=== PATIENT | male | born 1945 | race American Indian/Alaskan Native ===

== ENCOUNTER 2016-12-11 07:38 | Inpatient (IN) | payer MEDICARE ==
[2016-12-11] MEDS ORDERED: ECOTRIN PO ONE (08:07)
[2016-12-11 08:35] LABS: Hematocrit 33.3 % (35.5-45.6); Hemoglobin 10.6 gm/dl (11.8-15.2); Mean Corpuscular HGB Conc 32 % (32-34); Mean Corpuscular Volume 80 fl (84-94); Red Blood Count 4.17 M/mm3 (3.65-5.03); Red Cell Distribution Width 16.8 % (13.2-15.2)
[2016-12-11 08:37] LABS: Mean Corpuscular Hemoglobin 26 pg (28-32)
[2016-12-11] MEDS ORDERED: HEPARIN/NS 5000 UNIT/500ML(CATH LAB) 0 ML IR ONE (08:37)
[2016-12-11 08:44] LABS: INR 0.99 (0.87-1.13)
[2016-12-11] MEDS ORDERED: HEPARIN/NS 5000 UNIT/500ML(CATH LAB) 1,000 ML IR ONE (08:50)
[2016-12-11 08:54] LABS: Anion Gap 19 mmol/L; Blood Urea Nitrogen 18 mg/dL (9-20); Carbon Dioxide 26 mmol/L (22-30); Chloride 95.5 mmol/L (98-107); Glucose 241 mg/dL (75-100); Potassium 4.2 mmol/L (3.6-5.0); Sodium 136 mmol/L (137-145)
[2016-12-11] MEDS ORDERED: NACL 0.9% 500 ML 500 ML IV SCH (09:00)
[2016-12-11 09:33] LABS: Blastocytes % (Manual) 0 %
[2016-12-11 09:34] LABS: Ovalocytes 1+; White Blood Count 18.3 K/mm3 (4.5-11.0)
[2016-12-11 09:35] LABS: Anisocytosis Few; Elliptocytes Few; Polychromasia 1+
[2016-12-11 09:36] LABS: Diff Status Complete
[2016-12-11 10:02] LABS: Platelet Count 237 K/mm3 (140-440)
[2016-12-11] MEDS: SUBLIMAZE ONE ×2 (10:20→10:33)
[2016-12-11] MEDS: VERSED ONE ×2 (10:21→10:33)
[2016-12-11] MEDS: CALAN ONE ×2 (10:22→10:35)
[2016-12-11] MEDS: XYLOCAINE 2% INFILTRATI ONE ×2 (10:22→10:34)
[2016-12-11] MEDS: HEPARIN 10,000 UNITS/10 ML ONE ×2 (10:23→10:35)
[2016-12-11] MEDS: NITROGLYCERIN SYRINGE 3 ML ONE ×2 (10:23→10:35)
[2016-12-11] MEDS ORDERED: MILK OF MAGNESIA PO PRN (11:24)
[2016-12-11] MEDS ORDERED: DULCOLAX PR PRN (11:24)
[2016-12-11] MEDS ORDERED: TYLENOL PO PRN (11:24)
[2016-12-11] MEDS ORDERED: ZOFRAN IV PRN (11:24)
--- NOTE | 2016-12-11 12:58 | Event Note ---
Date: 12/11/16 Patient with multiple obstructive CAD lesions mid LAD 70% Mid Cx (OM2 bifurcation) 70 to 80% 100% mid RCA occlusion at the site of a previous stent LVEF 30-35% Recommendations: Admit overnight Dr Maxwell to review angiograms ? PCI VS CABG Continue holding xarelto
--- NOTE | 2016-12-11 13:11 | XRay Report ---
ROUTINE CHEST, TWO VIEWS: HISTORY: Leukocytosis, fever. Heart size and pulmonary vascularity are within normal limits. There is focal thickening along the right minor fissure which was also seen on 10/10/16 and 09/02/16 exam. This probably represents segmental atelectasis or loculated fluid. Consider further evaluation with CT chest with contrast if needed. The remainder of the lungs are clear. IMPRESSION: No acute cardiopulmonary process. Right lung opacity as outlined above.
--- NOTE | 2016-12-11 16:15 | Cardiac Catherization Report ---
NUCLEAR CARDIAC IMAGING INDICATION FOR PROCEDURE: Chest pain, abnormal right cardiac perfusion scan. ORDERING PHYSICIAN: Oswald Kurtz MD PROCEDURES PERFORMED: 1. Selective left and right coronary angiography. 2. Left ventriculography. DESCRIPTION OF PROCEDURE: 1. After obtaining written consent, the patient was draped using sterile technique. 2. A 2% lidocaine was injected into the right wrist. 3. A 5-Georgian vascular sheath was inserted into the right radial artery. 4. A 5-Georgian catheter JL 3.5 was used to selectively engage the left coronary artery. 5. A 5-Georgian JR4 catheter was used to selectively engage the right coronary artery. 6. A 5-Georgian JR4 catheter was used to hand inject the right ventriculogram. 7. No complications occurred during the procedure. 8. Hemostasis was achieved at the end of the procedure using manual pressure. ESTIMATED BLOOD LOSS: Minimal. SPECIMEN REMOVED: None. FINDINGS: HEMODYNAMICS: Aortic pressure was 140/77, LV systolic pressure was 159 mmHg, and left ventricular end-diastolic pressure was measured at 26 mmHg. There was no significant gradient noted across the left ventricular outflow tract. CARDIAC STRUCTURES: The left ventricle is mildly dilated. There is evidence of moderate global left ventricular hypokinesis. The left ventricular ejection fraction is estimated between 30 and 35%. CORONARY ANATOMY: 1. This is a right dominant circulation. 2. The left main had mild nonobstructive luminal irregularities. 3. The left anterior descending artery has evidence for a focal 70% stenosis noted in the mid segment. 4. The left circumflex artery has evidence of a 70 to 80% lesion distal to the bifurcation of the second obtuse marginal. The second obtuse marginal has a patent stent noted in the mid segment. There is also another patent stent noted in the proximal portion of the posterolateral of obtuse marginal branch. 5. The right coronary artery noted to be a 100% occluded in the mid segment at the site of the previously placed stent. There is evidence of faint left to right collaterals noted. IMPRESSION: 1. Evidence of significant 3-vessel disease with a 70% focal stenosis of the mid LAD, 70 to 80% focal stenosis of the mid circumflex artery at the bifurcation of the second obtuse marginal and 100% occlusion of the mid right coronary artery at the previously placed stent. The right coronary artery with patent was noted to be patent back in 01/2014. 2. Moderate global left ventricular hypokinesis with an ejection fraction estimated between 30 and 35%. 3. Elevated LVEDP measured at 26 mmHg. RECOMMENDATIONS: The patient will be recommended for inpatient admission for IV hydration. The patient angiograms will be issued by the Interventional Cardiology and appropriate plan of percutaneous coronary intervention versus coronary artery bypass grafting will be decided based on this review. JOB# [id number] PHILLIP/YVONNE
[2016-12-11] MEDS: GLUCOTROL XL PO SCH ×2 (17:51→17:59)
[2016-12-12 05:43] LABS: Anion Gap 16 mmol/L; Blood Urea Nitrogen 15 mg/dL (9-20); Calcium 8.4 mg/dL (8.4-10.2); Carbon Dioxide 28 mmol/L (22-30); Chloride 98.7 mmol/L (98-107); Glucose 211 mg/dL (75-100); Potassium 4.1 mmol/L (3.6-5.0); Sodium 139 mmol/L (137-145)
[2016-12-12] MEDS ORDERED: ASPIRIN PO SCH (10:00)
[2016-12-12] MEDS ORDERED: COLCRYS PO SCH (10:00)
[2016-12-12] MEDS ORDERED: ZESTRIL PO SCH (10:00)
[2016-12-12] MEDS ORDERED: NON-FORMULARY (Colchicine [Colchicine] 0.6 MG) PO SCH (10:00)
[2016-12-12] MEDS ORDERED: NON-FORMULARY (Atorvastatin [Lipitor] 80 MG) PO SCH (10:00)
[2016-12-12] MEDS ORDERED: LOVENOX SUB-Q SCH (10:00)
--- NOTE | 2016-12-12 10:17 | Admit Criteria Form ---
Admission Criteria Documentation: TELEMETRY CARE Telemetry Admission Guidelines (Place 'X' for any and all applicable criteria): Admission to telemetry [A] may be indicated for ANY ONE of the following(1)(2)(3 )(4)(5): [X]I. Cardiac disease, including ANY ONE of the following (9)(10)(11)(12)(13 ): [ ]a) Postacute NE [ ]b) Low-risk patients with ST-segment elevation NE who have undergone successful percutaneous coronary intervention [ ]c) Unstable angina [ ]d) Suspected NE (until it is ruled out) [ ]e) Post cardiac surgery (first 48 to 72 hours unless complications occur) [ ]f) Acute arrhythmias (including significant tachycardia or bradycardia) [B] [ ]g) Firing of an implantable cardioverter defibrillator [C] [ ]h) Suspected pacemaker or implantable cardioverter defibrillator malfunction (10) [ ]i) New administration or adjustment of an antiarrhythmic drug [D ] [ ]j) Child admitted for acute congestive heart failure [ ]j) Long QT syndrome [ ]k) Advanced heart block (eg, second-degree Mobitz type II, third- degree heart block) [ ]l) Acute myocarditis or pericarditis [X]m) Short-term (ambulatory or inpatient) monitoring after a cardiac procedure as indicated by ANY ONE of the following [E]: [ ]i) Electrophysiologic studies [X]ii) Percutaneous coronary intervention with stent placement [ ]iii) Pacemaker placement with cardiac conduction defect [ ]iv) Implantable cardiac defibrillator placement [ ]II. Drug overdose or poisoning with substance that causes arrhythmias or QT prolongation (eg, phenothiazines, sympathomimetic agents, cyclic antidepressants, digitalis, antiarrhythmic drugs)(15) [ ]III. Short-term (ambulatory or inpatient) monitoring after therapeutic or diagnostic procedure requiring conscious sedation or anesthesia (eg, endoscopy, elective cardioversion) [ ]IV. Acute cerebrovascular even[F](18) [ ]V. Massive blood transfusion (eg, at least 10 units of packed red blood cells in 24 hours) [ ]. Variceal bleeding after endoscopy, sclerotherapy, or IV vasopressin [ ]VII. Uncorrected electrolyte abnormalities associated with an increased risk of dangerous arrhythmia [G]; examples include [ ]a) Hyperkalemia with attributable ECG changes [ ]b) Potassium greater than 6.5 mmol/L (mEq/L) in a patient without history of chronic renal disease [ ]c) Prolonged QT attributed to hypokalemia, hypomagnesemia, or hypocalcemia [ ]VIII.Unexplained syncope or other neurologic event suspected of being due to arrhythmia due to a finding that increases risk; examples include(19)(20)(21): [ ]a) High-risk ECG findings (eg, bifascicular block, bradycardia, abnormal QT interval, ventricular pre- excitation) [ ]b) History of previous syncope due to arrhythmia [ ]c) Abnormal ventricular function (eg, reduced ejection fraction ) [ ]d) Exertional or supine syncope [ ]e) Concerning syncope characteristics (eg, sudden loss of consciousness without prodrome) [ ]f) Family history of sudden [ ]g) Use of arrhythmogenic medication [ ]h) Suspected cardiac ischemia [ ]i) Known channelopathy (eg, long QT syndrome, Brugada syndrome, or catecholaminergic paroxysmal ventricular tachycardia) [ ]j) Known structural heart disease (eg, hypertrophic cardiomyopathy , severe valvular disease) [ ]k) Palpitations preceding syncope The original [employer] content created by [employer] has been revised. The portions of the content which have been revised are identified through the use of italic text or in bold, and [email or web address] has neither reviewed nor approved the modified material. All other unmodified content is copyright [employer]. Please see references footnoted in the original [employer] edition 2016 Admission Criteria Met: Yes
[2016-12-12] MEDS: GLUCOTROL XL PO SCH (10:18)
--- NOTE | 2016-12-12 10:52 | Short Stay Summary ---
<ALBERT CAMERON - Last Filed: 12/12/16 11:22> Short Stay Documentation Date of service: 12/12/16 - History H&P: obtained from office - Allergies and Medications Current Medications: Allergies No Known Allergies Allergy (Verified 04/28/15 18:04) Home Medications Medication Instructions Recorded Confirmed Last Taken Type Atorvastatin [Lipitor] 80 mg PO QDAY #30 tablet 02/04/14 12/11/16 12/10/16 Rx 80mg Lisinopril [Zestril TAB] 2.5 mg PO QDAY #30 tablet 02/04/14 12/11/16 12/11/16 Rx 2.5mg glipiZIDE [glipiZIDE XL] 10 mg PO Q12H #60 tab.er.24 02/04/14 12/11/16 12/10/16 Rx 10mg metFORMIN [Glucophage] 1,000 mg PO BID #60 tablet 02/04/14 12/11/16 12/08/16 Rx 1000mg Aspirin [Adult Low Dose Aspirin EC] 81 mg PO DAILY 11/10/15 12/11/16 12/08/16 History 81mg guaiFENesin ER [Mucinex ER] 600 mg PO BID #14 tablet 09/04/16 12/11/16 12/10/16 Rx 600mg Colchicine 0.6 mg PO DAILY 10/10/16 12/11/16 12/10/16 History 0.6mg Rivaroxaban [Xarelto] 20 mg PO QDAY 10/10/16 12/11/16 12/08/16 History 20mg Active Medications Acetaminophen (Tylenol) 650 mg PO Q4H PRN PRN Reason: Pain MILD(1-3)/Fever >100.5/BOND Last Admin: 12/11/16 21:06 Dose: 650 mg Aspirin (Aspirin) 325 mg PO QDAY [facility] Last Admin: 12/12/16 10:18 Dose: 325 mg Atorvastatin Calcium (Lipitor) 80 mg PO QHS [facility] Last Admin: 12/11/16 21:06 Dose: 80 mg Bisacodyl (Dulcolax) 10 mg HI QDAY PRN PRN Reason: Constipation unrelieved by MOM Colchicine (Colcrys) 0.6 mg PO QDAY [facility] Last Admin: 12/12/16 10:18 Dose: 0.6 mg Enoxaparin Sodium (Lovenox) 40 mg SUB-Q DAILY [facility] Last Admin: 12/12/16 10:18 Dose: 40 mg Glipizide (Glucotrol Xl) 10 mg PO BIDDIAB [facility] Last Admin: 12/12/16 10:18 Dose: 10 mg Lisinopril (Zestril) 2.5 mg PO QDAY [facility] Last Admin: 12/12/16 10:18 Dose: 2.5 mg Magnesium Hydroxide (Milk Of Magnesia) 30 ml PO Q4H PRN PRN Reason: Constipation Ondansetron HCl (Zofran) 4 mg IV Q8H PRN PRN Reason: N/V unrelieved by Reglan - Physical exam General appearance: no acute distress HEENT: PERRLA Lungs: Clear to auscultation Heart: Regular rate Neurological: Normal speech - Brief post op/procedure progress note Condition: stable - Disposition Condition at discharge: Good Disposition: DISCHARGED TO HOME OR SELFCARE Short Stay Discharge Plan Activity: advance as tolerated Diet: low fat, low cholesterol, low salt, diabetic Special Instructions: other (Post cardiac cath instructions) Additional Instructions: RESTART METFORMIN 48HRS POST CARDIAC CATH Follow up with: PRIMARY CAREMD [Primary Care Provider] - 7 Days SARITHA PRASAD MD [Staff Physician] - 7 Days Forms: [facility] PCI D/C Instructions Prescriptions: ISOSORBIDE MONOnitrate [Imdur ER] 60 mg PO QDAY #30 tab.er.24h Clopidogrel [Plavix] 75 mg PO QDAY #30 tablet Ranolazine [Ranexa] 500 mg PO BID #60 tab.er.12h <MAURO RODRIGUEZ - Last Filed: 12/12/16 11:58> Short Stay Documentation - Allergies and Medications Current Medications: Allergies No Known Allergies Allergy (Verified 04/28/15 18:04) Home Medications Medication Instructions Recorded Confirmed Last Taken Type Atorvastatin [Lipitor] 80 mg PO QDAY #30 tablet 02/04/14 12/11/16 12/10/16 Rx 80mg Lisinopril [Zestril TAB] 2.5 mg PO QDAY #30 tablet 02/04/14 12/11/16 12/11/16 Rx 2.5mg glipiZIDE [glipiZIDE XL] 10 mg PO Q12H #60 tab.er.24 02/04/14 12/11/16 12/10/16 Rx 10mg metFORMIN [Glucophage] 1,000 mg PO BID #60 tablet 02/04/14 12/11/16 12/08/16 Rx 1000mg Colchicine 0.6 mg PO DAILY 10/10/16 12/11/16 12/10/16 History 0.6mg Rivaroxaban [Xarelto] 20 mg PO QDAY 10/10/16 12/11/16 12/08/16 History 20mg Clopidogrel [Plavix] 75 mg PO QDAY #30 tablet 12/12/16 Unknown Rx ISOSORBIDE MONOnitrate [Imdur ER] 60 mg PO QDAY #30 tab.er.24h 12/12/16 Unknown Rx Ranolazine [Ranexa] 500 mg PO BID #60 tab.er.12h 12/12/16 Unknown Rx Active Medications Acetaminophen (Tylenol) 650 mg PO Q4H PRN PRN Reason: Pain MILD(1-3)/Fever >100.5/BOND Last Admin: 12/11/16 21:06 Dose: 650 mg Aspirin (Aspirin) 325 mg PO QDAY [facility] Last Admin: 12/12/16 10:18 Dose: 325 mg Atorvastatin Calcium (Lipitor) 80 mg PO QHS [facility] Last Admin: 12/11/16 21:06 Dose: 80 mg Bisacodyl (Dulcolax) 10 mg HI QDAY PRN PRN Reason: Constipation unrelieved by MOM Colchicine (Colcrys) 0.6 mg PO QDAY [facility] Last Admin: 12/12/16 10:18 Dose: 0.6 mg Enoxaparin Sodium (Lovenox) 40 mg SUB-Q DAILY [facility] Last Admin: 12/12/16 10:18 Dose: 40 mg Glipizide (Glucotrol Xl) 10 mg PO BIDDIAB [facility] Last Admin: 12/12/16 10:18 Dose: 10 mg Lisinopril (Zestril) 2.5 mg PO QDAY [facility] Last Admin: 12/12/16 10:18 Dose: 2.5 mg Magnesium Hydroxide (Milk Of Magnesia) 30 ml PO Q4H PRN PRN Reason: Constipation Ondansetron HCl (Zofran) 4 mg IV Q8H PRN PRN Reason: N/V unrelieved by Reglan - Hospital course Hospital course: The patient's angiograms were reviewed. The right coronary artery is extensively stented, from the proximal segment all the way down to the acute margin. Within this stented segment, there is a long chronic total occlusion of this vessel, with collateralization of small caliber distal segments from the left coronary system. The circumflex artery is also extensively stented, and demonstrates a moderate severity, nonobstructive de bella bifurcation stenosis in its midsegment. The LAD was not previously stented, has mild to moderate diffuse atherosclerosis, also with a moderate severity, nonobstructive stenosis of its proximal to mid segment. After review of the angiograms, recommend medical therapy and aggressive risk factor modification. We'll add long-acting nitrates to the patient's regimen, in addition to Ranexa 500 mg twice a day.
--- NOTE | 2016-12-12 12:00 | Event Note ---
Date: 12/12/16 The patient's angiograms were reviewed. The right coronary artery is extensively stented, from the proximal segment all the way down to the acute margin. Within this stented segment, there is a long chronic total occlusion of this vessel, with collateralization of small caliber distal segments from the left coronary system. The circumflex artery is also extensively stented, and demonstrates a moderate severity, nonobstructive de bella bifurcation stenosis in its midsegment. The LAD was not previously stented, has mild to moderate diffuse atherosclerosis, also with a moderate severity, nonobstructive stenosis of its proximal to mid segment. After review of the angiograms, recommend medical therapy and aggressive risk factor modification. We'll add long-acting nitrates to the patient's regimen, in addition to Ranexa 500 mg twice a day.
[2016-12-12 12:14] VITALS: BP 139/72
== END 2016-12-12 14:21 | disposition home or self-care (01) | DRG 287 ==
LOC: OPU 07:38 → 4A 11:24
PROVIDERS: ADMIT Internal Medicine Cardiovascular Disease; ATTEND Internal Medicine Cardiovascular Disease
PROC: 4A023N7 Measurement of Cardiac Sampling and Pressure, Left Heart, Percutaneous Approach (ICD-10-PCS; principal; 2016-12-11)
PROC: B2111ZZ Fluoroscopy of Multiple Coronary Arteries using Low Osmolar Contrast (ICD-10-PCS; 2016-12-11)
PROC: B2151ZZ Fluoroscopy of Left Heart using Low Osmolar Contrast (ICD-10-PCS; 2016-12-11)
DX: T82.855A Stenosis of coronary artery stent, initial encounter (principal); I25.10 Atherosclerotic heart disease of native coronary artery without angina pectoris; E78.5 Hyperlipidemia, unspecified; E11.9 Type 2 diabetes mellitus without complications; I25.82 Chronic total occlusion of coronary artery; I10 Essential (primary) hypertension; E66.9 Obesity, unspecified; E78.00 Pure hypercholesterolemia, unspecified; Z86.73 Personal history of transient ischemic attack (TIA), and cerebral infarction without residual deficits; Z79.82 Long term (current) use of aspirin; Z79.899 Other long term (current) drug therapy
CPT/HCPCS: 36415; 71020; 80048; 82962; 85007; 85025; 85610; 85730; 93005; 93010; 93458; A9270-GY; C1894; J1644; J1650; J2250; J3010; J7040; Q9967

== ENCOUNTER 2017-09-30 09:07 | Outpatient (CLI) | payer MEDICARE ==
--- NOTE | 2017-09-30 11:40 | Ultrasound Report ---
Renal ultrasound: Renal failure. The right renal length is 10.7 cm and the left renal length is 10.2 cm. The echogenicity of both kidneys is unremarkable. There is no renal mass and no hydronephrosis. Imaging of the urinary bladder is unremarkable. Impression: Normal exam. Bladder residual: The prevoid bladder has a volume of 300 mL. Post void bladder volume is 145 mL.
== END 2017-09-30 09:08 | disposition home or self-care (01) ==
LOC: US 09:07
PROVIDERS: ATTEND Internal Medicine Nephrology
DX: R94.4 Abnormal results of kidney function studies (principal)
CPT/HCPCS: 76770; 76857

== ENCOUNTER 2017-10-06 13:57 | Outpatient (CLI) | payer MEDICARE ==
[2017-10-06 14:43] LABS: Basophils % (Auto) 0.7 % (0.0-1.8); Eosinophils % (Auto) 1.8 % (0.0-4.3); Hematocrit 35.6 % (35.5-45.6); Hemoglobin 11.4 gm/dl (11.8-15.2); Mean Corpuscular HGB Conc 32 % (32-34); Mean Corpuscular Hemoglobin 27 pg (28-32); Mean Corpuscular Volume 83 fl (84-94); Platelet Count 197 K/mm3 (140-440); Red Blood Count 4.28 M/mm3 (3.65-5.03); Red Cell Distribution Width 15.1 % (13.2-15.2); White Blood Count 7.4 K/mm3 (4.5-11.0)
[2017-10-06 14:51] LABS: Anion Gap 19 mmol/L; BUN/Creatinine Ratio 16; Blood Urea Nitrogen 21 mg/dL (9-20); Carbon Dioxide 26 mmol/L (22-30); Glucose 134 mg/dL (75-100); Potassium 3.9 mmol/L (3.6-5.0); Sodium 141 mmol/L (137-145)
== END 2017-10-06 13:58 | disposition home or self-care (01) ==
LOC: LAB 13:57
PROVIDERS: ATTEND Internal Medicine Nephrology
DX: I13.0 Hypertensive heart and chronic kidney disease with heart failure and stage 1 through stage 4 chronic kidney disease, or unspecified chronic kidney disease (principal); I50.9 Heart failure, unspecified; N18.9 Chronic kidney disease, unspecified; E11.22 Type 2 diabetes mellitus with diabetic chronic kidney disease; M10.9 Gout, unspecified; R94.4 Abnormal results of kidney function studies
CPT/HCPCS: 36415; 80048; 80074; 82040; 82565; 82570; 82575; 84100; 84165; 85025; 86021; 86225

== ENCOUNTER 2018-01-15 10:43 | Outpatient (CLI) | payer MEDICARE ==
[2018-01-15 11:14] LABS: Basophils # (Auto) 0.1 K/mm3 (0.0-0.1); Basophils % (Auto) 0.9 % (0.0-1.8); Eosinophils # (Auto) 0.2 K/mm3 (0.0-0.4); Eosinophils % (Auto) 1.9 % (0.0-4.3); Hematocrit 35.8 % (35.5-45.6); Hemoglobin 11.7 gm/dl (11.8-15.2); Lymphocytes # (Auto) 2.1 K/mm3 (1.2-5.4); Lymphocytes % (Auto) 26.5 % (13.4-35.0); Mean Corpuscular HGB Conc 33 % (32-34); Mean Corpuscular Hemoglobin 28 pg (28-32); Mean Corpuscular Volume 84 fl (84-94); Monocytes # (Auto) 0.8 K/mm3 (0.0-0.8); Monocytes % (Auto) 9.6 % (0.0-7.3); Platelet Count 180 K/mm3 (140-440); Red Blood Count 4.25 M/mm3 (3.65-5.03); Red Cell Distribution Width 14.3 % (13.2-15.2)
[2018-01-15 11:22] LABS: Albumin 3.8 g/dL (3.9-5); BUN/Creatinine Ratio 12; Blood Urea Nitrogen 17 mg/dL (9-20); Calcium 8.7 mg/dL (8.4-10.2); Hemolysis Index 16
== END 2018-01-15 10:44 | disposition home or self-care (01) ==
LOC: LAB 10:43
PROVIDERS: ATTEND Internal Medicine Nephrology
DX: I13.0 Hypertensive heart and chronic kidney disease with heart failure and stage 1 through stage 4 chronic kidney disease, or unspecified chronic kidney disease (principal); I50.9 Heart failure, unspecified; N18.9 Chronic kidney disease, unspecified; E11.22 Type 2 diabetes mellitus with diabetic chronic kidney disease; M10.9 Gout, unspecified; E66.9 Obesity, unspecified; R94.4 Abnormal results of kidney function studies; J44.9 Chronic obstructive pulmonary disease, unspecified; I25.10 Atherosclerotic heart disease of native coronary artery without angina pectoris; E78.00 Pure hypercholesterolemia, unspecified
CPT/HCPCS: 36415; 80048; 82040; 84100; 85025; 86334

== ENCOUNTER 2018-03-23 10:45 | Outpatient (CLI) | payer MEDICARE ==
[2018-03-23 11:03] LABS: Basophils % (Auto) 0.1 % (0.0-1.8); Eosinophils # (Auto) 0.1 K/mm3 (0.0-0.4); Eosinophils % (Auto) 1.8 % (0.0-4.3); Hematocrit 34.2 % (35.5-45.6); Hemoglobin 10.6 gm/dl (11.8-15.2); Lymphocytes # (Auto) 1.9 K/mm3 (1.2-5.4); Lymphocytes % (Auto) 27.7 % (13.4-35.0); Mean Corpuscular HGB Conc 31 % (32-34); Mean Corpuscular Hemoglobin 26 pg (28-32); Mean Corpuscular Volume 83 fl (84-94); Monocytes # (Auto) 0.6 K/mm3 (0.0-0.8); Monocytes % (Auto) 9.2 % (0.0-7.3); Platelet Count 178 K/mm3 (140-440)
[2018-03-23 11:31] LABS: Albumin 3.7 g/dL (3.9-5); BUN/Creatinine Ratio 13; Blood Urea Nitrogen 18 mg/dL (9-20); Calcium 8.7 mg/dL (8.4-10.2); Hemolysis Index 4
== END 2018-03-23 10:46 | disposition home or self-care (01) ==
LOC: LAB 10:45
PROVIDERS: ATTEND Internal Medicine Nephrology
DX: R94.4 Abnormal results of kidney function studies (principal)
CPT/HCPCS: 36415; 80048; 82040; 84100; 85025; 86334

== ENCOUNTER 2018-05-11 16:04 | Emergency (ER) | payer MEDICARE ==
[2018-05-11 17:13] LABS: Hematocrit 36.1 % (35.5-45.6); Hemoglobin 11.7 gm/dl (11.8-15.2); Mean Corpuscular HGB Conc 32 % (32-34); Mean Corpuscular Hemoglobin 26 pg (28-32); Mean Corpuscular Volume 82 fl (84-94); Platelet Count 185 K/mm3 (140-440); Red Blood Count 4.43 M/mm3 (3.65-5.03); Red Cell Distribution Width 15.6 % (13.2-15.2)
[2018-05-11 17:40] LABS: Calcium 9.4 mg/dL (8.4-10.2)
[2018-05-11 20:57] VITALS: BP 128/56
--- NOTE | 2018-05-11 21:46 | Emergency Department Report ---
ED General Adult HPI - General Chief complaint: Medical Clearance Stated complaint: ABNORMAL LABS Time Seen by Provider: 05/11/18 19:59 Source: patient Mode of arrival: Ambulatory Limitations: No Limitations - History of Present Illness Initial comments: Patient is a 73-year-old male past medical history of renal insufficiency congestive heart failure diabetes type 2 and coronary disease with stents 4 who is presenting with need for her kidney function rechecked. Patient saw his primary doctor on April 29 and had blood work drawn for because of some increased swelling in his lower extremities. Patient was called today because his kidney function was abnormal. Patient does have the labs here and his BUN/creatinine was 47 and 2.5 to. On the beginning of last month his kidney for was 18 and 1.4 respectively. Patient states he has no increased shortness of breath cough fever chills nausea vomiting diarrhea chest pain. Patient states he feels as though he is at his baseline. Severity scale (0 -10): 0 - Related Data Home Medications Medication Instructions Recorded Confirmed Last Taken Rivaroxaban [Xarelto] 20 mg PO QDAY 10/10/16 09/01/17 09/01/17 Allopurinol [Zyloprim] 100 mg PO BID 09/01/17 09/01/17 09/01/17 Carvedilol [Coreg] 12.5 mg PO BID 09/01/17 09/01/17 09/01/17 Cholecalciferol (Vitamin D3) 400 unit PO DAILY 09/01/17 09/01/17 09/01/17 [Vitamin D3] Fish Oil/Borage/Flax/Om3,6,9 1 1,200 mg PO DAILY 09/01/17 09/01/17 Unknown [[place] 3-6-9 1,200 mg Softgel] HYDROcodone/APAP 7.5-325 [[place] 1 tab PO DAILY PRN 09/01/17 09/01/17 Unknown 7.5-325 mg TAB] ISOSORBIDE MONOnitrate [Imdur ER] 60 mg PO BID 09/01/17 09/01/17 09/01/17 Ipratropium/Albuterol Sulfate 1 puff IH Q8H PRN 09/01/17 09/01/17 Unknown [Combivent Respimat] Nitroglycerin [Nitrostat] 0.4 mg SL Q5M PRN 09/01/17 09/01/17 Unknown Previous Rx's Medication Instructions Recorded Last Taken Type AtorvaSTATin [Lipitor] 80 mg PO QDAY tablet 09/04/17 Unknown Rx Cholecalciferol Vit D3 [Vitamin D3] 400 unit PO QDAY tablet 09/04/17 Unknown Rx Clopidogrel [Plavix] 75 mg PO QDAY tablet 09/04/17 Unknown Rx Colchicine [Colcrys] 0.6 mg PO QDAY tablet 09/04/17 Unknown Rx Metolazone [Zaroxolyn] 5 mg PO 1XW #4 tablet 09/04/17 Unknown Rx Torsemide [Demadex] 40 mg PO DAILY #30 tablet 09/04/17 Unknown Rx glipiZIDE [Glipizide] 10 mg PO BID 30 Days tablet 09/04/17 Unknown Rx glipiZIDE [Glucotrol] 10 mg PO BID #60 tablet 09/04/17 Unknown Rx Allergies Allergy/AdvReac Type Severity Reaction Status Date / Time No Known Allergies Allergy Verified 04/28/15 18:04 ED Review of Systems ROS: Stated complaint: ABNORMAL LABS Other details as noted in HPI Comment: All other systems reviewed and negative ED Past Medical Hx - Past Medical History Hx Hypertension: Yes Hx CVA: Yes Hx Heart Attack/AMI: Yes Hx Congestive Heart Failure: Yes Hx Diabetes: Yes (type 2) Hx Deep Vein Thrombosis: Yes Hx Pulmonary Embolism: Yes Hx GERD: No Hx Liver Disease: No Hx Renal Disease: No Hx Sickle Cell Disease: No Hx Arthritis: Yes (knees gout) Hx Headaches / Migraines: No Hx Seizures: No Hx Kidney Stones: No Hx Psychiatric Treatment: No Hx Asthma: No Hx COPD: No Hx Tuberculosis: No Hx Dementia: No Hx HIV: No Additional medical history: Cardiac Angioplasty/ stent placement x 4 in the RCA (most recent February 2013). CAD,AFIB. SLEEP APNEA,GOUT, HOME O2 2L - Surgical History Hx Coronary Stent: Yes Hx Open Heart Surgery: No Hx Pacemaker: No Hx Internal Defibrillator: No Hx Cholecystectomy: No Hx Appendectomy: No Hx Breast Surgery: No - Social History Smoking Status: Never Smoker Substance Use Type: None - Medications Home Medications: Home Medications Medication Instructions Recorded Confirmed Last Taken Type Rivaroxaban [Xarelto] 20 mg PO QDAY 10/10/16 09/01/17 09/01/17 History Allopurinol [Zyloprim] 100 mg PO BID 09/01/17 09/01/17 09/01/17 History Carvedilol [Coreg] 12.5 mg PO BID 09/01/17 09/01/17 09/01/17 History Cholecalciferol (Vitamin D3) 400 unit PO DAILY 09/01/17 09/01/17 09/01/17 History [Vitamin D3] Fish Oil/Borage/Flax/Om3,6,9 1 1,200 mg PO DAILY 09/01/17 09/01/17 Unknown History [[place] 3-6-9 1,200 mg Softgel] HYDROcodone/APAP 7.5-325 [[place] 1 tab PO DAILY PRN 09/01/17 09/01/17 Unknown History 7.5-325 mg TAB] ISOSORBIDE MONOnitrate [Imdur ER] 60 mg PO BID 09/01/17 09/01/17 09/01/17 History Ipratropium/Albuterol Sulfate 1 puff IH Q8H PRN 09/01/17 09/01/17 Unknown History [Combivent Respimat] Nitroglycerin [Nitrostat] 0.4 mg SL Q5M PRN 09/01/17 09/01/17 Unknown History AtorvaSTATin [Lipitor] 80 mg PO QDAY tablet 09/04/17 Unknown Rx Cholecalciferol Vit D3 [Vitamin D3] 400 unit PO QDAY tablet 09/04/17 Unknown Rx Clopidogrel [Plavix] 75 mg PO QDAY tablet 09/04/17 Unknown Rx Colchicine [Colcrys] 0.6 mg PO QDAY tablet 09/04/17 Unknown Rx Metolazone [Zaroxolyn] 5 mg PO 1XW #4 tablet 09/04/17 Unknown Rx Torsemide [Demadex] 40 mg PO DAILY #30 tablet 09/04/17 Unknown Rx glipiZIDE [Glipizide] 10 mg PO BID 30 Days tablet 09/04/17 Unknown Rx glipiZIDE [Glucotrol] 10 mg PO BID #60 tablet 09/04/17 Unknown Rx ED Physical Exam - General Limitations: No Limitations General appearance: alert, in no apparent distress - Head Head exam: Present: atraumatic, normocephalic - Eye Eye exam: Present: normal appearance - ENT ENT exam: Present: mucous membranes moist - Neck Neck exam: Present: normal inspection - Respiratory Respiratory exam: Present: normal lung sounds bilaterally. Absent: respiratory distress, wheezes, rales, rhonchi - Cardiovascular Cardiovascular Exam: Present: regular rate, normal rhythm. Absent: systolic murmur, diastolic murmur, rubs, gallop - GI/Abdominal GI/Abdominal exam: Present: soft, normal bowel sounds. Absent: distended, tenderness, guarding, rebound - Rectal Rectal exam: Present: deferred - Extremities Exam Extremities exam: Present: normal inspection - Back Exam Back exam: Present: normal inspection - Neurological Exam Neurological exam: Present: alert, oriented X3 - Psychiatric Psychiatric exam: Present: normal affect, normal mood - Skin Skin exam: Present: warm, dry, intact, normal color. Absent: rash ED Course Vital Signs 05/11/18 05/11/18 05/11/18 16:44 20:18 20:56 Temperature 98.1 F Pulse Rate 92 H 54 L Respiratory 16 20 20 Rate Blood Pressure 106/48 Blood Pressure 128/56 [Right] O2 Sat by Pulse 98 100 Oximetry ED Medical Decision Making - Lab Data Result diagrams: 05/11/18 17:01 05/11/18 17:01 - Medical Decision Making Patient's kidney function is improved from the labs that he had last week done by his primary care physician. 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 Dr. Taylor stated that he feels comfortable having the patient go home since he is asymptomatic and has some improvement of his kidney function. Critical care attestation.: If time is entered above; I have spent that time in minutes in the direct care of this critically ill patient, excluding procedure time. ED Disposition Clinical Impression: Renal insufficiency Disposition: -01 TO HOME OR SELFCARE Is pt being admited?: No Does the pt Need Aspirin: No Condition: Stable Referrals: EMERY GARZA MD [Staff Physician] - 24 Hours (please see the kidney doctors tomorrow at 930 am )
== END 2018-05-11 22:37 | disposition home or self-care (01) ==
LOC: ED 16:04
DX: I13.0 Hypertensive heart and chronic kidney disease with heart failure and stage 1 through stage 4 chronic kidney disease, or unspecified chronic kidney disease (principal); E11.29 Type 2 diabetes mellitus with other diabetic kidney complication; N18.9 Chronic kidney disease, unspecified; Z86.718 Personal history of other venous thrombosis and embolism; Z86.711 Personal history of pulmonary embolism; M10.9 Gout, unspecified; Z95.1 Presence of aortocoronary bypass graft; I48.91 Unspecified atrial fibrillation; G47.30 Sleep apnea, unspecified
CPT/HCPCS: 36415; 80053; 83880; 85027; 93005; 93010; 99283

== ENCOUNTER 2018-06-22 14:09 | Outpatient (CLI) | payer MEDICARE ==
[2018-06-22 14:40] LABS: Basophils % (Auto) 0.7 % (0.0-1.8); Eosinophils # (Auto) 0.2 K/mm3 (0.0-0.4); Eosinophils % (Auto) 2.2 % (0.0-4.3); Hematocrit 33.3 % (35.5-45.6); Hemoglobin 10.7 gm/dl (11.8-15.2); Lymphocytes # (Auto) 2.1 K/mm3 (1.2-5.4); Mean Corpuscular HGB Conc 32 % (32-34); Mean Corpuscular Hemoglobin 28 pg (28-32); Mean Corpuscular Volume 87 fl (84-94); Monocytes # (Auto) 0.7 K/mm3 (0.0-0.8); Monocytes % (Auto) 10.4 % (0.0-7.3); Platelet Count 169 K/mm3 (140-440); Red Blood Count 3.85 M/mm3 (3.65-5.03); Red Cell Distribution Width 16.5 % (13.2-15.2)
[2018-06-22 14:44] LABS: Bacteria,Urine 1+ /HPF (Negative); Bilirubin,Urine NEG (Negative); Blood,Urine SM (Negative); Color,Urine Yellow (Yellow); Mucus,Urine FEW /HPF; Protein,Urine <15 mg/dL mg/dL (Negative); Urobilinogen,Urine < 2.0 mg/dL (<2.0); WBC,Urine > 182.0 /HPF (0.0-6.0)
[2018-06-22 14:56] LABS: Creatinine,Urine 166.4 mg/dL (0.1-20.0)
[2018-06-22 14:57] LABS: Albumin 3.7 g/dL (3.9-5); BUN/Creatinine Ratio 14; Blood Urea Nitrogen 17 mg/dL (9-20); Calcium 8.7 mg/dL (8.4-10.2); Hemolysis Index 8; Iron 79 ug/dL (49-181); Total Iron Binding Capacity 250 mcg/dL (250-450)
== END 2018-06-22 14:10 | disposition home or self-care (01) ==
LOC: LAB 14:09
DX: R94.4 Abnormal results of kidney function studies (principal); D64.9 Anemia, unspecified; M10.9 Gout, unspecified; I13.0 Hypertensive heart and chronic kidney disease with heart failure and stage 1 through stage 4 chronic kidney disease, or unspecified chronic kidney disease; E11.22 Type 2 diabetes mellitus with diabetic chronic kidney disease; N18.1 Chronic kidney disease, stage 1; I50.9 Heart failure, unspecified; I25.119 Atherosclerotic heart disease of native coronary artery with unspecified angina pectoris; E78.5 Hyperlipidemia, unspecified; J44.9 Chronic obstructive pulmonary disease, unspecified
CPT/HCPCS: 36415; 80048; 81001; 82040; 82306; 82570; 83550; 84100; 84156; 85025

== ENCOUNTER 2018-12-09 13:09 | Outpatient (CLI) | payer MEDICARE ==
[2018-12-09 13:55] LABS: Hematocrit 32.4 % (35.5-45.6); Hemoglobin 10.7 gm/dl (11.8-15.2); Mean Corpuscular HGB Conc 33 % (32-34); Mean Corpuscular Volume 84 fl (84-94); Platelet Count 211 K/mm3 (140-440); Red Blood Count 3.87 M/mm3 (3.65-5.03)
[2018-12-09 14:02] LABS: Bacteria,Urine 1+ /HPF (Negative); Bilirubin,Urine NEG (Negative); Blood,Urine MOD (Negative); Color,Urine Yellow (Yellow); Mucus,Urine FEW /HPF; Protein,Urine <15 mg/dL mg/dL (Negative); Urobilinogen,Urine < 2.0 mg/dL (<2.0)
[2018-12-09 14:03] LABS: Protein/Creatinine Ratio,Urine 0.75
[2018-12-09 14:07] LABS: WBC,Urine > 182.0 /HPF (0.0-6.0)
[2018-12-09 14:14] LABS: Albumin 3.7 g/dL (3.9-5); Calcium 9.2 mg/dL (8.4-10.2)
== END 2018-12-09 13:10 | disposition home or self-care (01) ==
LOC: LAB 13:09 → EDBD 13:09 → LAB 13:10
PROVIDERS: ATTEND Internal Medicine Nephrology
DX: R94.4 Abnormal results of kidney function studies (principal); E11.22 Type 2 diabetes mellitus with diabetic chronic kidney disease; M10.9 Gout, unspecified; E66.9 Obesity, unspecified; G47.30 Sleep apnea, unspecified; D64.9 Anemia, unspecified; R60.9 Edema, unspecified; N39.41 Urge incontinence; E78.5 Hyperlipidemia, unspecified; I11.0 Hypertensive heart disease with heart failure; I50.9 Heart failure, unspecified; E78.00 Pure hypercholesterolemia, unspecified; M19.90 Unspecified osteoarthritis, unspecified site
CPT/HCPCS: 36415; 80048; 81001; 82040; 82570; 82728; 83550; 84100; 84156; 85027; 87076; 87086; 87186

== ENCOUNTER 2019-03-11 09:22 | Outpatient (CLI) | payer MEDICARE ==
[2019-03-11] MEDS ORDERED: XYLOCAINE TOPICAL 4% TP ONE (09:35)
== END 2019-03-11 09:23 | disposition home or self-care (01) ==
LOC: WOUND 09:22
PROVIDERS: ATTEND Surgery
DX: I87.312 Chronic venous hypertension (idiopathic) with ulcer of left lower extremity (principal); L97.822 Non-pressure chronic ulcer of other part of left lower leg with fat layer exposed; I11.0 Hypertensive heart disease with heart failure; I50.9 Heart failure, unspecified; I89.0 Lymphedema, not elsewhere classified
CPT/HCPCS: 97597; 97598

== ENCOUNTER 2019-03-23 10:46 | Outpatient (CLI) | payer MEDICARE ==
[2019-03-23] MEDS ORDERED: XYLOCAINE TOPICAL 4% TP ONE (12:00)
== END 2019-03-23 10:47 | disposition home or self-care (01) ==
LOC: WOUND 10:46
PROVIDERS: ATTEND Surgery
DX: E11.622 Type 2 diabetes mellitus with other skin ulcer (principal); I87.312 Chronic venous hypertension (idiopathic) with ulcer of left lower extremity; L97.828 Non-pressure chronic ulcer of other part of left lower leg with other specified severity; I11.0 Hypertensive heart disease with heart failure; I50.9 Heart failure, unspecified; I87.2 Venous insufficiency (chronic) (peripheral); I89.0 Lymphedema, not elsewhere classified
CPT/HCPCS: 99213; G0463

== ENCOUNTER 2019-04-26 11:25 | Outpatient (CLI) | payer MEDICARE ==
[2019-04-26 12:08] LABS: Bilirubin,Urine NEG (Negative); Blood,Urine SM (Negative); Color,Urine Yellow (Yellow); Hyaline Casts,Urine 1 /LPF; Mucus,Urine FEW /HPF; Protein,Urine <15 mg/dL mg/dL (Negative); Urobilinogen,Urine < 2.0 mg/dL (<2.0)
[2019-04-26 12:17] LABS: Creatinine,Urine 211.2 mg/dL (0.1-20.0); Protein/Creatinine Ratio,Urine 0.13
[2019-04-26 12:23] LABS: Hematocrit 36.2 % (35.5-45.6); Hemoglobin 11.7 gm/dl (11.8-15.2); Mean Corpuscular HGB Conc 32 % (32-34); Mean Corpuscular Volume 83 fl (84-94); Platelet Count 199 K/mm3 (140-440); Red Blood Count 4.36 M/mm3 (3.65-5.03); Red Cell Distribution Width 14.4 % (13.2-15.2)
[2019-04-26 12:24] LABS: % Iron Saturation 16.61 %; Albumin 3.7 g/dL (3.9-5); Calcium 8.9 mg/dL (8.4-10.2)
== END 2019-04-26 11:26 | disposition home or self-care (01) ==
LOC: LAB 11:25
PROVIDERS: ATTEND Internal Medicine Nephrology
DX: E11.22 Type 2 diabetes mellitus with diabetic chronic kidney disease (principal); D64.9 Anemia, unspecified; R94.4 Abnormal results of kidney function studies; N39.41 Urge incontinence; I13.0 Hypertensive heart and chronic kidney disease with heart failure and stage 1 through stage 4 chronic kidney disease, or unspecified chronic kidney disease; I50.9 Heart failure, unspecified; N18.9 Chronic kidney disease, unspecified; M10.9 Gout, unspecified; E66.9 Obesity, unspecified; R60.9 Edema, unspecified; E78.00 Pure hypercholesterolemia, unspecified
CPT/HCPCS: 36415; 80048; 81001; 82040; 82570; 83550; 84100; 84156; 85027; 87086

== ENCOUNTER 2019-05-05 22:05 | Observation (INO) | payer MEDICARE ==
--- NOTE | 2019-05-05 22:47 | Emergency Department Report ---
ED Chest Pain HPI - General Chief Complaint: Chest Pain Stated Complaint: CHEST PAIN Time Seen by Provider: 05/05/19 22:21 Source: patient, EMS Mode of arrival: Stretcher Limitations: No Limitations - History of Present Illness Initial Comments: 74-year-old -Armenian male presents to the emergency department via EMS from home with complaints of some midsternal to right sided chest pain with some radiation towards the right shoulder that started about 2 hours prior to arrival. Patient took multiple doses of sublingual nitroglycerin without any relief. He has a past medical history of CHF, coronary artery disease with previous DE and 4 stents, atrial fibrillation, Pacemaker, DVT/PE on Xarelto, chronic lymphedema, hypertension, hyperlipidemia. Patient's primary care physician is a Dr. 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 Kurtz. No recent travel or sick contacts at home. He denies any tobacco or illicit drug use. - Related Data Home Medications Medication Instructions Recorded Confirmed Last Taken Rivaroxaban [Xarelto] 20 mg PO QDAY 10/10/16 11/11/18 09/01/17 Allopurinol [Zyloprim] 100 mg PO BID 09/01/17 11/11/18 09/01/17 Carvedilol [Coreg] 12.5 mg PO BID 09/01/17 11/11/18 09/01/17 Fish Oil/Borage/Flax/Om3,6,9 1 1,200 mg PO DAILY 09/01/17 11/11/18 Unknown [[place] 3-6-9 1,200 mg Softgel] ISOSORBIDE MONOnitrate [Imdur ER] 60 mg PO BID 09/01/17 11/11/18 09/01/17 Ipratropium/Albuterol Sulfate 1 puff IH Q8H PRN 09/01/17 11/11/18 Unknown [Combivent Respimat] Nitroglycerin [Nitrostat] 0.4 mg SL Q5M PRN 09/01/17 11/11/18 Unknown Previous Rx's Medication Instructions Recorded Last Taken Type AtorvaSTATin [Lipitor] 80 mg PO QDAY tablet 09/04/17 Unknown Rx Cholecalciferol Vit D3 [Vitamin D3 400 unit PO QDAY tablet 09/04/17 Unknown Rx 400 UNIT TAB] Colchicine [Colcrys] 0.6 mg PO QDAY tablet 09/04/17 Unknown Rx Torsemide [Demadex] 40 mg PO DAILY #30 tablet 09/04/17 Unknown Rx glipiZIDE [Glucotrol] 10 mg PO BID #60 tablet 09/04/17 Unknown Rx metOLazone [Zaroxolyn] 5 mg PO 1XW #4 tablet 09/04/17 Unknown Rx Pantoprazole [Protonix TAB] 40 mg PO QDAY #30 tablet 11/20/18 Unknown Rx Ranolazine ER [Ranexa ER] 500 mg PO BID #30 tablet 11/20/18 Unknown Rx oxyCODONE /ACETAMINOPHEN [Percocet 1 tab PO Q6HR PRN #10 tablet 11/20/18 Unknown Rx 5/325] Clindamycin [Clindamycin CAP] 300 mg PO Q8H #21 cap 03/08/19 Unknown Rx Allergies Allergy/AdvReac Type Severity Reaction Status Date / Time No Known Allergies Allergy Verified 04/28/15 18:04 Heart Score - HEART Score History: Moderately suspicious EKG: Non-specific Age: > 65 Risk factors: > 3 risk factors or hx of atherosclerotic disease Troponin: < normal limit HEART Score: 6 - Critical Actions Critical Actions: 4-6 pts:12-16.6% risk of adverse cardiac event. Should be admitted ED Review of Systems ROS: Stated complaint: CHEST PAIN Other details as noted in HPI Comment: All other systems reviewed and negative Constitutional: denies: chills, fever Eyes: denies: eye pain, vision change ENT: denies: ear pain, throat pain Respiratory: shortness of breath. denies: cough Cardiovascular: chest pain. denies: palpitations Gastrointestinal: denies: abdominal pain, vomiting Genitourinary: denies: dysuria, discharge Musculoskeletal: denies: back pain, arthralgia Skin: denies: rash, lesions Neurological: denies: headache, weakness ED Past Medical Hx - Past Medical History Hx Hypertension: Yes Hx CVA: No Hx Heart Attack/AMI: Yes (4 stents) Hx Congestive Heart Failure: Yes Hx Diabetes: Yes Hx Deep Vein Thrombosis: Yes Hx Pulmonary Embolism: Yes Hx GERD: No Hx Liver Disease: No Hx Renal Disease: Yes (VANGIE) Hx Sickle Cell Disease: No Hx Arthritis: Yes Hx Headaches / Migraines: No Hx Seizures: No Hx Kidney Stones: No Hx Psychiatric Treatment: No Hx Asthma: No Hx COPD: No Hx Tuberculosis: No Hx Dementia: No Hx HIV: No Additional medical history: Cardiac Angioplasty/ stent placement x 4 in the RCA (most recent February 2013). CAD,AFIB,lymphadema. SLEEP APNEA,GOUT, HOME O2 2L - Surgical History Hx Coronary Stent: Yes Hx Open Heart Surgery: No Hx Pacemaker: No Hx Internal Defibrillator: No Hx Cholecystectomy: No Hx Appendectomy: No Hx Breast Surgery: No Additional Surgical History: pacemaker - Social History Smoking Status: Never Smoker Substance Use Type: None - Medications Home Medications: Home Medications Medication Instructions Recorded Confirmed Last Taken Type Rivaroxaban [Xarelto] 20 mg PO QDAY 10/10/16 11/11/18 09/01/17 History Allopurinol [Zyloprim] 100 mg PO BID 09/01/17 11/11/18 09/01/17 History Carvedilol [Coreg] 12.5 mg PO BID 09/01/17 11/11/18 09/01/17 History Fish Oil/Borage/Flax/Om3,6,9 1 1,200 mg PO DAILY 09/01/17 11/11/18 Unknown History [Longs 3-6-9 1,200 mg Softgel] ISOSORBIDE MONOnitrate [Imdur ER] 60 mg PO BID 09/01/17 11/11/18 09/01/17 History Ipratropium/Albuterol Sulfate 1 puff IH Q8H PRN 09/01/17 11/11/18 Unknown History [Combivent Respimat] Nitroglycerin [Nitrostat] 0.4 mg SL Q5M PRN 09/01/17 11/11/18 Unknown History AtorvaSTATin [Lipitor] 80 mg PO QDAY tablet 09/04/17 11/11/18 Unknown Rx Cholecalciferol Vit D3 [Vitamin D3 400 unit PO QDAY tablet 09/04/17 11/11/18 Un known Rx 400 UNIT TAB] Colchicine [Colcrys] 0.6 mg PO QDAY tablet 09/04/17 11/11/18 Unknown Rx Torsemide [Demadex] 40 mg PO DAILY #30 tablet 09/04/17 11/11/18 Unknown Rx glipiZIDE [Glucotrol] 10 mg PO BID #60 tablet 09/04/17 11/11/18 Unknown Rx metOLazone [Zaroxolyn] 5 mg PO 1XW #4 tablet 09/04/17 11/11/18 Unknown Rx Pantoprazole [Protonix TAB] 40 mg PO QDAY #30 tablet 11/20/18 Unknown Rx Ranolazine ER [Ranexa ER] 500 mg PO BID #30 tablet 11/20/18 Unknown Rx oxyCODONE /ACETAMINOPHEN [Percocet 1 tab PO Q6HR PRN #10 tablet 11/20/18 Unknown Rx 5/325] Clindamycin [Clindamycin CAP] 300 mg PO Q8H #21 cap 03/08/19 Unknown Rx ED Physical Exam - General Limitations: No Limitations - Other Other exam information: GENERAL: The patient is well-developed well-nourished. HENT: Normocephalic. Atraumatic. Patient has moist mucous membranes. EYES: Extraocular motions are intact. Pupils equal reactive to light bilaterally. NECK: Supple. Trachea is midline. CHEST/LUNGS: Clear to auscultation. There is no respiratory distress noted. HEART/CARDIOVASCULAR: Irregular. There is no tachycardia. There is no murmur. ABDOMEN: Abdomen is soft, nontender. Patient has normal bowel sounds. Obese habitus.. SKIN: Bilateral lower extremity lymphedema with left greater than right. NEURO: The patient is awake, alert, and oriented. The patient is cooperative. The patient has no focal neurologic deficits. The patient has normal speech. MUSCULOSKELETAL: There is no tenderness or deformity. There is no limitation range of motion. There is no evidence of acute injury. ED Course Vital Signs 05/05/19 22:19 Temperature 98.6 F Pulse Rate 81 Respiratory 16 Rate Blood Pressure 133/84 O2 Sat by Pulse 99 Oximetry LAUREN score - Lauren Score Age > 65: (1) Yes Aspirin use within the Past 7 Days: (1) Yes 3 or more CAD Risk Factors: (1) Yes 2 or more Angina events in past 24 hrs: (1) Yes Known CAD with more than 50% Stenosis: (0) No Elevated Cardiac Markers: (0) No ST Deviation Greater than 0.5mm: (0) No LAUREN Score: 4 ED Medical Decision Making - Lab Data Result diagrams: 05/05/19 22:51 05/05/19 22:51 - EKG Data -: EKG Interpreted by Me - EKG Data When compared to previous EKG there are: no significant change Interpretation: unchanged when compared t (12/27/18), other (atrial fibrillation, nonspecific intraventricular conduction delay, LVH, prolonged QT and QTC) - Radiology Data Radiology results: image reviewed interpreted by me: Chest x-ray does not show any acute process. There are no pleural effusions, obvious pneumonia and there is no pneumothorax. - Medical Decision Making 74-year-old male presents to the emergency department with acute midsternal right-sided chest pain. The patient has a significant cardiac history including 4 cardiac stents, previous DE. He does have a history of PE/DVT but is compliant with his anticoagulation. The patient continues to have chest pain despite having taken 4 sublingual nitroglycerin. Chest x-ray did not show any acute process. First troponin was negative. The patient will be admitted to the hospital for further evaluation and treatment and was accepted for admission by the hospitalist service. - Differential Diagnosis DE, Costochondritis, Unstable Angina, GERD Critical Care Time: No Critical care attestation.: If time is entered above; I have spent that time in minutes in the direct care of this critically ill patient, excluding procedure time. ED Disposition Clinical Impression: Acute chest pain Acute exacerbation of CHF (congestive heart failure) Qualifiers: Heart failure type: unspecified Qualified Code(s): I50.9 - Heart failure, unspecified CAD (coronary artery disease) Qualifiers: Coronary Disease-Associated Artery/Lesion type: unspecified vessel or lesion type [place] vs. transplanted heart: [place] heart Associated angina: with unspecified angina Qualified Code(s): I25.119 - Atherosclerotic heart disease of [place] coronary artery with unspecified angina pectoris Disposition: -09 OP ADMIT IP TO THIS HOSP Is pt being admited?: Yes Condition: Fair Instructions: Chest Pain (ED) Time of Disposition: 23:58
[2019-05-05 23:10] LABS: Basophils % (Auto) 0.3 % (0.0-1.8); Eosinophils # (Auto) 0.2 K/mm3 (0.0-0.4); Eosinophils % (Auto) 1.8 % (0.0-4.3); Hemoglobin 10.8 gm/dl (11.8-15.2); Lymphocytes # (Auto) 1.9 K/mm3 (1.2-5.4); Lymphocytes % (Auto) 21.3 % (13.4-35.0); Mean Corpuscular HGB Conc 33 % (32-34); Mean Corpuscular Volume 83 fl (84-94); Monocytes # (Auto) 1.1 K/mm3 (0.0-0.8); Monocytes % (Auto) 12.1 % (0.0-7.3); Platelet Count 186 K/mm3 (140-440); Red Blood Count 3.98 M/mm3 (3.65-5.03); Red Cell Distribution Width 14.9 % (13.2-15.2)
[2019-05-05 23:19] LABS: INR 1.71 (0.87-1.13)
[2019-05-05 23:20] LABS: Partial Thromboplastin Time 40.8 Sec. (24.2-36.6)
[2019-05-05 23:40] LABS: Alanine Aminotransferase 10 units/L (7-56); Albumin 3.5 g/dL (3.9-5); BUN/Creatinine Ratio 9; Blood Urea Nitrogen 14 mg/dL (9-20); Hemolysis Index 4
[2019-05-05] MEDS ORDERED: MORPHINE IV ONE (23:44)
--- NOTE | 2019-05-05 23:51 | XRay Report ---
PROCEDURE: XR CHEST 1V AP TECHNIQUE: Chest radiograph single view. HISTORY: Chest Pain COMPARISONS: November 18, 2018 . FINDINGS: Heart: Normal. Mediastinum/Vessels: There is a cardiac pacemaker with the battery in the left chest wall. Lungs/Pleural space: Normal. Bony thorax: No acute osseous abnormality. Life support devices: None. IMPRESSION: No acute cardiopulmonary abnormality. This document is electronically signed by Tiffany Miller DO., May 05 2019 11:49:33 PM ET
[2019-05-06] MEDS ORDERED: DILAUDID IV PRN (00:30)
[2019-05-06] MEDS ORDERED: SODIUM CHLORIDE FLUSH SYRINGE 10 ML IV PRN ×2 (00:30→00:36)
[2019-05-06] MEDS ORDERED: MORPHINE IV PRN (00:30)
[2019-05-06] MEDS ORDERED: TYLENOL PO PRN (00:30)
[2019-05-06] MEDS ORDERED: ZOFRAN IV PRN (00:30)
[2019-05-06] MEDS ORDERED: NITROSTAT SL PRN (00:36)
[2019-05-06] MEDS ORDERED: D50W (25GM) Syringe IV PRN (00:41)
--- NOTE | 2019-05-06 00:54 | History and Physical Report ---
History of Present Illness Date of examination: 05/05/19 Date of admission: 05/05/2019 Chief complaint: Chest Pain History of present illness: 74-year-old -Filipino male with history of coronary artery disease, ME s/p stent x4, PE & DVT on Xarelto, Paroxysmal A. fib, DM2, Gout, HTN, HLD, chronic ble lymphedema, arthritis, obesity, pacemaker in situ (10/2018) who presents to [facility] ED via EMS with complaints of midsternal chest pain that radiates to right side of chest. Pt states that he started experiencing midsternal chest pain with radiation to the right side of chest approximately 6 hours ago. He tooka few doses of sublingual nitroglycerin with no relief and decided to call EMS. Denies: n/v/d, fever, cough, not to cyst, or recent sick contact Past History Past Medical History: atrial fib (paroxysmal ), arthritis, CAD (s/p stent x3), diabetes (DM2), DVT (& PE on Xarelto), heart failure, hypertension, hyperlipidemia, other (obesity, pace make 10/2018, chronic lymphedema) Medications and Allergies Allergies Allergy/AdvReac Type Severity Reaction Status Date / Time No Known Allergies Allergy Verified 04/28/15 18:04 Home Medications Medication Instructions Recorded Confirmed Last Taken Type Rivaroxaban [Xarelto] 20 mg PO QDAY 10/10/16 11/11/18 09/01/17 History Allopurinol [Zyloprim] 100 mg PO BID 09/01/17 11/11/18 09/01/17 History Carvedilol [Coreg] 12.5 mg PO BID 09/01/17 11/11/18 09/01/17 History Fish Oil/Borage/Flax/Om3,6,9 1 1,200 mg PO DAILY 09/01/17 11/11/18 Unknown History [[place] 3-6-9 1,200 mg Softgel] ISOSORBIDE MONOnitrate [Imdur ER] 60 mg PO BID 09/01/17 11/11/18 09/01/17 Histo ry Ipratropium/Albuterol Sulfate 1 puff IH Q8H PRN 09/01/17 11/11/18 Unknown History [Combivent Respimat] Nitroglycerin [Nitrostat] 0.4 mg SL Q5M PRN 09/01/17 11/11/18 Unknown History AtorvaSTATin [Lipitor] 80 mg PO QDAY tablet 09/04/17 11/11/18 Unknown Rx Cholecalciferol Vit D3 [Vitamin D3 400 unit PO QDAY tablet 09/04/17 11/11/18 Unknown Rx 400 UNIT TAB] Colchicine [Colcrys] 0.6 mg PO QDAY tablet 09/04/17 11/11/18 Unknown Rx Torsemide [Demadex] 40 mg PO DAILY #30 tablet 09/04/17 11/11/18 Unknown Rx glipiZIDE [Glucotrol] 10 mg PO BID #60 tablet 09/04/17 11/11/18 Unknown Rx metOLazone [Zaroxolyn] 5 mg PO 1XW #4 tablet 09/04/17 11/11/18 Unknown Rx Pantoprazole [Protonix TAB] 40 mg PO QDAY #30 tablet 11/20/18 Unknown Rx Ranolazine ER [Ranexa ER] 500 mg PO BID #30 tablet 11/20/18 Unknown Rx oxyCODONE /ACETAMINOPHEN [Percocet 1 tab PO Q6HR PRN #10 tablet 11/20/18 Unknown Rx 5/325] Clindamycin [Clindamycin CAP] 300 mg PO Q8H #21 cap 03/08/19 Unknown Rx Active Meds: Active Medications Acetaminophen (Tylenol) 650 mg PO Q4H PRN PRN Reason: Pain MILD(1-3)/Fever >100.5/BOND Allopurinol (Zyloprim) 100 mg PO BID [facility] Aspirin (Baby Aspirin) 81 mg PO QDAY [facility] Atorvastatin Calcium (Lipitor) 80 mg PO QHS KATIE Carvedilol (Coreg) 12.5 mg PO BID [facility] Dextrose (D50w (25gm) Syringe) 50 ml IV PRN PRN PRN Reason: Hypoglycemia Hydromorphone HCl (Dilaudid) 0.5 mg IV Q3H PRN PRN Reason: Pain , Severe (7-10) Stop: 05/06/19 23:59 Insulin Human Regular (Humulin R) 0 units SUB-Q ACHS [facility]; Protocol Morphine Sulfate (Morphine) 2 mg IV Q4H PRN PRN Reason: Pain, Moderate (4-6) Nitroglycerin (Nitrostat) 0.4 mg SL Q5M PRN PRN Reason: Chest Pain Ondansetron HCl (Zofran) 4 mg IV Q8H PRN PRN Reason: Nausea And Vomiting Pantoprazole Sodium (Protonix) 40 mg PO QDAY KATIE Rivaroxaban (Xarelto) 20 mg PO QDAY [facility]; Protocol Sodium Chloride (Sodium Chloride Flush Syringe 10 Ml) 10 ml IV BID KATIE Sodium Chloride (Sodium Chloride Flush Syringe 10 Ml) 10 ml IV PRN PRN PRN Reason: LINE FLUSH Sodium Chloride (Sodium Chloride Flush Syringe 10 Ml) 10 ml IV PRN PRN PRN Reason: LINE FLUSH Review of Systems All systems: negative (reviewed and no additional remarkable complaints except as noted) Cardiovascular: chest pain Exam - Physical Exam Narrative exam: Physical exam General appearance: Present: No acute distress - EENT Eyes: Present: PERRL, EOM intact ENT: hearing intact, poor dentition - Neck Neck: Present: supple, normal ROM - Respiratory Respiratory effort: Non-labored Respiratory: bilateral: diminished (bases) - Cardiovascular Heart rate: (bpm) Rhythm: regular Heart Sounds: Present: S1 & S2. Absent: rub, click - Extremities Extremities: no ischemia, pulses intact, abnormal () - Peripheral Assessment Peripheral Pulses: within normal limits - Abdominal General gastrointestinal: soft, non-tender, normal bowel sounds - Integumentary Integumentary: Present: warm, dry - Musculoskeletal Musculoskeletal: generalized weakness - Psychiatric Psychiatric: cooperative - Constitutional Vitals: Temp Pulse Resp BP Pulse Ox 98.6 F 74 22 135/92 100 05/05/19 22:19 05/06/19 00:31 05/06/19 00:31 05/06/19 00:31 05/06/19 00:31 Results - Labs CBC & Chem 7: 05/05/19 22:51 05/05/19 22:51 Labs: Laboratory Last Values WBC 8.8 K/mm3 (4.5-11.0) 05/05/19 22:51 RBC 3.98 M/mm3 (3.65-5.03) 05/05/19 22:51 Hgb 10.8 gm/dl (11.8-15.2) L 05/05/19 22:51 Hct 33.0 % (35.5-45.6) L 05/05/19 22:51 MCV 83 fl (84-94) L 05/05/19 22:51 MCH 27 pg (28-32) L 05/05/19 22:51 MCHC 33 % (32-34) 05/05/19 22:51 RDW 14.9 % (13.2-15.2) 05/05/19 22:51 Plt Count 186 K/mm3 (140-440) 05/05/19 22:51 Lymph % (Auto) 21.3 % (13.4-35.0) 05/05/19 22:51 [place] % (Auto) 12.1 % (0.0-7.3) H 05/05/19 22:51 Eos % (Auto) 1.8 % (0.0-4.3) 05/05/19 22:51 Baso % (Auto) 0.3 % (0.0-1.8) 05/05/19 22:51 Lymph # 1.9 K/mm3 (1.2-5.4) 05/05/19 22:51 [place] # 1.1 K/mm3 (0.0-0.8) H 05/05/19 22:51 Eos # 0.2 K/mm3 (0.0-0.4) 05/05/19 22:51 Baso # 0.0 K/mm3 (0.0-0.1) 05/05/19 22:51 Seg Neutrophils % 64.5 % (40.0-70.0) 05/05/19 22:51 Seg Neutrophils # 5.7 K/mm3 (1.8-7.7) 05/05/19 22:51 PT 19.7 Sec. (12.2-14.9) H 05/05/19 22:51 INR 1.71 (0.87-1.13) H 05/05/19 22:51 APTT 40.8 Sec. (24.2-36.6) H 05/05/19 22:51 Sodium 144 mmol/L (137-145) 05/05/19 22:51 Potassium 4.2 mmol/L (3.6-5.0) 05/05/19 22:51 Chloride 104.5 mmol/L (98-107) 05/05/19 22:51 Carbon Dioxide 25 mmol/L (22-30) 05/05/19 22:51 19 mmol/L 05/05/19 22:51 BUN 14 mg/dL (9-20) 05/05/19 22:51 1.6 mg/dL (0.8-1.5) H 05/05/19 22:51 Estimated GFR 52 ml/min 05/05/19 22:51 9 % 05/05/19 22:51 Glucose 112 mg/dL (75-100) H 05/05/19 22:51 Calcium 9.0 mg/dL (8.4-10.2) 05/05/19 22:51 0.20 mg/dL (0.1-1.2) 05/05/19 22:51 AST 10 units/L (5-40) 05/05/19 22:51 ALT 10 units/L (7-56) 05/05/19 22:51 96 units/L (35-129) 05/05/19 22:51 < 0.010 ng/mL (0.00-0.029) 05/05/19 22:51 NT-Pro-B Natriuret Pep 2148 pg/mL (0-900) H 05/05/19 22:51 7.2 g/dL (6.3-8.2) 05/05/19 22:51 3.5 g/dL (3.9-5) L 05/05/19 22:51 0.9 % 05/05/19 22:51 - Imaging and Cardiology Chest x-ray: report reviewed (acute cardiopulmonary abnormalities), image reviewed Assessment and Plan Assessment and plan: 74-year-old -Filipino male with history of coronary artery disease, [place] s/p stent x3, PE & DVT on Xarelto, Paroxysmal A. fib, DM2, Gout, HTN, HLD, chronic lymphedema, arthritis, obesity, pacemaker in situ (10/2018) who presents to [facility] ED via EMS with complaints of midsternal chest pain that radiates to right side of chest for the past 6 hours. Troponin negative 1, and elevation in BNP at 2148. CXR for acute cardiopulmonary abnormalities. EKG did not show any acute ischemic abnormalities. Will admit , treat and consult Dr. Kurtz, patient established [facility] at [facility]. Acute chest pain R/O ACS Anemia CDK Elevated BNP Hypertension CAD s/p stent x3 Pacemaker in situ (11/16/18) Paroxysmal A. fib History of PE and DVT anticoagulated on Xarelto Chronic lymphedema Arthritis DM2 GERD Obesity Plan: Continue supportive care Continuous telemetry monitoring Trend troponin Cardiology consult pending Monitor BP Resume Coreg 12.5 mg twice a day, isosorbide mononitrate 60 mg twice a day, torsemide 40 mg daily Continue Protonix Continue allopurinol and colchicine POC BG monitoring sliding scale coverage [id number] pending Monitor renal function Cr on admission 1.6, baseline Cr 1.2-1.3 (on previous admissions) Monitor hemoglobin and transfuse as needed DVT PPX on Xarelto Advance Directives: No VTE prophylaxis?: Chemical Plan of care discussed with patient/family: Yes
[2019-05-06] MEDS ORDERED: NON-FORMULARY (Ipratropium/Albuterol Sulfate [Combivent Respimat] 1 PUFF) IH PRN (01:15)
[2019-05-06] MEDS ORDERED: ZAROXOLYN PO SCH (02:00)
[2019-05-06] MEDS ORDERED: DUONEB *Not for PRN Use IH SCH (08:00)
--- NOTE | 2019-05-06 08:21 | Progress Note ---
Assessment and Plan Assessment and plan: Patient is a 74-year-old -[place] man with history of coronary artery disease, [place] s/p stent x3, PE & DVT on Xarelto, Paroxysmal A. fib, DM2, Gout, HTN, HLD, chronic lymphedema, arthritis, obesity, pacemaker in situ (10/2018) who presents to [facility] ED via EMS with complaints of midsternal chest pain that radiates to right side of chest for the past 6 hours. Troponin negative 1, and elevation in BNP at 2148. CXR for acute cardiopulmonary abnormalities. EKG did not show any acute ischemic abnormalities. Cardiology consulted, Dr. 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 Acute chest pain R/O ACS Anemia Elevated BNP Hypertension CAD s/p stent x3 Pacemaker in situ (11/16/18) Paroxysmal A. fib History of PE and DVT anticoagulated on Xarelto Chronic lymphedema Arthritis DM2 GERD Obesity Plan: Continue supportive care Continuous telemetry monitoring Trend troponin Cardiology consult pending Monitor BP Resume Coreg 12.5 mg twice a day, isosorbide mononitrate 60 mg twice a day, torsemide 40 mg daily Continue Protonix Continue allopurinol and colchicine POC BG monitoring sliding scale coverage [id number] pending Monitor renal function Cr on admission 1.6, baseline Cr 1.2-1.3 (on previous admissions) Monitor hemoglobin and transfuse as needed DVT PPX on Xarelto History Interval history: Patient was seen and examined. Follow-up on current diagnosis of Chest pains. No overnight events reported to me. Patient denies any shortness breath, nausea/vomiting or severe headaches. Imaging, nursing note, chart, labs and old chart reviewed. Discussed with patient. Hospitalist Physical - Physical exam Narrative exam: Gen: WDWN, NAD, Awake, Alert, Orientated HEENT: NCAT, EOMI, PERRL, OP Clear Neck: supple, no adenopathy, no thyromegaly, no JVD CVS/Heart: RRR, normal S1S2, pulses present bilaterally Chest/Lungs: CTA B, Symmetrical chest expansion, good air entry bilaterally GI/Abdomen: soft, NTND, good bowel sounds, no guarding or rebound /Bladder: no suprapubic tenderness, no CVA or paraspinal tenderness Extermity/Skin: no c/c/e, no obvious rash MSK: FROM x 4 Neuro: CN 2-12 grossly intact, no new focal deficits Psych: calm - Constitutional Vitals: Temp Pulse Resp BP Pulse Ox 97.7 F 66 20 137/75 100 05/06/19 03:27 05/06/19 05:16 05/06/19 03:19 05/06/19 03:19 05/06/19 03:19 Results - Labs CBC & Chem 7: 05/05/19 22:51 05/05/19 22:51 Labs: Laboratory Last Values WBC 8.8 K/mm3 (4.5-11.0) 05/05/19 22:51 RBC 3.98 M/mm3 (3.65-5.03) 05/05/19 22:51 Hgb 10.8 gm/dl (11.8-15.2) L 05/05/19 22:51 Hct 33.0 % (35.5-45.6) L 05/05/19 22:51 MCV 83 fl (84-94) L 05/05/19 22:51 MCH 27 pg (28-32) L 05/05/19 22:51 MCHC 33 % (32-34) 05/05/19 22:51 RDW 14.9 % (13.2-15.2) 05/05/19 22:51 Plt Count 186 K/mm3 (140-440) 05/05/19 22:51 Lymph % (Auto) 21.3 % (13.4-35.0) 05/05/19 22:51 [place] % (Auto) 12.1 % (0.0-7.3) H 05/05/19 22:51 Eos % (Auto) 1.8 % (0.0-4.3) 05/05/19 22:51 Baso % (Auto) 0.3 % (0.0-1.8) 05/05/19 22:51 Lymph # 1.9 K/mm3 (1.2-5.4) 05/05/19 22:51 [place] # 1.1 K/mm3 (0.0-0.8) H 05/05/19 22:51 Eos # 0.2 K/mm3 (0.0-0.4) 05/05/19 22:51 Baso # 0.0 K/mm3 (0.0-0.1) 05/05/19 22:51 Seg Neutrophils % 64.5 % (40.0-70.0) 05/05/19 22:51 Seg Neutrophils # 5.7 K/mm3 (1.8-7.7) 05/05/19 22:51 PT 19.7 Sec. (12.2-14.9) H 05/05/19 22:51 INR 1.71 (0.87-1.13) H 05/05/19 22:51 APTT 40.8 Sec. (24.2-36.6) H 05/05/19 22:51 Sodium 144 mmol/L (137-145) 05/05/19 22:51 Potassium 4.2 mmol/L (3.6-5.0) 05/05/19 22:51 Chloride 104.5 mmol/L (98-107) 05/05/19 22:51 Carbon Dioxide 25 mmol/L (22-30) 05/05/19 22:51 19 mmol/L 05/05/19 22:51 BUN 14 mg/dL (9-20) 05/05/19 22:51 1.6 mg/dL (0.8-1.5) H 05/05/19 22:51 Estimated GFR 52 ml/min 05/05/19 22:51 9 % 05/05/19 22:51 Glucose 112 mg/dL (75-100) H 05/05/19 22:51 POC Glucose 137 (70-105) H 05/06/19 05:40 6.9 % (4-6) H 05/06/19 04:40 Calcium 9.0 mg/dL (8.4-10.2) 05/05/19 22:51 0.20 mg/dL (0.1-1.2) 05/05/19 22:51 AST 10 units/L (5-40) 05/05/19 22:51 ALT 10 units/L (7-56) 05/05/19 22:51 96 units/L (35-129) 05/05/19 22:51 < 0.010 ng/mL (0.00-0.029) 05/06/19 04:40 NT-Pro-B Natriuret Pep 2148 pg/mL (0-900) H 05/05/19 22:51 7.2 g/dL (6.3-8.2) 05/05/19 22:51 3.5 g/dL (3.9-5) L 05/05/19 22:51 0.9 % 05/05/19 22:51 Active Medications - Current Medications Current Medications: Generic Name Dose Route Start Last Admin Trade Name Freq PRN Reason Stop Dose Admin Acetaminophen 650 mg 05/06/19 00:30 Tylenol PO Q4H PRN Pain MILD(1-3)/Fever >100.5/BOND Allopurinol 100 mg 05/06/19 10:00 Zyloprim PO BID [facility] Aspirin 81 mg 05/07/19 10:00 Baby Aspirin PO QDAY [facility] Atorvastatin Calcium 80 mg 05/06/19 22:00 Lipitor PO QHS [facility] Carvedilol 12.5 mg 05/06/19 10:00 Coreg PO BID [facility] Cholecalciferol 400 unit 05/06/19 10:00 Vitamin D3 PO QDAY [facility] Colchicine 0.6 mg 05/06/19 10:00 Colchicine PO QDAY [facility] Dextrose 50 ml 05/06/19 00:41 D50w (25gm) Syringe IV PRN PRN Hypoglycemia Hydromorphone HCl 0.5 mg 05/06/19 00:30 Dilaudid IV 05/06/19 23:59 Q3H PRN Pain , Severe (7-10) Insulin Human Regular 0 units 05/06/19 07:30 Humulin R SUB-Q ACHS [facility] Protocol Isosorbide Mononitrate 60 mg 05/06/19 10:00 Imdur PO BID [facility] Metolazone 5 mg 05/06/19 02:00 Zaroxolyn PO 1XW [facility] Miscellaneous Medication 1 puff 05/06/19 01:15 Ipratropium/Albuterol Sulfate [Combivent Respimat] IH Q8H PRN Shortness Of Breath Miscellaneous Medication 1,200 mg 05/06/19 10:00 Fish Oil/Borage/Flax/Om3,6,9 1 [[place] 3-6-9 1,200 Mg Softgel] PO DAILY [facility] Morphine Sulfate 2 mg 05/06/19 00:30 Morphine IV Q4H PRN Pain, Moderate (4-6) Nitroglycerin 0.4 mg 05/06/19 00:36 Nitrostat SL Q5M PRN Chest Pain Ondansetron HCl 4 mg 05/06/19 00:30 Zofran IV Q8H PRN Nausea And Vomiting Pantoprazole Sodium 40 mg 05/06/19 10:00 Protonix PO QDAY [facility] Ranolazine 500 mg 05/06/19 10:00 Ranexa Er PO BID [facility] Rivaroxaban 20 mg 05/06/19 10:00 Xarelto PO QDAY [facility] Protocol Sodium Chloride 10 ml 05/06/19 10:00 Sodium Chloride Flush Syringe 10 Ml IV BID [facility] Sodium Chloride 10 ml 05/06/19 00:30 Sodium Chloride Flush Syringe 10 Ml IV PRN PRN LINE FLUSH Sodium Chloride 10 ml 05/06/19 00:36 Sodium Chloride Flush Syringe 10 Ml IV PRN PRN LINE FLUSH Torsemide 40 mg 05/06/19 10:00 Demadex PO DAILY [facility]
[2019-05-06] MEDS: HumuLIN R SUB-Q SCH ×2 (09:57→12:31)
[2019-05-06] MEDS ORDERED: FISH OIL PO SCH ×2 (10:00→13:00)
[2019-05-06] MEDS ORDERED: IMDUR PO SCH (10:00)
[2019-05-06] MEDS ORDERED: SODIUM CHLORIDE FLUSH SYRINGE 10 ML IV SCH (10:00)
[2019-05-06] MEDS ORDERED: DEMADEX PO SCH (10:00)
[2019-05-06] MEDS ORDERED: COLCHICINE PO SCH (10:00)
[2019-05-06] MEDS ORDERED: FLAX PO SCH (10:00)
[2019-05-06] MEDS ORDERED: COREG PO SCH (10:00)
[2019-05-06] MEDS ORDERED: RANEXA ER PO SCH (10:00)
[2019-05-06] MEDS ORDERED: XARELTO PO SCH (10:00)
[2019-05-06] MEDS ORDERED: ZYLOPRIM PO SCH (10:00)
[2019-05-06] MEDS ORDERED: VITAMIN D3 PO SCH (10:00)
[2019-05-06] MEDS ORDERED: BORAGE PO SCH (10:00)
[2019-05-06] MEDS ORDERED: [UNRECOGNIZED DRUG - OTHER] PO SCH (10:00)
[2019-05-06] MEDS ORDERED: PROTONIX PO SCH (10:00)
--- NOTE | 2019-05-06 10:26 | Consultation ---
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 Patient also has a pacemaker implant, normal function by recent device interrogation. Patient was brought to this hospital with chest pain this this cardiac consulta tion. Patient describes chest pain as right sided pain associated with right shoulder and neck pain. He denies injury or trauma of his right chest pain and shoulder. Chest x-ray is normal. Cycled troponins are negative and is ECG is atrial paced rhythm with underlying LBBB. Past History Past Medical History: atrial fib (paroxysmal ), arthritis, CAD, diabetes, DVT (& PE on Xarelto), heart failure, hypertension, hyperlipidemia, other (obesity, pacemaker 10/2018, chronic lymphedema) Medications and Allergies Allergies Allergy/AdvReac Type Severity Reaction Status Date / Time No Known Allergies Allergy Verified 04/28/15 18:04 Home Medications Medication Instructions Recorded Confirmed Last Taken Type Rivaroxaban [Xarelto] 20 mg PO QDAY 10/10/16 05/06/19 05/05/19 10:00 History Allopurinol [Zyloprim] 100 mg PO BID 09/01/17 05/06/19 05/05/19 10:00 History Carvedilol [Coreg] 12.5 mg PO BID 09/01/17 05/06/19 05/05/19 17:00 History Fish Oil/Borage/Flax/Om3,6,9 1 1,200 mg PO DAILY 09/01/17 05/06/19 05/05/19 10:00 History [[place] 3-6-9 1,200 mg Softgel] ISOSORBIDE MONOnitrate [Imdur ER] 60 mg PO BID 09/01/17 05/06/19 05/05/19 17:00 History Ipratropium/Albuterol Sulfate 1 puff IH Q8H PRN 09/01/17 05/06/19 05/05/19 09:00 History [Combivent Respimat] Nitroglycerin [Nitrostat] 0.4 mg SL Q5M PRN 09/01/17 05/06/19 05/05/19 22:00 History AtorvaSTATin [Lipitor] 80 mg PO QDAY tablet 09/04/17 05/06/19 05/05/19 10:00 Rx Cholecalciferol Vit D3 [Vitamin D3 400 unit PO QDAY tablet 09/04/17 05/06/19 05/05/19 10:00 Rx 400 UNIT TAB] Colchicine [Colcrys] 0.6 mg PO QDAY tablet 09/04/17 05/06/19 05/05/19 10:00 Rx Torsemide [Demadex] 40 mg PO DAILY #30 tablet 09/04/17 05/06/19 05/05/19 10:00 Rx glipiZIDE [Glucotrol] 10 mg PO BID #60 tablet 09/04/17 05/06/19 05/05/19 17:00 Rx metOLazone [Zaroxolyn] 5 mg PO 1XW #4 tablet 09/04/17 05/06/19 05/05/19 10:00 Rx Pantoprazole [Protonix TAB] 40 mg PO QDAY #30 tablet 11/20/18 05/06/19 05/05/19 10:00 Rx Ranolazine ER [Ranexa ER] 500 mg PO BID #30 tablet 11/20/18 05/06/19 05/05/19 10 :00 Rx Active Meds: Active Medications Acetaminophen (Tylenol) 650 mg PO Q4H PRN PRN Reason: Pain MILD(1-3)/Fever >100.5/BOND Albuterol (Proventil) 2.5 mg IH Q4HRT PRN PRN Reason: Shortness Of Breath Allopurinol (Zyloprim) 100 mg PO BID [facility] Last Admin: 05/06/19 09:56 Dose: 100 mg Documented by: Aspirin (Baby Aspirin) 81 mg PO QDAY [facility] Atorvastatin Calcium (Lipitor) 80 mg PO QHS [facility] Carvedilol (Coreg) 12.5 mg PO BID [facility] Last Admin: 05/06/19 09:56 Dose: 12.5 mg Documented by: Cholecalciferol (Vitamin D3) 400 unit PO QDAY [facility] Colchicine (Colchicine) 0.6 mg PO QDAY [facility] Last Admin: 05/06/19 09:56 Dose: 0.6 mg Documented by: Dextrose (D50w (25gm) Syringe) 50 ml IV PRN PRN PRN Reason: Hypoglycemia Hydromorphone HCl (Dilaudid) 0.5 mg IV Q3H PRN PRN Reason: Pain , Severe (7-10) Stop: 05/06/19 23:59 Insulin Human Regular (Humulin R) 0 units SUB-Q ACHS [facility]; Protocol Last Admin: 05/06/19 09:57 Dose: Not Given Documented by: Isosorbide Mononitrate (Imdur) 60 mg PO BID [facility] Last Admin: 05/06/19 09:56 Dose: 60 mg Documented by: Metolazone (Zaroxolyn) 5 mg PO [facility] Miscellaneous Medication (Fish Oil/Borage/Flax/Om3,6,9 1 [[place] 3-6-9 1,200 Mg Softgel]) 1,200 mg PO DAILY [facility] Morphine Sulfate (Morphine) 2 mg IV Q4H PRN PRN Reason: Pain, Moderate (4-6) Nitroglycerin (Nitrostat) 0.4 mg SL Q5M PRN PRN Reason: Chest Pain Ondansetron HCl (Zofran) 4 mg IV Q8H PRN PRN Reason: Nausea And Vomiting Pantoprazole Sodium (Protonix) 40 mg PO QDAY [facility] Last Admin: 05/06/19 09:56 Dose: 40 mg Documented by: Ranolazine (Ranexa Er) 500 mg PO BID [facility] Last Admin: 05/06/19 09:56 Dose: 500 mg Documented by: Rivaroxaban (Xarelto) 20 mg PO QDAY [facility]; Protocol Last Admin: 05/06/19 09:56 Dose: 20 mg Documented by: Sodium Chloride (Sodium Chloride Flush Syringe 10 Ml) 10 ml IV BID [facility] Last Admin: 05/06/19 09:56 Dose: 10 ml Documented by: Sodium Chloride (Sodium Chloride Flush Syringe 10 Ml) 10 ml IV PRN PRN PRN Reason: LINE FLUSH Sodium Chloride (Sodium Chloride Flush Syringe 10 Ml) 10 ml IV PRN PRN PRN Reason: LINE FLUSH Torsemide (Demadex) 40 mg PO DAILY [facility] Last Admin: 05/06/19 09:56 Dose: 40 mg Documented by: Physical Examination Vital Signs Pulse Resp 87 14 05/05/19 22:12 05/05/19 22:12 General appearance: no acute distress HEENT: Positive: PERRL Neck: Positive: trachea midline Cardiac: Positive: Other (atrial paced) Lungs: Positive: Decreased Breath Sounds Neuro: Positive: Grossly Intact Extremities: Absent: edema Results 05/05/19 22:51 05/05/19 22:51 Cardiac Enzymes 05/05/19 Range/Units 22:51 AST 10 (5-40) units/L Coagulation 05/05/19 Range/Units 22:51 PT 19.7 H (12.2-14.9) Sec. INR 1.71 H (0.87-1.13) APTT 40.8 H (24.2-36.6) Sec. CBC 05/05/19 Range/Units 22:51 WBC 8.8 (4.5-11.0) K/mm3 RBC 3.98 (3.65-5.03) M/mm3 Hgb 10.8 L (11.8-15.2) gm/dl Hct 33.0 L (35.5-45.6) % Plt Count 186 (140-440) K/mm3 Lymph # 1.9 (1.2-5.4) K/mm3 [place] # 1.1 H (0.0-0.8) K/mm3 Eos # 0.2 (0.0-0.4) K/mm3 Baso # 0.0 (0.0-0.1) K/mm3 Comprehensive Metabolic Panel 05/05/19 Range/Units 22:51 Sodium 144 (137-145) mmol/L Potassium 4.2 (3.6-5.0) mmol/L Chloride 104.5 (98-107) mmol/L Carbon Dioxide 25 (22-30) mmol/L BUN 14 (9-20) mg/dL Creatinine 1.6 H (0.8-1.5) mg/dL Glucose 112 H (75-100) mg/dL Calcium 9.0 (8.4-10.2) mg/dL AST 10 (5-40) units/L ALT 10 (7-56) units/L Alkaline Phosphatase 96 (35-129) units/L Total Protein 7.2 (6.3-8.2) g/dL Albumin 3.5 L (3.9-5) g/dL Assessment and Plan Chronic stable angina Acute renal failure Hx of CAD s/p PCI to RCA with WILLIAMS 2010 and another PCI to mid RCA with promus stent in 2012 Cath 11/2016 - 70% tubular mid LAD stenosis, 70% focal stenosis of mid Cx at OM2 bifurcation, and 100% mid RCA occlusion at the site of prev stent recommended for medical therapy MPI 01/2018 - fixed inferior wall defect, small reversible apical and anterior wall defect Echo 09/2017 - LVEF 40-45% Paroxysmal Atrial Fibrillation Hx of Second degree AV block s/p dual chamber pacemaker implant with atrial lead revision for dislodged atrial lead 10/2018. normal function on outpatient device interrogation. Lymphedema, chronic Type II diabetes mellitus Obesity History of cerebrovascular disease History of pulmonary embolism On xarelto as an outpatient
[2019-05-06] MEDS ORDERED: PROVENTIL IH PRN (11:21)
[2019-05-06 13:24] VITALS: BP 121/54
--- NOTE | 2019-05-06 13:25 | Consultation ---
History of Present Illness - Reason for Consult Consult date: 05/06/19 Lymphedema - History of Present Illness 74-year-old -[place] male with history of coronary artery disease, [place] s/p stent x4, PE & DVT on Xarelto, Paroxysmal A. fib, DM2, Gout, HTN, HLD, chronic ble lymphedema, arthritis, obesity, pacemaker in situ (10/2018) who presents to [facility] ED via EMS with complaints of midsternal chest pain that radiates to right side of chest. Pt states that he started experiencing midst ernal chest pain with radiation to the right side of chest approximately 6 hours ago. He tooka few doses of sublingual nitroglycerin with no relief and decided to call EMS. Denies: n/v/d, fever, cough, not to cyst, or recent sick contact Patient was being precertified for a venous ablation of the lower extremities for his persistent swelling and left lower extremity ulcers. The ulcers have wa xed and waned suggestive of adequate arterial perfusion. Nonpalpable pedal pulses, but this could be secondary to severe swelling. Past History Past Medical History: atrial fib (paroxysmal ), arthritis, CAD, diabetes, DVT (& PE on Xarelto), heart failure, hypertension, hyperlipidemia, other (obesity, pacemaker 10/2018, chronic lymphedema) Medications and Allergies Allergies Allergy/AdvReac Type Severity Reaction Status Date / Time No Known Allergies Allergy Verified 04/28/15 18:04 Home Medications Medication Instructions Recorded Confirmed Last Taken Type Rivaroxaban [Xarelto] 20 mg PO QDAY 10/10/16 05/06/19 05/05/19 10:00 History Allopurinol [Zyloprim] 100 mg PO BID 09/01/17 05/06/19 05/05/19 10:00 History Carvedilol [Coreg] 12.5 mg PO BID 09/01/17 05/06/19 05/05/19 17:00 History Fish Oil/Borage/Flax/Om3,6,9 1 1,200 mg PO DAILY 09/01/17 05/06/19 05/05/19 10:00 History [[place] 3-6-9 1,200 mg Softgel] ISOSORBIDE MONOnitrate [Imdur ER] 60 mg PO BID 09/01/17 05/06/19 05/05/19 17:00 History Ipratropium/Albuterol Sulfate 1 puff IH Q8H PRN 09/01/17 05/06/19 05/05/19 09:00 History [Combivent Respimat] Nitroglycerin [Nitrostat] 0.4 mg SL Q5M PRN 09/01/17 05/06/19 05/05/19 22:00 History AtorvaSTATin [Lipitor] 80 mg PO QDAY tablet 09/04/17 05/06/19 05/05/19 10:00 Rx Cholecalciferol Vit D3 [Vitamin D3 400 unit PO QDAY tablet 09/04/17 05/06/19 05/05/19 10:00 Rx 400 UNIT TAB] Colchicine [Colcrys] 0.6 mg PO QDAY tablet 09/04/17 05/06/19 05/05/19 10:00 Rx Torsemide [Demadex] 40 mg PO DAILY #30 tablet 09/04/17 05/06/19 05/05/19 10:00 Rx glipiZIDE [Glucotrol] 10 mg PO BID #60 tablet 09/04/17 05/06/19 05/05/19 17:00 Rx metOLazone [Zaroxolyn] 5 mg PO 1XW #4 tablet 09/04/17 05/06/19 05/05/19 10:00 Rx Pantoprazole [Protonix TAB] 40 mg PO QDAY #30 tablet 11/20/18 05/06/19 05/05/19 10:00 Rx Ranolazine ER [Ranexa ER] 500 mg PO BID #30 tablet 11/20/18 05/06/19 05/05/19 10:00 Rx Active Meds: Active Medications Acetaminophen (Tylenol) 650 mg PO Q4H PRN PRN Reason: Pain MILD(1-3)/Fever >100.5/BOND Albuterol (Proventil) 2.5 mg IH Q4HRT PRN PRN Reason: Shortness Of Breath Allopurinol (Zyloprim) 100 mg PO BID [facility] Last Admin: 05/06/19 09:56 Dose: 100 mg Documented by: Aspirin (Baby Aspirin) 81 mg PO QDAY [facility] Atorvastatin Calcium (Lipitor) 80 mg PO QHS [facility] Carvedilol (Coreg) 12.5 mg PO BID [facility] Last Admin: 05/06/19 09:56 Dose: 12.5 mg Documented by: Cholecalciferol (Vitamin D3) 400 unit PO QDAY [facility] Last Admin: 05/06/19 10:30 Dose: 400 unit Documented by: Colchicine (Colchicine) 0.6 mg PO QDAY [facility] Last Admin: 05/06/19 09:56 Dose: 0.6 mg Documented by: Dextrose (D50w (25gm) Syringe) 50 ml IV PRN PRN PRN Reason: Hypoglycemia Fish Oil (Fish Oil) 4,000 mg PO QDAY [facility] Hydromorphone HCl (Dilaudid) 0.5 mg IV Q3H PRN PRN Reason: Pain , Severe (7-10) Stop: 05/06/19 23:59 Insulin Human Regular (Humulin R) 0 units SUB-Q ACHS [facility]; Protocol Last Admin: 05/06/19 12:31 Dose: 1 units Documented by: Isosorbide Mononitrate (Imdur) 60 mg PO BID [facility] Last Admin: 05/06/19 09:56 Dose: 60 mg Documented by: Metolazone (Zaroxolyn) 5 mg PO [facility] Morphine Sulfate (Morphine) 2 mg IV Q4H PRN PRN Reason: Pain, Moderate (4-6) Nitroglycerin (Nitrostat) 0.4 mg SL Q5M PRN PRN Reason: Chest Pain Ondansetron HCl (Zofran) 4 mg IV Q8H PRN PRN Reason: Nausea And Vomiting Pantoprazole Sodium (Protonix) 40 mg PO QDAY [facility] Last Admin: 05/06/19 09:56 Dose: 40 mg Documented by: Ranolazine (Ranexa Er) 500 mg PO BID [facility] Last Admin: 05/06/19 09:56 Dose: 500 mg Documented by: Rivaroxaban (Xarelto) 20 mg PO QDAY [facility]; Protocol Last Admin: 05/06/19 09:56 Dose: 20 mg Documented by: Sodium Chloride (Sodium Chloride Flush Syringe 10 Ml) 10 ml IV BID [facility] Last Admin: 05/06/19 09:56 Dose: 10 ml Documented by: Sodium Chloride (Sodium Chloride Flush Syringe 10 Ml) 10 ml IV PRN PRN PRN Reason: LINE FLUSH Torsemide (Demadex) 40 mg PO DAILY [facility] Last Admin: 05/06/19 09:56 Dose: 40 mg Documented by: Review of Systems All systems: negative (see HPI) Exam - Constitutional Vitals: Temp Pulse Resp BP Pulse Ox 97.7 F 60 18 121/54 100 05/06/19 13:17 05/06/19 13:17 05/06/19 13:17 05/06/19 13:17 05/06/19 13:17 General appearance: Present: no acute distress - EENT Eyes: Present: EOM intact ENT: hearing intact - Respiratory Respiratory effort: normal - Extremities Extremities: normal temperature, normal color, abnormal (left lower extremity ulcerations on the calf) Extremity abnormal: edema (lymphedema of the lower extremities), pulses diminished (nonpalpable pedal pulses) - Psychiatric Psychiatric: appropriate mood/affect, cooperative Results - Labs CBC & Chem 7: 05/05/19 22:51 05/05/19 22:51 Labs: Abnormal lab results 05/05/19 05/05/19 05/05/19 Range/Units 22:51 22:51 22:51 Hgb 10.8 L (11.8-15.2) gm/dl Hct 33.0 L (35.5-45.6) % MCV 83 L (84-94) fl MCH 27 L (28-32) pg [place] % (Auto) 12.1 H (0.0-7.3) % [place] # 1.1 H (0.0-0.8) K/mm3 PT 19.7 H (12.2-14.9) Sec. INR 1.71 H (0.87-1.13) APTT 40.8 H (24.2-36.6) Sec. Creatinine 1.6 H (0.8-1.5) mg/dL Glucose 112 H (75-100) mg/dL POC Glucose (70-105) Hemoglobin A1c (4-6) % NT-Pro-B Natriuret Pep 2148 H (0-900) pg/mL Albumin 3.5 L (3.9-5) g/dL 05/06/19 05/06/19 05/06/19 Range/Units 04:40 05:40 12:35 Hgb (11.8-15.2) gm/dl Hct (35.5-45.6) % MCV (84-94) fl MCH (28-32) pg [place] % (Auto) (0.0-7.3) % [place] # (0.0-0.8) K/mm3 PT (12.2-14.9) Sec. INR (0.87-1.13) APTT (24.2-36.6) Sec. Creatinine (0.8-1.5) mg/dL Glucose (75-100) mg/dL POC Glucose 137 H 165 H (70-105) Hemoglobin A1c 6.9 H (4-6) % NT-Pro-B Natriuret Pep (0-900) pg/mL Albumin (3.9-5) g/dL Assessment and Plan 74-year-old male was admitted to the hospital for chest pain with underlying lymphedema and ulceration of the left lower extremity. Patient is being precertified for venous ablation/venous closure as an outpatient. Wound care consult for left lower extremity wound. Nonpalpable pedal pulses, but due to waxing and waning ulcer status, he likely has adequate perfusion to heal. Nonpalpable pulses could be secondary to lymphedema. Patient will follow up with us as an outpatient. No plans for any interventions while inpatient status.
--- NOTE | 2019-05-06 14:54 | Discharge Summary ---
Providers - Providers Date of Admission: 05/05/19 23:45 Date of discharge: 05/06/19 Attending physician: NICOLE CHAVEZ 05/06/19 00:36 Consult to Cardiology [CONS] Routine Consulting Provider: SARITHA PRASAD Reason For Exam: est pt, hx CHF, CAD, PPm c/o CP 05/06/19 13:27 Consult to Wound/ET Nurse [CONS] Routine Reason For Exam: LE wounds 05/06/19 14:51 Consult to Physician [CONS] Routine Reason For Exam: leg lymphedema Consulting Provider: DAVI MOORE Physician Instructions: Comment: [facility] Condition: Stable Hospital course: Patient is a 74-year-old -Thai man with history of coronary artery disease, OR s/p stent x3, PE & DVT on Xarelto, Paroxysmal A. fib, DM2, Gout, HTN, HLD, chronic lymphedema, arthritis, obesity, pacemaker in situ (10/2018) who presents to [facility] ED via EMS with complaints of midsternal chest pain that radiates to right side of chest for the past 6 hours. Troponin negative 1, and elevation in BNP at 2148. CXR for acute cardiopulmonary abnormalities. EKG did not show any acute ischemic abnormalities. Cardiology consulted, Dr. Prasad, patient's established [facility] at . Acute right side chest pains, msk, costochondritis no ACS Anemia chronic Elevated BNP Hypertension CAD s/p stent x3 Pacemaker in situ (11/16/18) Paroxysmal A. fib History of PE and DVT anticoagulated on Xarelto Chronic lymphedema Arthritis DM2 GERD Obesity CKD 3 Disposition: DC-01 TO HOME OR SELFCARE Time spent for discharge: 35 minutes Core Measure Documentation - Palliative Care Palliative Care/ Comfort Measures: Not Applicable - Core Measures Any of the following diagnoses?: none - VTE Discharge Requirements Deep Vein Thrombosis/Pulmonary Embolism Present on Admission: No Has pt received <5 days of overlap therapy or INR<2.0: No Anticoagulant overlap therapy prescribed at discharge: No Contraindication No Overlap Therapy order at DC: Not Indicated Exam - Physical Exam Narrative exam: Gen: WDWN, NAD, Awake, Alert, Orientated HEENT: NCAT, EOMI, PERRL, OP Clear Neck: supple, no adenopathy, no thyromegaly, no JVD CVS/Heart: RRR, normal S1S2, pulses present bilaterally Chest/Lungs: CTA B, Symmetrical chest expansion, good air entry bilaterally, reproducible right side neck upper clavicle/chest tenderness to touch GI/Abdomen: soft, NTND, good bowel sounds, no guarding or rebound /Bladder: no suprapubic tenderness, no CVA or paraspinal tenderness Extermity/Skin: no c/c/e, no obvious rash MSK: FROM x 4 Neuro: CN 2-12 grossly intact, no new focal deficits Psych: calm - Constitutional Vitals: Temp Pulse Resp BP Pulse Ox 97.7 F 60 18 121/54 100 05/06/19 13:17 05/06/19 13:17 05/06/19 13:17 05/06/19 13:17 05/06/19 13:17 Plan Activity: other (no strenous activity unless cleared PCP) Diet: low salt [facility] - 3-5 Days SARITHA PRASAD MD [Staff Physician] - 7 Days
[2019-05-07] MEDS ORDERED: BABY ASPIRIN PO SCH (10:00)
[2019-05-11] MEDS ORDERED: ZAROXOLYN PO SCH (10:00)
== END 2019-05-06 18:02 | disposition home or self-care (01) ==
LOC: ED 22:05 → 4A 23:45
PROVIDERS: ADMIT Internal Medicine; ATTEND Internal Medicine
DX: R07.89 Other chest pain (principal); D64.9 Anemia, unspecified; I25.10 Atherosclerotic heart disease of native coronary artery without angina pectoris; I48.0 Paroxysmal atrial fibrillation; M19.90 Unspecified osteoarthritis, unspecified site; K21.9 Gastro-esophageal reflux disease without esophagitis; E66.9 Obesity, unspecified; I89.0 Lymphedema, not elsewhere classified; I24.9 Acute ischemic heart disease, unspecified; I25.5 Ischemic cardiomyopathy; I26.99 Other pulmonary embolism without acute cor pulmonale; I13.0 Hypertensive heart and chronic kidney disease with heart failure and stage 1 through stage 4 chronic kidney disease, or unspecified chronic kidney disease; E11.22 Type 2 diabetes mellitus with diabetic chronic kidney disease; N18.3 Chronic kidney disease, stage 3 (moderate); I50.9 Heart failure, unspecified; R79.89 Other specified abnormal findings of blood chemistry; Z95.5 Presence of coronary angioplasty implant and graft; Z79.899 Other long term (current) drug therapy; Z86.73 Personal history of transient ischemic attack (TIA), and cerebral infarction without residual deficits
CPT/HCPCS: 36415; 71045; 80053; 82962; 83036; 83880; 84484; 85025; 85610; 85730; 93005; 93010; 96372; 96374; 99284; G0378; J1170

== ENCOUNTER 2019-09-02 11:53 | Outpatient (CLI) | payer MEDICARE ==
[2019-09-02 12:23] LABS: Hematocrit 34.3 % (35.5-45.6); Hemoglobin 10.9 gm/dl (11.8-15.2); Mean Corpuscular HGB Conc 32 % (32-34); Mean Corpuscular Volume 81 fl (84-94); Platelet Count 248 K/mm3 (140-440); Red Blood Count 4.25 M/mm3 (3.65-5.03); Red Cell Distribution Width 15.3 % (13.2-15.2)
[2019-09-02 12:44] LABS: Calcium 9.1 mg/dL (8.4-10.2); Chol/HDL Ratio 3.62 %
[2019-09-02 13:08] LABS: Microalbumin/Creatinine Ratio 7.4 ug/mg
[2019-09-05 14:06] LABS: Vitamin D, 25-OH, D2 <4 ng/mL
== END 2019-09-02 11:54 | disposition home or self-care (01) ==
LOC: LAB 11:53
PROVIDERS: ATTEND Hospitalist
DX: E78.5 Hyperlipidemia, unspecified (principal); R79.89 Other specified abnormal findings of blood chemistry; R53.83 Other fatigue; E03.2 Hypothyroidism due to medicaments and other exogenous substances; E11.65 Type 2 diabetes mellitus with hyperglycemia; R80.9 Proteinuria, unspecified; E55.9 Vitamin D deficiency, unspecified; I25.10 Atherosclerotic heart disease of native coronary artery without angina pectoris; I11.0 Hypertensive heart disease with heart failure; I50.9 Heart failure, unspecified; E11.9 Type 2 diabetes mellitus without complications; J44.9 Chronic obstructive pulmonary disease, unspecified; E78.00 Pure hypercholesterolemia, unspecified; E66.9 Obesity, unspecified; M19.90 Unspecified osteoarthritis, unspecified site
CPT/HCPCS: 36415; 80053; 80061; 82043; 82306; 83036; 84443; 85027

== ENCOUNTER 2019-11-01 13:44 | Outpatient (CLI) | payer MEDICARE ==
[2019-11-01 14:15] LABS: Hematocrit 33.6 % (35.5-45.6); Hemoglobin 10.8 gm/dl (11.8-15.2); Mean Corpuscular HGB Conc 32 % (32-34); Mean Corpuscular Volume 78 fl (84-94); Platelet Count 256 K/mm3 (140-440); Red Blood Count 4.29 M/mm3 (3.65-5.03); Red Cell Distribution Width 16.9 % (13.2-15.2)
[2019-11-01 14:27] LABS: Bilirubin,Urine NEG (Negative); Blood,Urine SM (Negative); Color,Urine Yellow (Yellow); Mucus,Urine FEW /HPF; Protein,Urine <15 mg/dL mg/dL (Negative); Urobilinogen,Urine < 2.0 mg/dL (<2.0)
[2019-11-01 14:29] LABS: Creatinine,Urine 149.3 mg/dL (0.1-20.0); Protein/Creatinine Ratio,Urine 0.12
[2019-11-01 14:38] LABS: Albumin 3.7 g/dL (3.9-5); BUN/Creatinine Ratio 16; Blood Urea Nitrogen 22 mg/dL (9-20); Calcium 9.5 mg/dL (8.4-10.2); Hemolysis Index 5
== END 2019-11-01 13:45 | disposition home or self-care (01) ==
LOC: LAB 13:44
PROVIDERS: ATTEND Internal Medicine Nephrology
DX: R94.4 Abnormal results of kidney function studies (principal)
CPT/HCPCS: 36415; 80048; 81001; 82040; 82570; 83970; 84100; 84156; 85027

== ENCOUNTER 2019-12-30 22:17 | Emergency (ER) | payer MEDICARE ==
--- NOTE | 2019-12-31 04:10 | Emergency Department Report ---
ED General Adult HPI - General Chief complaint: Medical Clearance Stated complaint: HALLUCINATION Time Seen by Provider: 12/31/19 03:39 Source: patient, family, EMS ( EMS documentation not available at time of chart dictation ), RN notes reviewed, old records reviewed Mode of arrival: Ambulatory Limitations: Physical Limitation - History of Present Illness Initial comments: The patient is a 74-year-old gentleman. The patient is not known to myself pr eviously. His private doctor is Dr. Daniels; his handle and vent machine operator is Dr. Kurtz He is past medical history includes heart disease, NM with stent, pulmonary embolism, DVT on Xarelto, paroxysmal A. fib, type 2 diabetes, gout, hypertension, high cholesterol, chronic lymphedema, arthritis, pacemaker in sit u, renal insufficiency He presents to the ER with his son-in-law with complaints of abnormal sensory perceptions after receiving influenza vaccination 3 to 4 days ago. He is concerned that he is having hallucinations, as he reports that while he is at home, he is seeing people which are not there. He denies headache, neck pain, chest pain, abdominal pain, new or different shortness of breath. He denies irritative and/or obstructive urinary symptoms. He is chronic bilateral lower extremity lymphedema pain. He endorses compliance with his outpatient medications. He further endorses that he does not believe his medications have been changed or adjusted. While in the emergency room, he has not experienced any of the aforementioned visual hallucinations. There is no complaint of homicidality or suicidality. -: Sudden Consistency: intermittent Improves with: none Worsens with: none - Related Data Home Medications Medication Instructions Recorded Confirmed Last Taken Rivaroxaban [Xarelto] 20 mg PO QDAY 10/10/16 12/31/19 05/05/19 10:00 20 mg Carvedilol [Coreg] 12.5 mg PO BID 09/01/17 12/31/19 05/05/19 17:00 Fish Oil/Borage/Flax/Om3,6,9 1 1,200 mg PO DAILY 09/01/17 12/31/19 05/05/19 10:00 [Flint 3-6-9 1,200 mg Softgel] ISOSORBIDE MONOnitrate [Imdur ER] 60 mg PO BID 09/01/17 12/31/19 05/05/19 17:00 Ipratropium/Albuterol Sulfate 1 puff IH Q8H PRN 09/01/17 12/31/19 05/05/19 09:00 [Combivent Respimat] Nitroglycerin [Nitrostat] 0.4 mg SL Q5M PRN 09/01/17 12/31/19 05/05/19 22:00 allopurinoL [Zyloprim] 100 mg PO BID 09/01/17 12/31/19 05/05/19 10:00 Previous Rx's Medication Instructions Recorded Last Taken Type AtorvaSTATin [Lipitor] 80 mg PO QDAY tablet 09/04/17 05/05/19 10:00 Rx Cholecalciferol Vit D3 [Vitamin D3 400 unit PO QDAY tablet 09/04/17 05/05/19 10:00 Rx 400 UNIT TAB] Colchicine [Colcrys] 0.6 mg PO QDAY tablet 09/04/17 05/05/19 10:00 Rx Torsemide [Demadex] 40 mg PO DAILY #30 tablet 09/04/17 05/05/19 10:00 Rx glipiZIDE [Glucotrol] 10 mg PO BID #60 tablet 09/04/17 05/05/19 17:00 Rx metOLazone [Zaroxolyn] 5 mg PO 1XW #4 tablet 09/04/17 05/05/19 10:00 Rx Pantoprazole [Protonix TAB] 40 mg PO QDAY #30 tablet 11/20/18 05/05/19 10:00 Rx Ranolazine ER [Ranexa ER] 500 mg PO BID #30 tablet 11/20/18 05/05/19 10:00 Rx Nitrofurantoin Perry/M-Cryst 100 mg PO Q12HR #14 capsule 12/31/19 Unknown Rx [Macrobid CAP] Allergies Allergy/AdvReac Type Severity Reaction Status Date / Time No Known Allergies Allergy Verified 04/28/15 18:04 ED Review of Systems ROS: Stated complaint: HALLUCINATION Other details as noted in HPI Constitutional: denies: fever Eyes: denies: eye discharge ENT: denies: congestion Respiratory: denies: wheezing Cardiovascular: edema (Chronic in the bilateral lower extremity). denies: syncope Gastrointestinal: denies: nausea, vomiting, hematemesis, melena, hematochezia Genitourinary: denies: dysuria Musculoskeletal: myalgia Neurological: denies: headache Psychiatric: visual hallucinations ED Past Medical Hx - Past Medical History Previous Medical History?: Yes Hx Hypertension: Yes Hx CVA: No Hx Heart Attack/AMI: Yes (4 stents) Hx Congestive Heart Failure: Yes (3L of oxgyen via NC) Hx Diabetes: No Hx Deep Vein Thrombosis: Yes (h/o) Hx Pulmonary Embolism: Yes Hx GERD: No Hx Liver Disease: No Hx Renal Disease: Yes (VANGIE) Hx Sickle Cell Disease: No Hx Arthritis: Yes Hx Headaches / Migraines: No Hx Seizures: No Hx Kidney Stones: No Hx Psychiatric Treatment: No Hx Asthma: No Hx COPD: No Hx Tuberculosis: No Hx Dementia: No Hx HIV: No Additional medical history: Cardiac Angioplasty/ stent placement x 4 in the RCA (most recent February 2013). CAD,AFIB,lymphadema. SLEEP APNEA,GOUT, HOME O2 2L - Surgical History Past Surgical History?: Yes Hx Coronary Stent: Yes Hx Open Heart Surgery: No Hx Pacemaker: No Hx Internal Defibrillator: No Hx Cholecystectomy: No Hx Appendectomy: No Hx Breast Surgery: No Additional Surgical History: pacemaker - Social History Smoking Status: Never Smoker Substance Use Type: None - Medications Home Medications: Home Medications Medication Instructions Recorded Confirmed Last Taken Type Rivaroxaban [Xarelto] 20 mg PO QDAY 10/10/16 12/31/19 05/05/19 10:00 History 20 mg Carvedilol [Coreg] 12.5 mg PO BID 09/01/17 12/31/19 05/05/19 17:00 History Fish Oil/Borage/Flax/Om3,6,9 1 1,200 mg PO DAILY 09/01/17 12/31/19 05/05/19 10:00 History [Flint 3-6-9 1,200 mg Softgel] ISOSORBIDE MONOnitrate [Imdur ER] 60 mg PO BID 09/01/17 12/31/19 05/05/19 17:00 History Ipratropium/Albuterol Sulfate 1 puff IH Q8H PRN 09/01/17 12/31/19 05/05/19 09:00 History [Combivent Respimat] Nitroglycerin [Nitrostat] 0.4 mg SL Q5M PRN 09/01/17 12/31/19 05/05/19 22:00 History allopurinoL [Zyloprim] 100 mg PO BID 09/01/17 12/31/19 05/05/19 10:00 History AtorvaSTATin [Lipitor] 80 mg PO QDAY tablet 09/04/17 12/31/19 05/05/19 10:00 Rx Cholecalciferol Vit D3 [Vitamin D3 400 unit PO QDAY tablet 09/04/17 12/31/19 05/05/19 10:00 Rx 400 UNIT TAB] Colchicine [Colcrys] 0.6 mg PO QDAY tablet 09/04/17 12/31/19 05/05/19 10:00 Rx Torsemide [Demadex] 40 mg PO DAILY #30 tablet 09/04/17 12/31/19 05/05/19 10:00 Rx glipiZIDE [Glucotrol] 10 mg PO BID #60 tablet 09/04/17 12/31/19 05/05/19 17:00 Rx metOLazone [Zaroxolyn] 5 mg PO 1XW #4 tablet 09/04/17 12/31/19 05/05/19 10:00 Rx Pantoprazole [Protonix TAB] 40 mg PO QDAY #30 tablet 11/20/18 12/31/19 05/05/19 10:00 Rx Ranolazine ER [Ranexa ER] 500 mg PO BID #30 tablet 11/20/18 12/31/19 05/05/19 10:00 Rx Nitrofurantoin Perry/M-Cryst 100 mg PO Q12HR #14 capsule 12/31/19 Unknown Rx [Macrobid CAP] ED Physical Exam - General Limitations: Physical Limitation General appearance: alert, in no apparent distress - Head Head exam: Present: atraumatic, normocephalic - Eye Eye exam: Present: normal appearance, EOMI, other (Visual acuity intact to finger counting and color perception at a close distance). Absent: nystagmus - ENT ENT exam: Present: normal exam, normal orophraynx, mucous membranes moist, normal external ear exam - Neck Neck exam: Present: normal inspection, full ROM. Absent: tenderness, meningismus - Respiratory Respiratory exam: Present: decreased breath sounds. Absent: respiratory distress - Cardiovascular Cardiovascular Exam: Present: normal rhythm, irregular rhythm. Absent: systolic murmur, diastolic murmur, rubs, gallop - GI/Abdominal GI/Abdominal exam: Present: soft. Absent: distended, tenderness, guarding, r ebound, rigid, pulsatile mass - Rectal Rectal exam: Present: deferred - Extremities Exam Extremities exam: Present: pedal edema, other (Chronic appearing lymphedema in the bilateral lower extremities. 2+ pulses noted in the bilateral upper and lower extremities. There is no palpable cord. negative Homans sign. Muscular compartments are soft. The pelvis is stable.). Absent: calf tenderness - Back Exam Back exam: Present: normal inspection, full ROM. Absent: tenderness, CVA tenderness (R), CVA tenderness (L), paraspinal tenderness, vertebral tenderness - Neurological Exam Neurological exam: Present: alert (The patient is alert to name, location, and is able to identify a son-in-law by name. He believes it is 2000.), other (Ther e is no facial droop. The tongue is midline. Extraocular movements are intact bilaterally. There is 5 out of 5 strength in bilateral upper and lower extremities. Sensation is intact to light touch bilateral upper and lower extremities. ) - Psychiatric Psychiatric exam: Present: normal affect, normal mood - Skin Skin exam: Present: warm, dry, intact, normal color. Absent: rash ED Course Vital Signs 12/30/19 12/31/19 23:15 05:55 Temperature 98.6 F Pulse Rate 81 100 H Respiratory 20 16 Rate Blood Pressure 125/105 Blood Pressure 166/99 [Right] O2 Sat by Pulse 100 100 Oximetry ED Medical Decision Making - Lab Data Result diagrams: 12/31/19 04:41 12/31/19 04:41 Vital Signs 12/30/19 12/31/19 23:15 05:55 Temperature 98.6 F Pulse Rate 81 100 H Respiratory 20 16 Rate Blood Pressure 125/105 Blood Pressure 166/99 [Right] O2 Sat by Pulse 100 100 Oximetry Lab Results 12/31/19 12/31/19 12/31/19 Range/Units 04:41 04:41 04:41 WBC 10.7 (4.5-11.0) K/mm3 RBC 4.42 (3.65-5.03) M/mm3 Hgb 11.3 L (11.8-15.2) gm/dl Hct 35.0 L (35.5-45.6) % MCV 79 L (84-94) fl MCH 26 L (28-32) pg MCHC 32 (32-34) % RDW 17.9 H (13.2-15.2) % Plt Count 213 (140-440) K/mm3 PT 16.2 H (12.2-14.9) Sec. INR 1.28 H (0.87-1.13) Sodium 140 (137-145) mmol/L Potassium 3.6 (3.6-5.0) mmol/L Chloride 102.8 (98-107) mmol/L Carbon Dioxide 20 L (22-30) mmol/L Anion Gap 21 mmol/L BUN 25 H (9-20) mg/dL Creatinine 1.3 (0.8-1.5) mg/dL Estimated GFR > 60 ml/min BUN/Creatinine Ratio 19 % Glucose 193 H (75-100) mg/dL Calcium 9.0 (8.4-10.2) mg/dL Magnesium 1.90 (1.7-2.3) mg/dL Total Bilirubin 0.60 (0.1-1.2) mg/dL AST 28 (5-40) units/L ALT 32 (7-56) units/L Alkaline Phosphatase 105 (35-129) units/L Ammonia (25-60) umol/L Total Creatine Kinase 234 H (55-170) units/L Total Protein 7.6 (6.3-8.2) g/dL Albumin 3.8 L (3.9-5) g/dL Albumin/Globulin Ratio 1.0 % TSH (0.270-4.200) mlU/mL Urine Color (Yellow) Urine Turbidity (Clear) Urine pH (5.0-7.0) Ur Specific [place] (1.003-1.030) Urine Protein (Negative) mg/dL Urine Glucose (UA) (Negative) mg/dL Urine Ketones (Negative) mg/dL Urine Blood (Negative) Urine Nitrite (Negative) Urine Bilirubin (Negative) Urine Urobilinogen (<2.0) mg/dL Ur Leukocyte Esterase (Negative) Urine WBC (Auto) (0.0-6.0) /HPF Urine RBC (Auto) (0.0-6.0) /HPF U Epithel Cells (Auto) (0-13.0) /HPF Urine Bacteria (Auto) (Negative) /HPF Hyaline Casts /LPF Urine Mucus /HPF Salicylates (2.8-20.0) mg/dL Acetaminophen (10.0-30.0) ug/mL Plasma/Serum Alcohol (0-0.07) % 12/31/19 12/31/19 12/31/19 Range/Units 04:41 04:41 04:41 WBC (4.5-11.0) K/mm3 RBC (3.65-5.03) M/mm3 Hgb (11.8-15.2) gm/dl Hct (35.5-45.6) % MCV (84-94) fl MCH (28-32) pg MCHC (32-34) % RDW (13.2-15.2) % Plt Count (140-440) K/mm3 PT (12.2-14.9) Sec. INR (0.87-1.13) Sodium (137-145) mmol/L Potassium (3.6-5.0) mmol/L Chloride (98-107) mmol/L Carbon Dioxide (22-30) mmol/L Anion Gap mmol/L BUN (9-20) mg/dL Creatinine (0.8-1.5) mg/dL Estimated GFR ml/min BUN/Creatinine Ratio % Glucose (75-100) mg/dL Calcium (8.4-10.2) mg/dL Magnesium (1.7-2.3) mg/dL Total Bilirubin (0.1-1.2) mg/dL AST (5-40) units/L ALT (7-56) units/L Alkaline Phosphatase (35-129) units/L Ammonia 31.0 (25-60) umol/L Total Creatine Kinase (55-170) units/L Total Protein (6.3-8.2) g/dL Albumin (3.9-5) g/dL Albumin/Globulin Ratio % TSH 1.080 (0.270-4.200) mlU/mL Urine Color (Yellow) Urine Turbidity (Clear) Urine pH (5.0-7.0) Ur Specific [place] (1.003-1.030) Urine Protein (Negative) mg/dL Urine Glucose (UA) (Negative) mg/dL Urine Ketones (Negative) mg/dL Urine Blood (Negative) Urine Nitrite (Negative) Urine Bilirubin (Negative) Urine Urobilinogen (<2.0) mg/dL Ur Leukocyte Esterase (Negative) Urine WBC (Auto) (0.0-6.0) /HPF Urine RBC (Auto) (0.0-6.0) /HPF U Epithel Cells (Auto) (0-13.0) /HPF Urine Bacteria (Auto) (Negative) /HPF Hyaline Casts /LPF Urine Mucus /HPF Salicylates < 0.3 L (2.8-20.0) mg/dL Acetaminophen (10.0-30.0) ug/mL Plasma/Serum Alcohol (0-0.07) % 12/31/19 12/31/19 12/31/19 Range/Units 04:41 04:41 Unknown WBC (4.5-11.0) K/mm3 RBC (3.65-5.03) M/mm3 Hgb (11.8-15.2) gm/dl Hct (35.5-45.6) % MCV (84-94) fl MCH (28-32) pg MCHC (32-34) % RDW (13.2-15.2) % Plt Count (140-440) K/mm3 PT (12.2-14.9) Sec. INR (0.87-1.13) Sodium (137-145) mmol/L Potassium (3.6-5.0) mmol/L Chloride (98-107) mmol/L Carbon Dioxide (22-30) mmol/L Anion Gap mmol/L BUN (9-20) mg/dL Creatinine (0.8-1.5) mg/dL Estimated GFR ml/min BUN/Creatinine Ratio % Glucose (75-100) mg/dL Calcium (8.4-10.2) mg/dL Magnesium (1.7-2.3) mg/dL Total Bilirubin (0.1-1.2) mg/dL AST (5-40) units/L ALT (7-56) units/L Alkaline Phosphatase (35-129) units/L Ammonia (25-60) umol/L Total Creatine Kinase (55-170) units/L Total Protein (6.3-8.2) g/dL Albumin (3.9-5) g/dL Albumin/Globulin Ratio % TSH (0.270-4.200) mlU/mL Urine Color Yellow (Yellow) Urine Turbidity Clear (Clear) Urine pH 5.0 (5.0-7.0) Ur Specific [place] 1.018 (1.003-1.030) Urine Protein 30 mg/dl (Negative) mg/dL Urine Glucose (UA) Neg (Negative) mg/dL Urine Ketones Neg (Negative) mg/dL Urine Blood Sm (Negative) Urine Nitrite Neg (Negative) Urine Bilirubin Neg (Negative) Urine Urobilinogen 2.0 (<2.0) mg/dL Ur Leukocyte Esterase Tr (Negative) Urine WBC (Auto) 11.0 H (0.0-6.0) /HPF Urine RBC (Auto) 6.0 (0.0-6.0) /HPF U Epithel Cells (Auto) 2.0 (0-13.0) /HPF Urine Bacteria (Auto) 1+ (Negative) /HPF Hyaline Casts 3 /LPF Urine Mucus Few /HPF Salicylates (2.8-20.0) mg/dL Acetaminophen < 5.0 L (10.0-30.0) ug/mL Plasma/Serum Alcohol < 0.01 (0-0.07) % - EKG Data -: EKG Interpreted by Pr - EKG Data 12/31/19 06:19 The EKG today shows atrial fibrillation, left axis deviation, left bundle branch block, poor R wave progression, QTC prolonged, the EKG is abnormal, it is not consistent with STEMI, appears to be grossly unchanged from prior EKG from 04/2019 - Radiology Data Radiology results: report reviewed, image reviewed Print Report Referring Physician: JEREMIE AKBAR Patient Name: CHANDU MCARTHUR Date of : 1945 Sex: Male Report Date: 2019-12-31 Report Status: Finalized Findings [facility] [address] [place] [address] Cat Scan Report Signed Patient: CHANDU MCARTHUR MR#: [id number] 2 : 1945 Acct:[id number] Age/Sex: 74 / M ADM Date: 12/30/19 Loc: ED Attending Dr: Ordering Physician: JEREMIE AKBAR MD Date of Service: 12/31/19 Procedure(s): CT head/brain wo con Accession Number(s): [id number] cc: JEREMIE AKBAR MD CT HEAD WITHOUT CONTRAST INDICATION : hallucinations, on blood thinners. TECHNIQUE: Axial, coronal and sagittal CT imaging was performed from the skull apex through the skull base without contrast. All CT scans at this location are performed using CT dose reduction for ALARA by means of automated exposure control. COMPARISON: CT head without contrast from 10/10/2016. FINDINGS: PARENCHYMA: No mass, midline shift, hemorrhage, extraaxial collection or acute territorial infarction. Age-appropriate atrophy is seen with probable chronic microvascular ischemic changes along the periventricular white matter. VENTRICLES: Symmetric and normal in size. SOFT TISSUES: No significant abnormality of the included so ft tissues/orbits. BONES: No acute osseous abnormality. SINUSES: No significant abnormality. ADDITIONAL FINDINGS: There is mild calcification of the anterior circulation. IMPRESSION: 1. No acute intracranial abnormality. 2. Additional findings as above. Signer Name: Terrance Boyer MD Signed: 12/31/2019 4:52 AM Workstation Name: [id number] Transcribed By: MN Dictated By: Terrance Boyer MD Electronically Authenticated By: Terrance Boyer MD Signed Date/Time: 12/31/19 0452 - Medical Decision Making Differential diagnosis, including not limited to: Intracranial lesion, urinary tract infection, electrolyte derangement, thyroid derangement, dementia, vaccination side effects Assessment and plan: 74-year-old gentleman with a complaint of possible hallucinations after receiving influenza vaccination, having visual hallucinations while at home. He is afebrile with reassuring vital signs, with a nonfocal motor and neurologic examination. Family at the bedside corroborates that patient is at his mental status baseline. He is pleasant, calm and cooperative, and he is not homicidal or suicidal. He is alert to name and location, but does not know the year. His physical examination is otherwise unremarkable. Screening laboratory studies have not demonstrated any emergent toxicologic or metabolic abnormality that would require emergent intervention. Noncontrast CT scan of the brain is unremarkable, EKG unchanged from prior, urinalysis is reviewed and appreciated. The patient does not appear to have an emergent medical condition present after appropriate diagnostic testing has been ordered. He will be started empirically on Mac robid, he can follow-up with his outpatient primary care doctor, return precautions are reviewed. He can also follow-up with an outpatient geriatric psychiatrist, if he so desires. Critical care attestation.: If time is entered above; I have spent that time in minutes in the direct care of this critically ill patient, excluding procedure time. ED Disposition Clinical Impression: History of hallucinations Disposition: DC-01 TO HOME OR SELFCARE Is pt being admited?: No Does the pt Need Aspirin: No Condition: Stable Additional Instructions: Avoid consumption of alcohol, and sedating medications and substances. Recommend follow-up with an outpatient primary care doctor, or geriatric psychiatrist, within the next 7 days. Continue current outpatient medications, take antibiotics as directed, please return to the emergency room right away with new, worsened or different symptoms, or symptoms not present on the initial emergency room evaluation. For the time being, recommend that patient not d rive, operate motor vehicles Referrals: BIANCA DANIELS MD [Primary Care Provider] - 3-5 Days
--- NOTE | 2019-12-31 04:56 | Cat Scan Report ---
CT HEAD WITHOUT CONTRAST INDICATION : hallucinations, on blood thinners. TECHNIQUE: Axial, coronal and sagittal CT imaging was performed from the skull apex through the skul l base without contrast. All CT scans at this location are performed using CT dose reduction for ALA RA by means of automated exposure control. COMPARISON: CT head without contrast from 10/10/2016. FINDINGS: PARENCHYMA: No mass, midline shift, hemorrhage, extraaxial collection or acute territorial infarctio n. Age-appropriate atrophy is seen with probable chronic microvascular ischemic changes along the pe riventricular white matter. VENTRICLES: Symmetric and normal in size. SOFT TISSUES: No significant abnormality of the included soft tissues/orbits. BONES: No acute osseous abnormality. SINUSES: No significant abnormality. ADDITIONAL FINDINGS: There is mild calcification of the anterior circulation. IMPRESSION: 1. No acute intracranial abnormality. 2. Additional findings as above. Signer Name: Terrance Boyer MD Signed: 12/31/2019 4:52 AM Workstation Name: [id number]
[2019-12-31 05:21] LABS: Hemoglobin 11.3 gm/dl (11.8-15.2); Mean Corpuscular HGB Conc 32 % (32-34); Mean Corpuscular Volume 79 fl (84-94); Platelet Count 213 K/mm3 (140-440); Red Blood Count 4.42 M/mm3 (3.65-5.03); Red Cell Distribution Width 17.9 % (13.2-15.2)
[2019-12-31 05:29] LABS: Bacteria,Urine 1+ /HPF (Negative); Bilirubin,Urine NEG (Negative); Blood,Urine SM (Negative); Color,Urine Yellow (Yellow); Hyaline Casts,Urine 3 /LPF; Mucus,Urine FEW /HPF
[2019-12-31 05:32] LABS: INR 1.28 (0.87-1.13)
[2019-12-31 05:41] LABS: Alanine Aminotransferase 32 units/L (7-56); Albumin 3.8 g/dL (3.9-5); BUN/Creatinine Ratio 19; Blood Urea Nitrogen 25 mg/dL (9-20); Hemolysis Index 1
[2019-12-31 05:55] VITALS: BP 166/99
== END 2019-12-31 07:14 | disposition home or self-care (01) ==
LOC: ED 22:17
DX: R44.1 Visual hallucinations (principal); I25.2 Old myocardial infarction; M19.90 Unspecified osteoarthritis, unspecified site; R60.9 Edema, unspecified; I11.0 Hypertensive heart disease with heart failure; I50.9 Heart failure, unspecified; M79.18 Myalgia, other site
CPT/HCPCS: 36415; 70450; 80053; 80320; 81001; 82140; 82550; 83735; 84443; 85027; 85610; 87086; 93005; 93010; G0480

== ENCOUNTER 2020-07-04 13:37 | Outpatient (CLI) | payer MEDICARE ==
[2020-07-04 14:39] LABS: Albumin 3.9 g/dL (3.9-5); BUN/Creatinine Ratio 16; Blood Urea Nitrogen 23 mg/dL (9-20); Calcium 9.6 mg/dL (8.4-10.2); Hemolysis Index 16
[2020-07-04 14:41] LABS: Bilirubin,Urine NEG (Negative); Blood,Urine SM (Negative); Color,Urine Yellow (Yellow); Protein,Urine <15 mg/dL mg/dL (Negative); Urobilinogen,Urine < 2.0 mg/dL (<2.0)
[2020-07-04 14:44] LABS: Hemoglobin 11.6 gm/dl (11.8-15.2)
[2020-07-04 15:05] LABS: Creatinine,Urine 112.6 mg/dL (0.1-20.0); Protein/Creatinine Ratio,Urine 0.12
== END 2020-07-04 13:38 | disposition home or self-care (01) ==
LOC: LAB 13:37
PROVIDERS: ATTEND Internal Medicine Nephrology
DX: I12.9 Hypertensive chronic kidney disease with stage 1 through stage 4 chronic kidney disease, or unspecified chronic kidney disease (principal); E11.22 Type 2 diabetes mellitus with diabetic chronic kidney disease; N18.2 Chronic kidney disease, stage 2 (mild); M10.9 Gout, unspecified; E66.9 Obesity, unspecified; G47.30 Sleep apnea, unspecified; D64.9 Anemia, unspecified; R50.9 Fever, unspecified; N39.41 Urge incontinence
CPT/HCPCS: 36415; 80048; 81001; 82040; 82570; 84100; 84156; 85014; 85018; 87086

== ENCOUNTER 2020-07-11 14:34 | Emergency (ER) | payer MEDICARE ==
[2020-07-11 14:57] VITALS: BP 151/76
--- NOTE | 2020-07-11 15:27 | Event Note ---
ED Screening Note Date of service: 07/11/20 Time: 15:26 ED Screening Note: Patient presents with bilateral leg edema and and a large bullous lesion to the right posterior calf. Patient is a history of lymphedema and reports flaring up. On exam there is a 7 cm bullous lesion to the right posterior calf with erythema and edema bilaterally. This initial assessment/diagnostic orders/clinical plan/treatment(s) is/are subject to change based on patients health status, clinical progression and re- assessment by fellow clinical providers in the ED. Further treatment and workup at subsequent clinical providers discretion. Patient/guardian urged not to elope from the ED as their condition may be serious if not clinically assessed and managed. Initial orders include: CBC, CMP, lactic acid, blood cultures, ultrasound
--- NOTE | 2020-07-11 16:59 | Emergency Department Report ---
ED General Adult HPI - General Chief complaint: Extremity Injury, Lower Stated complaint: BLISTER ON LEG Time Seen by Provider: 07/11/20 16:48 Source: patient Mode of arrival: Ambulatory Limitations: No Limitations - History of Present Illness Initial comments: Patient is 75 years old male with history of congestive heart failure, hypertension, DVT and pulmonary edema and recent diagnosis of lymphedema also. Patient presented to the ER complaining of bilateral lower extremity swelling and also a 7 cm blister to the right leg for the last 2 to 3 days. Patient denied any chest pain or shortness of breath. No fever or chills. Patient stated that he has been using a new machine that helps with pressure on the legs to help with the lymphedema. - Related Data Home Medications Medication Instructions Recorded Confirmed Last Taken Rivaroxaban [Xarelto] 20 mg PO QDAY 10/10/16 12/31/19 05/05/19 10:00 20 mg Carvedilol [Coreg] 12.5 mg PO BID 09/01/17 12/31/19 05/05/19 17:00 Fish Oil/Borage/Flax/Om3,6,9 1 1,200 mg PO DAILY 09/01/17 12/31/19 05/05/19 10:00 [[place] 3-6-9 1,200 mg Softgel] ISOSORBIDE MONOnitrate [Imdur ER] 60 mg PO BID 09/01/17 12/31/19 05/05/19 17:00 Ipratropium/Albuterol Sulfate 1 puff IH Q8H PRN 09/01/17 12/31/19 05/05/19 09:00 [Combivent Respimat] Nitroglycerin [Nitrostat] 0.4 mg SL Q5M PRN 09/01/17 12/31/19 05/05/19 22:00 allopurinoL [Zyloprim] 100 mg PO BID 09/01/17 12/31/19 05/05/19 10:00 Previous Rx's Medication Instructions Recorded Last Taken Type AtorvaSTATin [Lipitor] 80 mg PO QDAY tablet 09/04/17 05/05/19 10:00 Rx Cholecalciferol Vit D3 [Vitamin D3 400 unit PO QDAY tablet 09/04/17 05/05/19 10:00 Rx 400 UNIT TAB] Colchicine [Colcrys] 0.6 mg PO QDAY tablet 09/04/17 05/05/19 10:00 Rx Torsemide [Demadex] 40 mg PO DAILY #30 tablet 09/04/17 05/05/19 10:00 Rx glipiZIDE [Glucotrol] 10 mg PO BID #60 tablet 09/04/17 05/05/19 17:00 Rx metOLazone [Zaroxolyn] 5 mg PO 1XW #4 tablet 09/04/17 05/05/19 10:00 Rx Pantoprazole [Protonix TAB] 40 mg PO QDAY #30 tablet 11/20/18 05/05/19 10:00 Rx Ranolazine ER [Ranexa ER] 500 mg PO BID #30 tablet 11/20/18 05/05/19 10:00 Rx Nitrofurantoin [place]/M-Cryst 100 mg PO Q12HR #14 capsule 12/31/19 Unknown Rx [Macrobid CAP] Allergies Allergy/AdvReac Type Severity Reaction Status Date / Time No Known Allergies Allergy Verified 04/28/15 18:04 ED Review of Systems ROS: Stated complaint: BLISTER ON LEG Other details as noted in HPI Comment: All other systems reviewed and negative Constitutional: denies: chills, fever Respiratory: denies: cough, shortness of breath Cardiovascular: denies: chest pain, palpitations Gastrointestinal: denies: abdominal pain, nausea, vomiting Musculoskeletal: denies: back pain Neurological: denies: headache, weakness, numbness, paresthesias, confusion ED Past Medical Hx - Past Medical History Hx Hypertension: Yes Hx CVA: No Hx Heart Attack/AMI: Yes (4 stents) Hx Congestive Heart Failure: Yes (3L of oxgyen via NC) Hx Diabetes: No Hx Deep Vein Thrombosis: Yes (h/o) Hx Pulmonary Embolism: Yes Hx GERD: No Hx Liver Disease: No Hx Renal Disease: Yes (VANGIE) Hx Sickle Cell Disease: No Hx Arthritis: Yes Hx Headaches / Migraines: No Hx Seizures: No Hx Kidney Stones: No Hx Psychiatric Treatment: No Hx Asthma: No Hx COPD: No Hx Tuberculosis: No Hx Dementia: No Hx HIV: No Additional medical history: Cardiac Angioplasty/ stent placement x 4 in the RCA (most recent February 2013). CAD,AFIB,lymphadema. SLEEP APNEA,GOUT, HOME O2 2L - Surgical History Hx Coronary Stent: Yes Hx Open Heart Surgery: No Hx Pacemaker: No Hx Internal Defibrillator: No Hx Cholecystectomy: No Hx Appendectomy: No Hx Breast Surgery: No Additional Surgical History: pacemaker - Social History Smoking Status: Never Smoker - Medications Home Medications: Home Medications Medication Instructions Recorded Confirmed Last Taken Type Rivaroxaban [Xarelto] 20 mg PO QDAY 10/10/16 12/31/19 05/05/19 10:00 History 20 mg Carvedilol [Coreg] 12.5 mg PO BID 09/01/17 12/31/19 05/05/19 17:00 History Fish Oil/Borage/Flax/Om3,6,9 1 1,200 mg PO DAILY 09/01/17 12/31/19 05/05/19 10:00 History [[place] 3-6-9 1,200 mg Softgel] ISOSORBIDE MONOnitrate [Imdur ER] 60 mg PO BID 09/01/17 12/31/19 05/05/19 17:00 History Ipratropium/Albuterol Sulfate 1 puff IH Q8H PRN 09/01/17 12/31/19 05/05/19 09:00 History [Combivent Respimat] Nitroglycerin [Nitrostat] 0.4 mg SL Q5M PRN 09/01/17 12/31/19 05/05/19 22:00 History allopurinoL [Zyloprim] 100 mg PO BID 09/01/17 12/31/19 05/05/19 10:00 History AtorvaSTATin [Lipitor] 80 mg PO QDAY tablet 09/04/17 12/31/19 05/05/19 10:00 Rx Cholecalciferol Vit D3 [Vitamin D3 400 unit PO QDAY tablet 09/04/17 12/31/19 05/05/19 10:00 Rx 400 UNIT TAB] Colchicine [Colcrys] 0.6 mg PO QDAY tablet 09/04/17 12/31/19 05/05/19 10:00 Rx Torsemide [Demadex] 40 mg PO DAILY #30 tablet 09/04/17 12/31/19 05/05/19 10:00 Rx glipiZIDE [Glucotrol] 10 mg PO BID #60 tablet 09/04/17 12/31/19 05/05/19 17:00 Rx metOLazone [Zaroxolyn] 5 mg PO 1XW #4 tablet 09/04/17 12/31/19 05/05/19 10:00 Rx Pantoprazole [Protonix TAB] 40 mg PO QDAY #30 tablet 11/20/18 12/31/19 05/05/19 10:00 Rx Ranolazine ER [Ranexa ER] 500 mg PO BID #30 tablet 11/20/18 12/31/19 05/05/19 10:00 Rx Nitrofurantoin [place]/M-Cryst 100 mg PO Q12HR #14 capsule 12/31/19 Unknown Rx [Macrobid CAP] ED Physical Exam - General Limitations: No Limitations General appearance: alert, in no apparent distress - Head Head exam: Present: atraumatic, normocephalic, normal inspection - Eye Eye exam: Present: normal appearance - ENT ENT exam: Present: normal exam, normal orophraynx, mucous membranes moist - Neck Neck exam: Present: normal inspection, full ROM. Absent: tenderness, meningismus - Respiratory Respiratory exam: Present: normal lung sounds bilaterally - Cardiovascular Cardiovascular Exam: Present: regular rate, normal rhythm, normal heart sounds - GI/Abdominal GI/Abdominal exam: Present: soft, normal bowel sounds. Absent: distended, tenderness, guarding, rebound, rigid, organomegaly, mass, bruit, pulsatile mass, hernia - Extremities Exam Extremities exam: Present: normal capillary refill, pedal edema (4+), other (7 cm blisters to the right leg with clear liquid.). Absent: calf tenderness - Back Exam Back exam: Absent: CVA tenderness (R), CVA tenderness (L) - Neurological Exam Neurological exam: Present: alert, oriented X3, CN II-XII intact - Psychiatric Psychiatric exam: Present: normal mood - Skin Skin exam: Present: warm, intact, normal color ED Course Vital Signs 07/11/20 14:54 Temperature 97.9 F Pulse Rate 96 H Respiratory 18 Rate Blood Pressure 151/76 O2 Sat by Pulse 97 Oximetry ED Medical Decision Making - Lab Data Result diagrams: 07/11/20 16:53 07/11/20 16:53 - Medical Decision Making Patient is 75 years old male with history of congestive heart failure, hypertension, DVT and pulmonary edema and recent diagnosis of lymphedema also. Patient presented to the ER complaining of bilateral lower extremity swelling and also a 7 cm blister to the right leg for the last 2 to 3 days. Patient denied any chest pain or shortness of breath. No fever or chills. Patient stated that he has been using a new machine that helps with pressure on the legs to help with the lymphedema. Labs reviewed and is unremarkable. Patient with significant lymphedema however this is chronic. Advised patient to stop using the new device that he has because is causing his current blisters. Patient given prescription for Keflex and advised to follow-up with his primary doctor. I also advised him to increase his Lasix to 20 mg twice a day to help with the swelling. Patient advised to return to the ER if he develop any new symptoms. Critical care attestation.: If time is entered above; I have spent that time in minutes in the direct care of this critically ill patient, excluding procedure time. ED Disposition Clinical Impression: Lymphedema, Blister Disposition: DC-01 TO HOME OR SELFCARE Is pt being admited?: No Condition: Stable Instructions: Lymphedema (ED), Blister (ED) Referrals: PRIMARY CARE, [Primary Care Provider] - 3-5 Days
[2020-07-11 17:09] LABS: Basophils % (Auto) 0.6 % (0.0-1.8); Eosinophils # (Auto) 0.1 K/mm3 (0.0-0.4); Eosinophils % (Auto) 1.9 % (0.0-4.3); Hematocrit 35.4 % (35.5-45.6); Hemoglobin 11.3 gm/dl (11.8-15.2); Mean Corpuscular HGB Conc 32 % (32-34); Mean Corpuscular Volume 84 fl (84-94); Monocytes # (Auto) 0.7 K/mm3 (0.0-0.8); Monocytes % (Auto) 9.1 % (0.0-7.3); Platelet Count 158 K/mm3 (140-440); Red Blood Count 4.19 M/mm3 (3.65-5.03); Red Cell Distribution Width 18.1 % (13.2-15.2)
[2020-07-11 17:38] LABS: Alanine Aminotransferase 19 units/L (7-56); Albumin 4.2 g/dL (3.9-5); BUN/Creatinine Ratio 13; Blood Urea Nitrogen 18 mg/dL (9-20)
[2020-07-11 17:48] LABS: Calcium 9.5 mg/dL (8.4-10.2); Hemolysis Index 10
== END 2020-07-11 19:14 | disposition home or self-care (01) ==
LOC: ED 14:34
DX: S80.822A Blister (nonthermal), left lower leg, initial encounter (principal); S80.821A Blister (nonthermal), right lower leg, initial encounter; I89.0 Lymphedema, not elsewhere classified; I11.0 Hypertensive heart disease with heart failure; I50.9 Heart failure, unspecified; I25.2 Old myocardial infarction; E11.9 Type 2 diabetes mellitus without complications; M19.90 Unspecified osteoarthritis, unspecified site; I82.402 Acute embolism and thrombosis of unspecified deep veins of left lower extremity; I82.90 Acute embolism and thrombosis of unspecified vein; Z79.899 Other long term (current) drug therapy; X58.XXXA Exposure to other specified factors, initial encounter; Y93.89 Activity, other specified; Y92.89 Other specified places as the place of occurrence of the external cause; Y99.8 Other external cause status
CPT/HCPCS: 36415; 80053; 85025; 86140; 99283

== ENCOUNTER 2021-01-11 11:32 | Observation (INO) | payer MEDICARE ==
--- NOTE | 2021-01-11 11:49 | Emergency Department Report ---
ED General Adult HPI - General Chief complaint: Chest Pain Stated complaint: CHEST PAIN Time Seen by Provider: 01/11/21 11:48 Source: patient, EMS Mode of arrival: Stretcher Limitations: No Limitations - History of Present Illness Initial comments: Patient is a 74-year-old male presents emergency department for evaluation of lightheadedness which occurred after getting out of the shower this morning. Patient notes lightheadedness began to resolve, at which point patient noticed he had mild but constant central chest pressure. denies pleuritic component, denies fever, denies cough, denies shortness of breath. - Related Data Home Medications Medication Instructions Recorded Confirmed Last Taken Rivaroxaban [Xarelto] 20 mg PO QDAY 10/10/16 12/31/19 05/05/19 10:00 20 mg Carvedilol [Coreg] 12.5 mg PO BID 09/01/17 12/31/19 05/05/19 17:00 Fish Oil/Borage/Flax/Om3,6,9 1 1,200 mg PO DAILY 09/01/17 12/31/19 05/05/19 10:00 [[place] 3-6-9 1,200 mg Softgel] ISOSORBIDE MONOnitrate [Imdur ER] 60 mg PO BID 09/01/17 12/31/19 05/05/19 17:00 Ipratropium/Albuterol Sulfate 1 puff IH Q8H PRN 09/01/17 12/31/19 05/05/19 09:00 [Combivent Respimat] Nitroglycerin [Nitrostat] 0.4 mg SL Q5M PRN 09/01/17 12/31/19 05/05/19 22:00 allopurinoL [Zyloprim] 100 mg PO BID 09/01/17 12/31/19 05/05/19 10:00 Previous Rx's Medication Instructions Recorded Last Taken Type AtorvaSTATin [Lipitor] 80 mg PO QDAY tablet 09/04/17 05/05/19 10:00 Rx Cholecalciferol Vit D3 [Vitamin D3 400 unit PO QDAY tablet 09/04/17 05/05/19 10:00 Rx 400 UNIT TAB] Colchicine [Colcrys] 0.6 mg PO QDAY tablet 09/04/17 05/05/19 10:00 Rx Torsemide [Demadex] 40 mg PO DAILY #30 tablet 09/04/17 05/05/19 10:00 Rx glipiZIDE [Glucotrol] 10 mg PO BID #60 tablet 09/04/17 05/05/19 17:00 Rx metOLazone [Zaroxolyn] 5 mg PO 1XW #4 tablet 09/04/17 05/05/19 10:00 Rx Pantoprazole [Protonix TAB] 40 mg PO QDAY #30 tablet 11/20/18 05/05/19 10:00 Rx Ranolazine ER [Ranexa ER] 500 mg PO BID #30 tablet 11/20/18 05/05/19 10:00 Rx Nitrofurantoin [place]/M-Cryst 100 mg PO Q12HR #14 capsule 12/31/19 Unknown Rx [Macrobid CAP] cephALEXin [Keflex] 500 mg PO Q8HR #28 cap 07/11/20 Unknown Rx Allergies Allergy/AdvReac Type Severity Reaction Status Date / Time No Known Allergies Allergy Verified 04/28/15 18:04 ED Review of Systems ROS: Stated complaint: CHEST PAIN Other details as noted in HPI Comment: All other systems reviewed and negative ED Past Medical Hx - Past Medical History Previous Medical History?: Yes Hx Hypertension: Yes Hx CVA: No Hx Heart Attack/AMI: Yes (4 stents) Hx Congestive Heart Failure: Yes (3L of oxgyen via NC) Hx Diabetes: No Hx Deep Vein Thrombosis: Yes (h/o) Hx Pulmonary Embolism: Yes Hx GERD: No Hx Liver Disease: No Hx Renal Disease: Yes (VANGIE) Hx Sickle Cell Disease: No Hx Arthritis: Yes Hx Headaches / Migraines: No Hx Seizures: No Hx Kidney Stones: No Hx Psychiatric Treatment: No Hx Asthma: No Hx COPD: No Hx Tuberculosis: No Hx Dementia: No Hx HIV: No Additional medical history: Cardiac Angioplasty/ stent placement x 4 in the RCA (most recent February 2013). CAD,AFIB,lymphadema. SLEEP APNEA,GOUT, HOME O2 2L - Surgical History Past Surgical History?: Yes Hx Coronary Stent: Yes Hx Open Heart Surgery: No Hx Pacemaker: No Hx Internal Defibrillator: No Hx Cholecystectomy: No Hx Appendectomy: No Hx Breast Surgery: No Additional Surgical History: pacemaker - Social History Smoking Status: Never Smoker Substance Use Type: None - Medications Home Medications: Home Medications Medication Instructions Recorded Confirmed Last Taken Type Rivaroxaban [Xarelto] 20 mg PO QDAY 10/10/16 12/31/19 05/05/19 10:00 History 20 mg Carvedilol [Coreg] 12.5 mg PO BID 09/01/17 12/31/19 05/05/19 17:00 History Fish Oil/Borage/Flax/Om3,6,9 1 1,200 mg PO DAILY 09/01/17 12/31/19 05/05/19 10:00 History [[place] 3-6-9 1,200 mg Softgel] ISOSORBIDE MONOnitrate [Imdur ER] 60 mg PO BID 09/01/17 12/31/19 05/05/19 17:00 History Ipratropium/Albuterol Sulfate 1 puff IH Q8H PRN 09/01/17 12/31/19 05/05/19 09:00 History [Combivent Respimat] Nitroglycerin [Nitrostat] 0.4 mg SL Q5M PRN 09/01/17 12/31/19 05/05/19 22:00 History allopurinoL [Zyloprim] 100 mg PO BID 09/01/17 12/31/19 05/05/19 10:00 History AtorvaSTATin [Lipitor] 80 mg PO QDAY tablet 09/04/17 12/31/19 05/05/19 10:00 Rx Cholecalciferol Vit D3 [Vitamin D3 400 unit PO QDAY tablet 09/04/17 12/31/19 05/05/19 10:00 Rx 400 UNIT TAB] Colchicine [Colcrys] 0.6 mg PO QDAY tablet 09/04/17 12/31/19 05/05/19 10:00 Rx Torsemide [Demadex] 40 mg PO DAILY #30 tablet 09/04/17 12/31/19 05/05/19 10:00 Rx glipiZIDE [Glucotrol] 10 mg PO BID #60 tablet 09/04/17 12/31/19 05/05/19 17:00 Rx metOLazone [Zaroxolyn] 5 mg PO 1XW #4 tablet 09/04/17 12/31/19 05/05/19 10:00 Rx Pantoprazole [Protonix TAB] 40 mg PO QDAY #30 tablet 11/20/18 12/31/1905/05/19 10:00 Rx Ranolazine ER [Ranexa ER] 500 mg PO BID #30 tablet 11/20/18 12/31/19 05/05/19 10:00 Rx Nitrofurantoin [place]/M-Cryst 100 mg PO Q12HR #14 capsule 12/31/19 Unknown Rx [Macrobid CAP] cephALEXin [Keflex] 500 mg PO Q8HR #28 cap 07/11/20 Unknown Rx ED Physical Exam - General Limitations: No Limitations General appearance: alert, in no apparent distress - Head Head exam: Present: atraumatic, normocephalic - Eye Eye exam: Present: normal appearance - ENT ENT exam: Present: mucous membranes moist - Neck Neck exam: Present: normal inspection - Respiratory Respiratory exam: Present: normal lung sounds bilaterally. Absent: respiratory distress - Cardiovascular Cardiovascular Exam: Present: regular rate, normal rhythm - GI/Abdominal GI/Abdominal exam: Present: soft, normal bowel sounds - Rectal Rectal exam: Present: deferred - Extremities Exam Extremities exam: Present: normal inspection - Back Exam Back exam: Present: normal inspection - Neurological Exam Neurological exam: Present: alert, oriented X3 - Psychiatric Psychiatric exam: Present: normal affect, normal mood - Skin Skin exam: Present: warm, dry, intact, normal color. Absent: rash ED Course Vital Signs 01/11/21 01/11/21 01/11/21 11:46 11:48 12:00 Temperature 97.8 F Pulse Rate 90 114 H Respiratory 20 20 15 Rate Blood Pressure 150/125 Blood Pressure 137/64 [Left] O2 Sat by Pulse 95 93 96 Oximetry 01/11/21 01/11/21 01/11/21 12:16 12:30 12:46 Temperature Pulse Rate 83 79 94 H Respiratory 23 20 21 Rate Blood Pressure 147/76 152/68 213/189 Blood Pressure [Left] O2 Sat by Pulse 95 93 97 Oximetry 01/11/21 01/11/21 01/11/21 13:00 13:17 13:19 Temperature Pulse Rate 82 76 Respiratory 23 20 20 Rate Blood Pressure 130/70 Blood Pressure 130/72 [Left] O2 Sat by Pulse 96 96 96 Oximetry - Reevaluation(s) Reevaluation #1: 01/11/21 14:00 Patient continuing to complain of mild chest discomfort. Repeat troponin, lipase, LFTs, and SLN x 1 ordered. 01/11/21 14:32 ED Medical Decision Making - Lab Data Result diagrams: 01/11/21 12:06 01/11/21 12:06 Lab Results 01/11/21 01/11/21 Range/Units 12:06 12:06 WBC 10.5 (4.5-11.0) K/mm3 RBC 3.46 L (3.65-5.03) M/mm3 Hgb 9.2 L (11.8-15.2) gm/dl Hct 28.6 L (35.5-45.6) % MCV 83 L (84-94) fl MCH 27 L (28-32) pg MCHC 32 (32-34) % RDW 16.9 H (13.2-15.2) % Plt Count 262 (140-440) K/mm3 Lymph % (Auto) 13.6 (13.4-35.0) % [place] % (Auto) 10.5 H (0.0-7.3) % Eos % (Auto) 1.5 (0.0-4.3) % Baso % (Auto) 0.8 (0.0-1.8) % Lymph # (Auto) 1.4 (1.2-5.4) K/mm3 [place] # (Auto) 1.1 H (0.0-0.8) K/mm3 Eos # (Auto) 0.2 (0.0-0.4) K/mm3 Baso # (Auto) 0.1 (0.0-0.1) K/mm3 Seg Neutrophils % 73.6 H (40.0-70.0) % Seg Neutrophils # 7.7 (1.8-7.7) K/mm3 Sodium 137 (137-145) mmol/L Potassium 4.5 (3.6-5.0) mmol/L Chloride 97.7 L (98-107) mmol/L Carbon Dioxide 31 H (22-30) mmol/L Anion Gap 13 mmol/L BUN 27 H (9-20) mg/dL Creatinine 1.8 H (0.8-1.3) mg/dL Estimated GFR 45 ml/min BUN/Creatinine Ratio 15 % Glucose 189 H (75-100) mg/dL Calcium 8.8 (8.4-10.2) mg/dL Troponin T 0.013 (0.00-0.029) ng/mL Vital Signs 01/11/21 01/11/21 01/11/21 11:46 11:48 12:00 Temperature 97.8 F Pulse Rate 90 114 H Respiratory 20 20 15 Rate Blood Pressure 150/125 Blood Pressure 137/64 [Left] O2 Sat by Pulse 95 93 96 Oximetry 01/11/21 01/11/21 01/11/21 12:16 12:30 12:46 Temperature Pulse Rate 83 79 94 H Respiratory 23 20 21 Rate Blood Pressure 147/76 152/68 213/189 Blood Pressure [Left] O2 Sat by Pulse 95 93 97 Oximetry 01/11/21 01/11/21 01/11/21 13:00 13:17 13:19 Temperature Pulse Rate 82 76 Respiratory 23 20 20 Rate Blood Pressure 130/70 Blood Pressure 130/72 [Left] O2 Sat by Pulse 96 96 96 Oximetry - EKG Data -: EKG Interpreted by Me (Sinus rhythm at 94, nonspecific ST-T changes, no nspecific IVCD) - Radiology Data Radiology results: report reviewed [address] [address] XRay Report Signed Patient: CHANDU MCARTHUR MR#: [id number] 2 : 03/25/1946 Acct:[id number] Age/Sex: 74 / M ADM Date: 01/11/21 Loc: ED Attending Dr: Ordering Physician: TORRES MOLINA MD Date of Service: 01/11/21 Procedure(s): XR chest 1V ap Accession Number(s): [id number] cc: TORRES MOLINA MD Fluoro Time In Minutes: CHEST 1 VIEW 01/11/2021 12:07 PM INDICATION / CLINICAL INFORMATION: Chest Pain. COMPARISON: 05/05/2019 FINDINGS: SUPPORT DEVICES: Left chest wall cardiac device in stable position. HEART / MEDIASTINUM: Stable. LUNGS / PLEURA: Mild persistent central pulmonary vascular congestion. No confluent infiltrates or pleural effusions. No pneumothorax. ADDITIONAL FINDINGS: No significant additional findings. IMPRESSION: 1. No acute findings. No significant interval change since 05/05/2019. Signer Name: Claude Estrada MD Signed: 01/11/2021 12:21 PM Workstation Name: [id number] Transcribed By: Dictated By: CLAUDE ESTRADA Electronically Authenticated By: CLAUDE ESTRADA Signed Date/Time: 01/11/21 1221 DD/ 1218 TD/TT: Critical care attestation.: If time is entered above; I have spent that time in minutes in the direct care of this critically ill patient, excluding procedure time. ED Disposition Clinical Impression: Chest pain Disposition: OP ADMIT IP TO THIS HOSP Is pt being admited?: Yes Does the pt Need Aspirin: Yes Condition: Stable Heart Score - HEART Score History: Moderately suspicious EKG: Non-specific Age: > 65 Risk factors: > 3 risk factors or hx of atherosclerotic disease Troponin: < normal limit HEART Score: 6
--- NOTE | 2021-01-11 12:26 | XRay Report ---
CHEST 1 VIEW 01/11/2021 12:07 PM INDICATION / CLINICAL INFORMATION: Chest Pain. COMPARISON: 05/05/2019 FINDINGS: SUPPORT DEVICES: Left chest wall cardiac device in stable position. HEART / MEDIASTINUM: Stable. LUNGS / PLEURA: Mild persistent central pulmonary vascular congestion. No confluent infiltrates or pl eural effusions. No pneumothorax. ADDITIONAL FINDINGS: No significant additional findings. IMPRESSION: 1. No acute findings. No significant interval change since 05/05/2019. Signer Name: Claude Aparicio MD Signed: 01/11/2021 12:21 PM Workstation Name: [id number]
[2021-01-11 13:15] LABS: Basophils # (Auto) 0.1 K/mm3 (0.0-0.1); Basophils % (Auto) 0.8 % (0.0-1.8); Eosinophils # (Auto) 0.2 K/mm3 (0.0-0.4); Eosinophils % (Auto) 1.5 % (0.0-4.3); Hematocrit 28.6 % (35.5-45.6); Hemoglobin 9.2 gm/dl (11.8-15.2); Lymphocytes # (Auto) 1.4 K/mm3 (1.2-5.4); Lymphocytes % (Auto) 13.6 % (13.4-35.0); Mean Corpuscular HGB Conc 32 % (32-34); Mean Corpuscular Volume 83 fl (84-94); Monocytes # (Auto) 1.1 K/mm3 (0.0-0.8); Monocytes % (Auto) 10.5 % (0.0-7.3); Platelet Count 262 K/mm3 (140-440); Red Blood Count 3.46 M/mm3 (3.65-5.03); Red Cell Distribution Width 16.9 % (13.2-15.2)
[2021-01-11 13:32] LABS: Calcium 8.8 mg/dL (8.4-10.2)
[2021-01-11] MEDS ORDERED: ASPIRIN 325 MG TAB PO ONE (14:02)
[2021-01-11] MEDS ORDERED: NITROGLYCERIN 0.4 MG TAB SUBL SL ONE (14:05)
[2021-01-11] MEDS: HYDROmorphone 1 MG/1 ML INJ IV PRN ×3 (14:31→21:10)
[2021-01-11 14:57] LABS: INR 3.75 (0.87-1.13)
[2021-01-11 15:19] LABS: Alanine Aminotransferase 14 units/L (7-56); Albumin 3.5 g/dL (3.9-5)
[2021-01-11 15:32] LABS: Bilirubin,Direct < 0.2 mg/dL (0-0.2)
[2021-01-11] MEDS ORDERED: NON-FORMULARY EACH (Docusate Sodium [Dok] 100 MG Tablet) PO PRN (23:41)
[2021-01-11] MEDS ORDERED: NON-FORMULARY EACH (Hydrocodone/Acetaminophen [Hydrocodone-Acetamin 5-300 Mg] 1 EACH Table PO PRN (23:41)
[2021-01-11] MEDS ORDERED: NITROGLYCERIN 0.4 MG TAB SUBL SL PRN (23:41)
--- NOTE | 2021-01-11 23:41 | History and Physical Report ---
History of Present Illness Date of examination: 01/11/21 Date of admission: 01/11/21 14:07 Chief complaint: Chest pain since a.m. History of present illness: - History of Present Illness Initial comments: Patient is a 74-year-old male presents emergency department for evaluation of lightheadedness which occurred after getting out of the shower this morning. Patient notes lightheadedness began to resolve, at which point patient noticed he had mild but constant central chest pressure. denies pleuritic component, denies fever, denies cough, denies shortness of breath. - Past Medical History Previous Medical History?: Yes Hx Hypertension: Yes Hx Heart Attack/AMI: Yes (4 stents) Hx Congestive Heart Failure: Yes (3L of oxgyen via NC) Hx Deep Vein Thrombosis: Yes (h/o) Hx Pulmonary Embolism: Yes Hx Renal Disease: Yes (VANGIE) Additional medical history: Cardiac Angioplasty/ stent placement x 4 in the RCA (most recent February 2013). CAD,AFIB,lymphadema. SLEEP APNEA,GOUT, HOME O2 2L - Surgical History Past Surgical History?: Yes --Coronary Stent: Yes --pacemaker - Social History Smoking Status: Never Smoker Substance Use Type: None - Medications Home Medications: Home Medications Medication Instructions Recorded Confirmed Last Taken Type Rivaroxaban [Xarelto] 20 mg PO QDAY 10/10/16 12/31/19 05/05/19 10:00 History 20 mg Carvedilol [Coreg] 12.5 mg PO BID 09/01/17 12/31/19 05/05/19 17:00 History Fish Oil/Borage/Flax/Om3,6,9 1 1,200 mg PO DAILY 09/01/17 12/31/19 05/05/19 10:00 History [[place] 3-6-9 1,200 mg Softgel] ISOSORBIDE MONOnitrate [Imdur ER] 60 mg PO BID 09/01/17 12/31/19 05/05/19 17:00 History Ipratropium/Albuterol Sulfate 1 puff IH Q8H PRN 09/01/17 12/31/19 05/05/19 09:00 History [Combivent Respimat] Nitroglycerin [Nitrostat] 0.4 mg SL Q5M PRN 09/01/17 12/31/19 05/05/19 22:00 History allopurinoL [Zyloprim] 100 mg PO BID 09/01/17 12/31/19 05/05/19 10:00 History AtorvaSTATin [Lipitor] 80 mg PO QDAY tablet 09/04/17 12/31/19 05/05/19 10:00 Rx Cholecalciferol Vit D3 [Vitamin D3 400 unit PO QDAY tablet 09/04/17 12/31/19 05/05/19 10:00 Rx 400 UNIT TAB] Colchicine [Colcrys] 0.6 mg PO QDAY tablet 09/04/17 12/31/19 05/05/19 10:00 Rx Torsemide [Demadex] 40 mg PO DAILY #30 tablet 09/04/17 12/31/19 05/05/19 10:00 Rx glipiZIDE [Glucotrol] 10 mg PO BID #60 tablet 09/04/17 12/31/19 05/05/19 17:00 Rx metOLazone [Zaroxolyn] 5 mg PO 1XW #4 tablet 09/04/17 12/31/19 05/05/19 10:00 Rx Pantoprazole [Protonix TAB] 40 mg PO QDAY #30 tablet 11/20/18 12/31/19 05/05/19 10:00 Rx Ranolazine ER [Ranexa ER] 500 mg PO BID #30 tablet 11/20/18 12/31/19 05/05/19 10:00 Rx Nitrofurantoin [place]/M-Cryst 100 mg PO Q12HR #14 capsule 12/31/19 Unknown Rx [Macrobid CAP] cephALEXin [Keflex] 500 mg PO Q8HR #28 cap 07/11/20 Unknown Rx Review of Systems ROS: Stated complaint: CHEST PAIN Other details as noted in HPI Comment: All other systems reviewed and negative Medications and Allergies Allergies Allergy/AdvReac Type Severity Reaction Status Date / Time No Known Allergies Allergy Verified 04/28/15 18:04 Home Medications Medication Instructions Recorded Confirmed Last Taken Type Rivaroxaban [Xarelto] 20 mg PO QDAY 10/10/16 01/11/21 05/05/19 10:00 History 20 mg Carvedilol [Coreg] 12.5 mg PO BID 09/01/17 01/11/21 05/05/19 17:00 History Nitroglycerin [Nitrostat] 0.4 mg SL Q5M PRN 09/01/17 01/11/21 05/05/19 22:00 History allopurinoL [Zyloprim] 100 mg PO BID 09/01/17 01/11/21 05/05/19 10:00 History AtorvaSTATin [Lipitor] 80 mg PO QDAY tablet 09/04/17 01/11/21 05/05/19 10:00 Rx glipiZIDE [Glucotrol] 10 mg PO BID #60 tablet 09/04/17 01/11/21 05/05/19 17:00 Rx metOLazone [Zaroxolyn] 5 mg PO 1XW #4 tablet 09/04/17 01/11/21 05/05/19 10:00 Rx Aspirin EC [Halfprin EC] 81 mg PO QDAY 01/11/21 01/11/21 Unknown History Biotin [Biotin 10,000 rapdis] 10,000 mcg PO DAILY 01/11/21 01/11/21 Unknown History Docusate Sodium [Dok] 100 mg PO DAILY PRN 01/11/21 01/11/21 Unknown History Doxazosin [Cardura] 4 mg PO QDAY 01/11/21 01/11/21 Unknown History Ferrous Sulfate [Iron 325 MG] 325 mg PO DAILY 01/11/21 01/11/21 Unknown History Gabapentin [Neurontin] 300 mg PO BID 01/11/21 01/11/21 Unknown History HYDROcodone/ACETAMINOPHEN 1 tab PO Q4H PRN 01/11/21 01/11/21 Unknown History [Hydrocodone-Acetamin 5-300 mg] Torsemide [Demadex] 20 mg PO BID 01/11/21 01/11/21 Unknown History lisinopriL [Lisinopril] 20 mg PO DAILY 01/11/21 01/11/21 Unknown History Active Meds: Active Medications Hydromorphone HCl (Hydromorphone 1 Mg/1 Ml Inj) 0.5 mg IV Q3H PRN PRN Reason: Pain , Severe (7-10) Last Admin: 01/11/21 18:01 Dose: 0.5 mg Documented by: Exam - Constitutional Vitals: Temp Pulse Resp BP Pulse Ox 97.8 F 70 16 141/62 100 01/11/21 11:48 01/11/21 22:00 01/11/21 22:00 01/11/21 22:01 01/11/21 22:00 General appearance: Present: no acute distress, well-nourished - EENT Eyes: Present: PERRL ENT: hearing intact, clear oral mucosa - Neck Neck: Present: supple, normal ROM - Respiratory Respiratory effort: normal Respiratory: bilateral: CTA - Cardiovascular Heart rate: 78 Rhythm: regular Heart Sounds: Present: S1 & S2. Absent: rub, click - Extremities Extremities: pulses symmetrical, No edema, abnormal (Severe lymphedema both lower extremities) Extremity abnormal: other (Severe lymphedema both lower extremities) Peripheral Pulses: within normal limits - Abdominal General gastrointestinal: Present: soft, non-tender, non-distended, normal bowel sounds Male genitourinary: Present: normal - Integumentary Integumentary: Present: clear, warm, dry - Musculoskeletal Musculoskeletal: gait normal, strength equal bilaterally - Psychiatric Psychiatric: appropriate mood/affect, intact judgment & insight - Neurologic Neurologic: CNII-XII intact, moves all extremities HEART Score - HEART Score History: Highly suspicious EKG: Non-specific Age: > 65 Risk factors: > 3 risk factors or hx of atherosclerotic disease Troponin: Troponin T 0.011 ng/mL (0.00-0.029) 01/11/21 14:13 Troponin: < normal limit HEART Score: 7 - Critical Actions Critical Actions: 4-6 pts:12-16.6% risk of adverse cardiac event. Should be admitted Results - Labs CBC & Chem 7: 01/11/21 12:06 01/11/21 12:06 Labs: Laboratory Last Values WBC 10.5 K/mm3 (4.5-11.0) 01/11/21 12:06 RBC 3.46 M/mm3 (3.65-5.03) L 01/11/21 12:06 Hgb 9.2 gm/dl (11.8-15.2) L 01/11/21 12:06 Hct 28.6 % (35.5-45.6) L 01/11/21 12:06 MCV 83 fl (84-94) L 01/11/21 12:06 MCH 27 pg (28-32) L 01/11/21 12:06 MCHC 32 % (32-34) 01/11/21 12:06 RDW 16.9 % (13.2-15.2) H 01/11/21 12:06 Plt Count 262 K/mm3 (140-440) 01/11/21 12:06 Lymph % (Auto) 13.6 % (13.4-35.0) 01/11/21 12:06 [place] % (Auto) 10.5 % (0.0-7.3) H 01/11/21 12:06 Eos % (Auto) 1.5 % (0.0-4.3) 01/11/21 12:06 Baso % (Auto) 0.8 % (0.0-1.8) 01/11/21 12:06 Lymph # (Auto) 1.4 K/mm3 (1.2-5.4) 01/11/21 12:06 [place] # (Auto) 1.1 K/mm3 (0.0-0.8) H 01/11/21 12:06 Eos # (Auto) 0.2 K/mm3 (0.0-0.4) 01/11/21 12:06 Baso # (Auto) 0.1 K/mm3 (0.0-0.1) 01/11/21 12:06 Seg Neutrophils % 73.6 % (40.0-70.0) H 01/11/21 12:06 Seg Neutrophils # 7.7 K/mm3 (1.8-7.7) 01/11/21 12:06 PT 37.7 Sec. (12.2-14.9) H 01/11/21 14:13 INR 3.75 (0.87-1.13) H 01/11/21 14:13 Sodium 137 mmol/L (137-145) 01/11/21 12:06 Potassium 4.5 mmol/L (3.6-5.0) 01/11/21 12:06 Chloride 97.7 mmol/L (98-107) L 01/11/21 12:06 Carbon Dioxide 31 mmol/L (22-30) H 01/11/21 12:06 Anion Gap 13 mmol/L 01/11/21 12:06 BUN 27 mg/dL (9-20) H 01/11/21 12:06 Creatinine 1.8 mg/dL (0.8-1.3) H 01/11/21 12:06 Estimated GFR 45 ml/min 01/11/21 12:06 BUN/Creatinine Ratio 15 % 01/11/21 12:06 Glucose 189 mg/dL (75-100) H 01/11/21 12:06 Calcium 8.8 mg/dL (8.4-10.2) 01/11/21 12:06 Total Bilirubin 0.40 mg/dL (0.1-1.2) 01/11/21 14:13 Direct Bilirubin < 0.2 mg/dL (0-0.2) 01/11/21 14:13 AST 18 units/L (5-40) 01/11/21 14:13 ALT 14 units/L (7-56) 01/11/21 14:13 Alkaline Phosphatase 129 units/L (35-129) 01/11/21 14:13 Troponin T 0.011 ng/mL (0.00-0.029) 01/11/21 14:13 Total Protein 7.8 g/dL (6.3-8.2) 01/11/21 14:13 Albumin 3.5 g/dL (3.9-5) L 01/11/21 14:13 Albumin/Globulin Ratio 0.8 % 01/11/21 14:13 Lipase 31 units/L (13-60) 01/11/21 14:13 Short CBC 01/11/21 Range/Units 12:06 WBC 10.5 (4.5-11.0) K/mm3 Hgb 9.2 L (11.8-15.2) gm/dl Hct 28.6 L (35.5-45.6) % Plt Count 262 (140-440) K/mm3 BMP 01/11/21 12:06 Sodium 137 Potassium 4.5 Chloride 97.7 L Carbon Dioxide 31 H BUN 27 H Creatinine 1.8 H Glucose 189 H Calcium 8.8 Cardiac Enzymes 01/11/21 01/11/21 Range/Units 12:06 14:13 Troponin T 0.013 0.011 (0.00-0.029) ng/mL Liver Function 01/11/21 Range/Units 14:13 Total Bilirubin 0.40 (0.1-1.2) mg/dL Direct Bilirubin < 0.2 (0-0.2) mg/dL AST 18 (5-40) units/L ALT 14 (7-56) units/L Alkaline Phosphatase 129 (35-129) units/L Albumin 3.5 L (3.9-5) g/dL Assessment and Plan Advance Directives: Yes (Code) VTE prophylaxis?: Chemical Plan of care discussed with patient/family: Yes - Patient Problems (1) Acute coronary syndrome Current Visit: Yes Status: Acute Plan to address problem: Serial troponins and Lexiscan in the morning (2) VANGIE (acute kidney injury) Current Visit: Yes Status: Acute Plan to address problem: Secondary to vasomotor nephropathy Fluid challenge for now (3) CAD (coronary artery disease) Current Visit: No Status: Chronic Qualifiers: Coronary Disease-Associated Artery/Lesion type: [place] artery [place] vs. transplanted heart: [place] heart Associated angina: with unspecified angina Qualified Code(s): I25.119 - Atherosclerotic heart disease of [place] coronary artery with unspecified angina pectoris Plan to address problem: Continue isosorbide mono nitrate and aspirin (4) HTN (hypertension) Current Visit: Yes Status: Chronic Qualifiers: Hypertension type: essential hypertension Qualified Code(s): I10 - Essential (primary) hypertension Plan to address problem: Continue antihypertensives (5) Lymphedema Current Visit: Yes Status: Chronic Plan to address problem: Severe Follow with vascular surgery as outpatient (6) DVT prophylaxis Current Visit: Yes Status: Acute Plan to address problem: On heparin and GI prophylaxis
[2021-01-11] MEDS ORDERED: ONDANSETRON 4 MG/2 ML INJ IV PRN (23:43)
[2021-01-11] MEDS ORDERED: ACETAMINOPHEN 325 MG TAB PO PRN (23:43)
[2021-01-11] MEDS ORDERED: IBUPROFEN 600 MG TAB PO PRN (23:43)
[2021-01-11] MEDS ORDERED: NON-FORMULARY EACH (Torsemide [Demadex] 20 MG Tablet) PO SCH (23:45)
[2021-01-12] MEDS ORDERED: HYDROcodone/ACETAMINOPHEN 5-325 MG TAB PO PRN (00:03)
[2021-01-12] MEDS ORDERED: DOCUSATE SODIUM 100 MG CAP PO PRN (00:05)
[2021-01-12] MEDS: allopurinoL 100 MG TAB PO SCH ×2 (00:39→10:25)
[2021-01-12] MEDS: carvediloL 12.5 MG TAB PO SCH ×2 (00:39→10:25)
[2021-01-12] MEDS ORDERED: FUROSEMIDE 40 MG/4 ML INJ IV SCH (06:00)
[2021-01-12 07:09] LABS: Calcium 8.9 mg/dL (8.4-10.2)
[2021-01-12] MEDS ORDERED: INSULIN LISPRO 100 UNIT/ML SUB-Q SCH (07:30)
[2021-01-12] MEDS ORDERED: glipiZIDE 10 MG TAB PO SCH (08:00)
[2021-01-12] MEDS ORDERED: FERROUS SULFATE 325 MG TAB PO SCH (10:00)
[2021-01-12] MEDS ORDERED: LISINOPRIL 20 MG TAB PO SCH (10:00)
[2021-01-12] MEDS ORDERED: FAMOTIDINE 20 MG TAB PO SCH (10:00)
[2021-01-12] MEDS ORDERED: GABAPENTIN 300 MG CAP PO SCH (10:00)
[2021-01-12] MEDS ORDERED: ASPIRIN EC 81 MG TAB PO SCH (10:00)
[2021-01-12] MEDS ORDERED: RIVAROXABAN 20 MG TAB PO SCH (10:00)
[2021-01-12] MEDS ORDERED: RAPDIS PO SCH (10:00)
[2021-01-12] MEDS ORDERED: BIOTIN PO SCH (10:00)
[2021-01-12] MEDS ORDERED: DOXAZOSIN 4 MG TAB PO SCH (10:00)
--- NOTE | 2021-01-12 11:38 | Progress Note ---
Assessment and Plan Assessment and plan: #Chest pain Has a history of coronary artery disease with significant three-vessel disease based on last cath in 2017 Continue aspirin, statin. Lexiscan ordered late this a.m. Cardiology consulted Maintain n.p.o. for now #CKD Monitor renal function for now #Hypertension Continue home medications #Chronic lymphedema Follow-up with vascular surgery in the office DVT prophylaxis-Lovenox Full code History Interval history: Patient seen and examined at bedside this morning Denies any chest pain or palpitations Apparently Lexiscan not ordered yesterday. Lexiscan now ordered. Consulted cardiology Hospitalist Physical - Physical exam Narrative exam: VITAL SIGNS: Reviewed. GENERAL: Awake HEAD: No signs of head trauma. EYES: Pupils are equal. Extraocular motions intact. MOUTH: Oropharynx is normal. NECK: No adenopathy, no JVD. CHEST: Chest with diminished breath sounds bilaterally. No wheezes, rales, or rhonchi. CARDIAC: normal S1 and S2, without murmurs, gallops, or rubs. ABDOMEN: Soft, non tender and non distended. No rebound or guarding, and no masses palpated. Bowel Sounds normal. MUSCULOSKELETAL: Bilateral lymphedema NEUROLOGIC EXAM: Alert and oriented x3. No focal neurologic deficits SKIN: No obvious lesions - Constitutional Vitals: Temp Pulse Resp BP Pulse Ox 98.0 F 68 18 144/54 100 01/12/21 03:46 01/12/21 03:46 01/12/21 03:46 01/12/21 03:46 01/12/21 03:46 HEART Score - HEART Score EKG: Non-specific Age: > 65 Risk factors: > 3 risk factors or hx of atherosclerotic disease Troponin: Troponin T 0.011 ng/mL (0.00-0.029) 01/11/21 14:13 Troponin: < normal limit - Critical Actions Critical Actions: 4-6 pts:12-16.6% risk of adverse cardiac event. Should be admitted Results - Labs CBC & Chem 7: 01/11/21 12:06 01/12/21 05:55 Labs: Laboratory Last Values WBC 10.5 K/mm3 (4.5-11.0) 01/11/21 12:06 RBC 3.46 M/mm3 (3.65-5.03) L 01/11/21 12:06 Hgb 9.2 gm/dl (11.8-15.2) L 01/11/21 12:06 Hct 28.6 % (35.5-45.6) L 01/11/21 12:06 MCV 83 fl (84-94) L 01/11/21 12:06 MCH 27 pg (28-32) L 01/11/21 12:06 MCHC 32 % (32-34) 01/11/21 12:06 RDW 16.9 % (13.2-15.2) H 01/11/21 12:06 Plt Count 262 K/mm3 (140-440) 01/11/21 12:06 Lymph % (Auto) 13.6 % (13.4-35.0) 01/11/21 12:06 Brown % (Auto) 10.5 % (0.0-7.3) H 01/11/21 12:06 Eos % (Auto) 1.5 % (0.0-4.3) 01/11/21 12:06 Baso % (Auto) 0.8 % (0.0-1.8) 01/11/21 12:06 Lymph # (Auto) 1.4 K/mm3 (1.2-5.4) 01/11/21 12:06 Brown # (Auto) 1.1 K/mm3 (0.0-0.8) H 01/11/21 12:06 Eos # (Auto) 0.2 K/mm3 (0.0-0.4) 01/11/21 12:06 Baso # (Auto) 0.1 K/mm3 (0.0-0.1) 01/11/21 12:06 Seg Neutrophils % 73.6 % (40.0-70.0) H 01/11/21 12:06 Seg Neutrophils # 7.7 K/mm3 (1.8-7.7) 01/11/21 12:06 PT 37.7 Sec. (12.2-14.9) H 01/11/21 14:13 INR 3.75 (0.87-1.13) H 01/11/21 14:13 Sodium 136 mmol/L (137-145) L 01/12/21 05:55 Potassium 4.5 mmol/L (3.6-5.0) 01/12/21 05:55 Chloride 95.9 mmol/L (98-107) L 01/12/21 05:55 Carbon Dioxide 32 mmol/L (22-30) H 01/12/21 05:55 Anion Gap 13 mmol/L 01/12/21 05:55 BUN 27 mg/dL (9-20) H 01/12/21 05:55 Creatinine 1.7 mg/dL (0.8-1.3) H 01/12/21 05:55 Estimated GFR 48 ml/min 01/12/21 05:55 BUN/Creatinine Ratio 16 % 01/12/21 05:55 Glucose 206 mg/dL (75-100) H 01/12/21 05:55 POC Glucose 179 mg/dL (70-105) H 01/12/21 08:28 Hemoglobin A1c 7.6 % (4-6) H 01/12/21 05:55 Calcium 8.9 mg/dL (8.4-10.2) 01/12/21 05:55 Total Bilirubin 0.40 mg/dL (0.1-1.2) 01/12/21 05:55 Direct Bilirubin < 0.2 mg/dL (0-0.2) 01/11/21 14:13 AST 13 units/L (5-40) 01/12/21 05:55 ALT 12 units/L (7-56) 01/12/21 05:55 Alkaline Phosphatase 113 units/L (35-129) 01/12/21 05:55 Troponin T 0.011 ng/mL (0.00-0.029) 01/11/21 14:13 Total Protein 7.4 g/dL (6.3-8.2) 01/12/21 05:55 Albumin 3.0 g/dL (3.9-5) L 01/12/21 05:55 Albumin/Globulin Ratio 0.7 % 01/12/21 05:55 Lipase 31 units/L (13-60) 01/11/21 14:13 Medrano/IV: Voiding Method Urinal Active Medications - Current Medications Current Medications: Generic Name Dose Route Start Last Admin Trade Name Freq PRN Reason Stop Dose Admin Acetaminophen 650 mg 01/11/21 23:43 Acetaminophen 325 Mg Tab PO Q4H PRN Pain MILD(1-3)/Fever >100.5/BOND Hydrocodone Bitart/Acetaminophen 1 each 01/12/21 00:03 Hydrocodone/Acetaminophen 5-325 Mg Tab PO Q4H PRN Pain, Moderate (4-6) Allopurinol 100 mg 01/11/21 23:45 01/12/21 10:25 Allopurinol 100 Mg Tab PO 100 mg BID KATIE Administration Aspirin 81 mg 01/12/21 10:00 01/12/21 10:24 Aspirin Ec 81 Mg Tab PO 81 mg QDAY KATIE Administration Atorvastatin Calcium 80 mg 01/12/21 10:00 01/12/21 10:25 Atorvastatin 40 Mg Tab PO 80 mg QDAY KATIE Administration Carvedilol 12.5 mg 01/11/21 23:45 01/12/21 10:25 Carvedilol 12.5 Mg Tab PO 12.5 mg BID [facility] Administration Docusate Sodium 100 mg 01/12/21 00:05 Docusate Sodium 100 Mg Cap PO DAILY PRN Constipation Doxazosin Mesylate 4 mg 01/12/21 10:00 01/12/21 10:25 Doxazosin 4 Mg Tab PO 4 mg QDAY [facility] Administration Famotidine 20 mg 01/12/21 10:00 01/12/21 10:25 Famotidine 20 Mg Tab PO 20 mg BID [facility] Administration Ferrous Sulfate 325 mg 01/12/21 10:00 01/12/21 10:24 Ferrous Sulfate 325 Mg Tab PO 325 mg DAILY [facility] Administration Gabapentin 300 mg 01/12/21 10:00 01/12/21 10:25 Gabapentin 300 Mg Cap PO 300 mg BID [facility] Administration Glipizide 10 mg 01/12/21 08:00 01/12/21 10:25 Glipizide 10 Mg Tab PO 10 mg BIDDIAB [facility] Administration Hydromorphone HCl 0.5 mg 01/11/21 14:26 01/11/21 18:01 Hydromorphone 1 Mg/1 Ml Inj IV 0.5 mg Q3H PRN Administration Pain , Severe (7-10) Insulin Human Lispro 0 unit 01/12/21 07:30 01/12/21 10:26 Insulin Lispro 100 Unit/Ml SUB-Q Not Given ACHS [facility] Protocol Lisinopril 20 mg 01/12/21 10:00 01/12/21 10:25 Lisinopril 20 Mg Tab PO 20 mg DAILY KATIE Administration Metolazone 5 mg 01/16/21 10:00 Metolazone 5 Mg Tab PO Tu [facility] Nitroglycerin 0.4 mg 01/11/21 23:41 Nitroglycerin 0.4 Mg Tab Subl SL Q5M PRN Chest Pain Ondansetron HCl 4 mg 01/11/21 23:43 Ondansetron 4 Mg/2 Ml Inj IV Q8H PRN Nausea And Vomiting Rivaroxaban 20 mg 01/12/21 10:00 01/12/21 10:25 Rivaroxaban 20 Mg Tab PO 20 mg QDAY [facility] Administration Protocol Sodium Chloride 10 ml 01/12/21 10:00 01/12/21 10:25 Sodium Chloride 0.9% 10 Ml Flush Syringe IV 10 ml BID KATIE Administration Sodium Chloride 10 ml 01/11/21 23:43 Sodium Chloride 0.9% 10 Ml Flush Syringe IV PRN PRN LINE FLUSH
[2021-01-12 12:54] VITALS: BP 124/59
[2021-01-12] MEDS: HYDROmorphone 1 MG/1 ML INJ IV PRN (13:41)
--- NOTE | 2021-01-12 13:44 | Discharge Summary ---
Providers - Providers Date of Admission: 01/11/21 14:07 Date of discharge: 01/12/21 Attending physician: KIRIT LAFLEUR 01/12/21 11:22 Consult to Physician [CONS] Routine Comment: Consulting Provider: MAURO RODRIGUEZ Physician Instructions: Reason For Exam: Chest pain Primary care physician: INGRIS WARNER JR, [employer] Hospitalization Condition: Stable Hospital course: 74-year-old male with a medical history of coronary artery disease, hypertension who presents emergency department for evaluation of lightheadedness which occurred after getting out of the shower. Patient notes lightheadedness began to resolve, at which point patient noticed he had mild but constant central chest pressure. denies pleuritic component, denies fever, denies cough, denies shortness of breath. Here in the ER, his EKG showed no significant ischemic changes and troponin was negative. Patient was admitted for evaluation of chest pain with a Lexiscan. No chest pain this am. He has been seen by cardiology team. His chest pain is atypical and reproducible. Patient has a history of coronary artery disease not amenable to PCI. 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 He has been advised to continue taking his medications as prescribed. Disposition: - TO HOME OR SELFCARE Time spent for discharge: 25 minutes - Discharge Diagnoses (1) Chest pain Status: Acute Comment: Musculoskeletal. (2) Chronic kidney disease Status: Acute Core Measure Documentation - Palliative Care Palliative Care/ Comfort Measures: Not Applicable - Core Measures Any of the following diagnoses?: none Exam - Physical Exam Narrative exam: VITAL SIGNS: Reviewed. GENERAL: Awake HEAD: No signs of head trauma. EYES: Pupils are equal. Extraocular motions intact. MOUTH: Oropharynx is normal. NECK: No adenopathy, no JVD. CHEST: Chest with diminished breath sounds bilaterally. No wheezes, rales, or rhonchi. CARDIAC: normal S1 and S2, without murmurs, gallops, or rubs. ABDOMEN: Soft, non tender and non distended. No rebound or guarding, and no masses palpated. Bowel Sounds normal. MUSCULOSKELETAL: Bilateral lymphedema NEUROLOGIC EXAM: Alert and oriented x3. No focal neurologic deficits SKIN: No obvious lesions - Constitutional Vitals: Temp Pulse Resp BP Pulse Ox 97.5 F L 62 18 124/59 100 02/26/21 07:31 01/12/21 10:00 01/12/21 07:31 01/12/21 07:31 01/12/21 07:31 Plan Activity: no restrictions Additional Instructions: Continue home oxygen use. Follow-up with your resource management specialist in the office in 1 week Follow up with: INGRIS WARNER JR, [employer] [Primary Care Provider] - 3-5 Days
--- NOTE | 2021-01-12 13:49 | Consultation ---
History of Present Illness Consult date: 01/12/21 Consult reason: chest pain History of present illness: This is a 74-year old M with a history of complex coronary artery disease and chronic stable angina. November 2016 a cardiac catheterization revealed patent stents in the circumflex system and mild nonobstructive disease of the LAD. There was SLUNK SKIN CURER of the right coronary recommended for medical therapy. He has an ischemic cardiomyopathy, and has a dual-chamber pacemaker in situ. He is on oral anticoagulation therapy Xarelto for paroxysmal atrial fibrillation, and a history of pulmonary embolism. Comorbidities includes obesity, obstructive sleep apnea, hypertension, diabetes, and chronic lymphedema. He is admitted to the hospital at this time with atypical, poorly characterized chest pain. Chest pain is reproducible with palpation and position changes. Chest x-ray is negative, no evidence of interstitial edema. Labs shows a creatinine at 1.7. An ECG is sinus rhythm with a left bundle branch block. No acute ischemic changes. Past History Past Medical History: CAD, diabetes, hypertension, pulmonary embolism, stroke, other (KARELY, obesity hypoventilation syndrome) Past Surgical History: Other (Pacemaker implant) Medications and Allergies Allergies Allergy/AdvReac Type Severity Reaction Status Date / Time No Known Allergies Allergy Verified 04/28/15 18:04 Home Medications Medication Instructions Recorded Confirmed Last Taken Type Rivaroxaban [Xarelto] 20 mg PO QDAY 10/10/16 01/11/21 05/05/19 10:00 History 20 mg Carvedilol [Coreg] 12.5 mg PO BID 09/01/17 01/11/21 05/05/19 17:00 History Nitroglycerin [Nitrostat] 0.4 mg SL Q5M PRN 09/01/17 01/11/21 05/05/19 22:00 History allopurinoL [Zyloprim] 100 mg PO BID 09/01/17 01/11/21 05/05/19 10:00 History AtorvaSTATin [Lipitor] 80 mg PO QDAY tablet 09/04/17 01/11/21 05/05/19 10:00 Rx glipiZIDE [Glucotrol] 10 mg PO BID #60 tablet 09/04/17 01/11/21 05/05/19 17:00 Rx metOLazone [Zaroxolyn] 5 mg PO 1XW #4 tablet 09/04/17 01/11/21 05/05/19 10:00 Rx Aspirin EC [Halfprin EC] 81 mg PO QDAY 01/11/21 01/11/21 Unknown History Biotin [Biotin 10,000 rapdis] 10,000 mcg PO DAILY 01/11/21 01/11/21 Unknown History Docusate Sodium [Dok] 100 mg PO DAILY PRN 01/11/21 01/11/21 Unknown History Doxazosin [Cardura] 4 mg PO QDAY 01/11/21 01/11/21 Unknown History Ferrous Sulfate [Iron 325 MG] 325 mg PO DAILY 01/11/21 01/11/21 Unknown History Gabapentin 300 mg PO BID 01/11/21 01/11/21 Unknown History HYDROcodone/ACETAMINOPHEN 1 tab PO Q4H PRN 01/11/21 01/11/21 Unknown History [Hydrocodone-Acetamin 5-300 mg] Torsemide [Demadex] 20 mg PO BID 01/11/21 01/11/21 Unknown History lisinopriL [Lisinopril] 20 mg PO DAILY 01/11/21 01/11/21 Unknown History Active Meds: Active Medications Acetaminophen (Acetaminophen 325 Mg Tab) 650 mg PO Q4H PRN PRN Reason: Pain MILD(1-3)/Fever >100.5/BOND Hydrocodone Bitart/Acetaminophen (Hydrocodone/Acetaminophen 5-325 Mg Tab) 1 each PO Q4H PRN PRN Reason: Pain, Moderate (4-6) Allopurinol (Allopurinol 100 Mg Tab) 100 mg PO BID [facility] Last Admin: 01/12/21 10:25 Dose: 100 mg Documented by: Aspirin (Aspirin Ec 81 Mg Tab) 81 mg PO QDAY [facility] Last Admin: 01/12/21 10:24 Dose: 81 mg Documented by: Atorvastatin Calcium (Atorvastatin 40 Mg Tab) 80 mg PO QDAY [facility] Last Admin: 01/12/21 10:25 Dose: 80 mg Documented by: Carvedilol (Carvedilol 12.5 Mg Tab) 12.5 mg PO BID [facility] Last Admin: 01/12/21 10:25 Dose: 12.5 mg Documented by: Docusate Sodium (Docusate Sodium 100 Mg Cap) 100 mg PO DAILY PRN PRN Reason: Constipation Doxazosin Mesylate (Doxazosin 4 Mg Tab) 4 mg PO QDAY [facility] Last Admin: 01/12/21 10:25 Dose: 4 mg Documented by: Famotidine (Famotidine 20 Mg Tab) 20 mg PO BID [facility] Last Admin: 01/12/21 10:25 Dose: 20 mg Documented by: Ferrous Sulfate (Ferrous Sulfate 325 Mg Tab) 325 mg PO DAILY [facility] Last Admin: 01/12/21 10:24 Dose: 325 mg Documented by: Gabapentin (Gabapentin 300 Mg Cap) 300 mg PO BID [facility] Last Admin: 01/12/21 10:25 Dose: 300 mg Documented by: Glipizide (Glipizide 10 Mg Tab) 10 mg PO BIDDIAB [facility] Last Admin: 01/12/21 10:25 Dose: 10 mg Documented by: Hydromorphone HCl (Hydromorphone 1 Mg/1 Ml Inj) 0.5 mg IV Q3H PRN PRN Reason: Pain , Severe (7-10) Last Admin: 01/12/21 13:41 Dose: 0.5 mg Documented by: Insulin Human Lispro (Insulin Lispro 100 Unit/Ml) 0 unit SUB-Q ACHS [facility]; Protocol Last Admin: 01/12/21 10:26 Dose: Not Given Documented by: Lisinopril (Lisinopril 20 Mg Tab) 20 mg PO DAILY [facility] Last Admin: 01/12/21 10:25 Dose: 20 mg Documented by: Metolazone (Metolazone 5 Mg Tab) 5 mg PO [facility] Nitroglycerin (Nitroglycerin 0.4 Mg Tab Subl) 0.4 mg SL Q5M PRN PRN Reason: Chest Pain Ondansetron HCl (Ondansetron 4 Mg/2 Ml Inj) 4 mg IV Q8H PRN PRN Reason: Nausea And Vomiting Last Admin: 01/12/21 13:41 Dose: 4 mg Documented by: Rivaroxaban (Rivaroxaban 20 Mg Tab) 20 mg PO QDAY [facility]; Protocol Last Admin: 01/12/21 10:25 Dose: 20 mg Documented by: Sodium Chloride (Sodium Chloride 0.9% 10 Ml Flush Syringe) 10 ml IV BID [facility] Last Admin: 01/12/21 10:25 Dose: 10 ml Documented by: Sodium Chloride (Sodium Chloride 0.9% 10 Ml Flush Syringe) 10 ml IV PRN PRN PRN Reason: LINE FLUSH Review of Systems Cardiovascular: chest pain (atypical), other (chronic lymphedema), no palpitations, no syncope, no lightheadedness, no shortness of breath Physical Examination Vital Signs Resp Pulse Ox 20 95 01/11/21 11:46 01/11/21 11:46 General appearance: no acute distress HEENT: Positive: PERRL Neck: Positive: trachea midline Cardiac: Positive: Other (paced) Lungs: Positive: Decreased Breath Sounds Extremities: Present: Other (chronic lymphedema) Results 01/11/21 12:06 01/12/21 05:55 Cardiac Enzymes 01/11/21 01/12/21 Range/Units 14:13 05:55 AST 18 13 (5-40) units/L Coagulation 01/11/21 Range/Units 14:13 PT 37.7 H (12.2-14.9) Sec. INR 3.75 H (0.87-1.13) Comprehensive Metabolic Panel 01/11/21 01/12/21 Range/Units 14:13 05:55 Sodium 136 L (137-145) mmol/L Potassium 4.5 (3.6-5.0) mmol/L Chloride 95.9 L (98-107) mmol/L Carbon Dioxide 32 H (22-30) mmol/L BUN 27 H (9-20) mg/dL Creatinine 1.7 H (0.8-1.3) mg/dL Glucose 206 H (75-100) mg/dL Calcium 8.9 (8.4-10.2) mg/dL Direct Bilirubin < 0.2 (0-0.2) mg/dL AST 18 13 (5-40) units/L ALT 14 12 (7-56) units/L Alkaline Phosphatase 129 113 (35-129) units/L Total Protein 7.8 7.4 (6.3-8.2) g/dL Albumin 3.5 L 3.0 L (3.9-5) g/dL Assessment and Plan Atypical chest pain, musculoskeletal Chronic stable angina Acute renal failure Hx of CAD s/p PCI to RCA with WILLIAMS 2010 and another PCI to mid RCA with promus stent in 2012 Cath 11/2016 - revealed patent stents in the circumflex system and mild nonobstructive disease of the LAD. There was SLUNK SKIN CURER of the right coronary recommended for medical therapy. Echo 09/2017 - LVEF 40-45% Paroxysmal Atrial Fibrillation On xarelto as an outpatient Hx of Second degree AV block s/p dual chamber pacemaker implant with atrial lead revision for dislodged atrial lead 10/2018. normal function on outpatient device interrogation. Lymphedema, chronic Type II diabetes mellitus Obesity History of cerebrovascular disease History of pulmonary embolism Resume medical therapy for complex coronary artery disease, chronic stable angina, ischemic cardiomyopathy and chronic systolic left ventricular dysfunction. No cardiac workup indicated for musculoskeletal chest pain. Stable cardiac jarrett for discharge home with outpatient cardaic follow up in 3-5 days. Patient advised to return to the ER should chest pain reoccur.
[2021-01-16] MEDS ORDERED: metOLazone 5 MG TAB PO SCH (10:00)
== END 2021-01-12 18:32 | disposition home or self-care (01) ==
LOC: ED 11:32 → 4A 14:07
PROVIDERS: ADMIT Internal Medicine; ATTEND Internal Medicine
DX: I24.9 Acute ischemic heart disease, unspecified (principal); N17.9 Acute kidney failure, unspecified; I12.9 Hypertensive chronic kidney disease with stage 1 through stage 4 chronic kidney disease, or unspecified chronic kidney disease; N18.9 Chronic kidney disease, unspecified; I25.10 Atherosclerotic heart disease of native coronary artery without angina pectoris; I89.0 Lymphedema, not elsewhere classified; G47.30 Sleep apnea, unspecified; H10.9 Unspecified conjunctivitis; I48.91 Unspecified atrial fibrillation; Z95.0 Presence of cardiac pacemaker; Z79.82 Long term (current) use of aspirin; Z86.711 Personal history of pulmonary embolism; Z86.718 Personal history of other venous thrombosis and embolism; Z95.1 Presence of aortocoronary bypass graft; Z79.899 Other long term (current) drug therapy
CPT/HCPCS: 36415; 71045; 80048; 80053; 80076; 82962; 83036; 83690; 84484; 85025; 85610; 93005; 96374; 96375; 96376; 99285; A9270; G0378; J1170; J1940; J2405

== ENCOUNTER 2021-02-05 09:43 | Outpatient (CLI) | payer MEDICARE ==
[2021-02-05] MEDS ORDERED: LIDOCAINE (4%) 40 MG/ML TOPICAL SOLN 50 ML BOTTLE TP ONE (10:24)
== END 2021-02-05 09:44 | disposition home or self-care (01) ==
LOC: WOUND 09:43
PROVIDERS: ATTEND Surgery
DX: S81.802A Unspecified open wound, left lower leg, initial encounter (principal); I87.312 Chronic venous hypertension (idiopathic) with ulcer of left lower extremity; E11.622 Type 2 diabetes mellitus with other skin ulcer; L97.822 Non-pressure chronic ulcer of other part of left lower leg with fat layer exposed; I89.0 Lymphedema, not elsewhere classified; E11.36 Type 2 diabetes mellitus with diabetic cataract; H26.9 Unspecified cataract; I11.0 Hypertensive heart disease with heart failure; I50.9 Heart failure, unspecified; I87.2 Venous insufficiency (chronic) (peripheral); I25.2 Old myocardial infarction; M10.9 Gout, unspecified; E66.01 Morbid (severe) obesity due to excess calories; Z68.37 Body mass index [BMI] 37.0-37.9, adult; Z86.718 Personal history of other venous thrombosis and embolism; Z95.0 Presence of cardiac pacemaker; Z95.818 Presence of other cardiac implants and grafts; Z79.4 Long term (current) use of insulin; X58.XXXA Exposure to other specified factors, initial encounter; Y93.89 Activity, other specified; Y92.89 Other specified places as the place of occurrence of the external cause; Y99.8 Other external cause status
CPT/HCPCS: 11042; 11045; G0463; 99214

== ENCOUNTER 2021-02-19 13:11 | Outpatient (CLI) | payer MEDICARE ==
[2021-02-19] MEDS ORDERED: LIDOCAINE (4%) 40 MG/ML TOPICAL SOLN 50 ML BOTTLE TP SCH (13:30)
== END 2021-02-19 13:12 | disposition home or self-care (01) ==
LOC: WOUND 13:11
PROVIDERS: ATTEND Surgery
DX: I89.0 Lymphedema, not elsewhere classified (principal); S81.802D Unspecified open wound, left lower leg, subsequent encounter; I87.312 Chronic venous hypertension (idiopathic) with ulcer of left lower extremity; E11.622 Type 2 diabetes mellitus with other skin ulcer; L97.822 Non-pressure chronic ulcer of other part of left lower leg with fat layer exposed; E11.36 Type 2 diabetes mellitus with diabetic cataract; H26.9 Unspecified cataract; I11.0 Hypertensive heart disease with heart failure; I50.9 Heart failure, unspecified; I87.2 Venous insufficiency (chronic) (peripheral); I25.2 Old myocardial infarction; M10.9 Gout, unspecified; E66.01 Morbid (severe) obesity due to excess calories; Z68.37 Body mass index [BMI] 37.0-37.9, adult; Z86.718 Personal history of other venous thrombosis and embolism; Z95.0 Presence of cardiac pacemaker; Z95.818 Presence of other cardiac implants and grafts; Z79.4 Long term (current) use of insulin; X58.XXXD Exposure to other specified factors, subsequent encounter

== ENCOUNTER 2021-04-30 11:39 | Outpatient (CLI) | payer MEDICARE ==
[2021-04-30] MEDS ORDERED: LIDOCAINE (4%) 40 MG/ML TOPICAL SOLN 50 ML BOTTLE TP ONE (14:20)
== END 2021-04-30 11:40 | disposition home or self-care (01) ==
LOC: WOUND 11:39
PROVIDERS: ATTEND Surgery
DX: I89.0 Lymphedema, not elsewhere classified (principal); S81.802D Unspecified open wound, left lower leg, subsequent encounter; I87.312 Chronic venous hypertension (idiopathic) with ulcer of left lower extremity; E11.622 Type 2 diabetes mellitus with other skin ulcer; L97.822 Non-pressure chronic ulcer of other part of left lower leg with fat layer exposed; E11.36 Type 2 diabetes mellitus with diabetic cataract; H26.9 Unspecified cataract; I11.0 Hypertensive heart disease with heart failure; I50.9 Heart failure, unspecified; I87.2 Venous insufficiency (chronic) (peripheral); I25.2 Old myocardial infarction; M10.9 Gout, unspecified; E66.01 Morbid (severe) obesity due to excess calories; Z68.37 Body mass index [BMI] 37.0-37.9, adult; Z86.718 Personal history of other venous thrombosis and embolism; Z95.0 Presence of cardiac pacemaker; Z95.818 Presence of other cardiac implants and grafts; Z79.4 Long term (current) use of insulin; X58.XXXD Exposure to other specified factors, subsequent encounter